=== PATIENT | female | born 1995 | race Caucasian/White ===

== ENCOUNTER 2020-04-18 10:59 | Outpatient (REF) | payer BC, SELFPAY | END 2020-04-18 11:00 | disposition home or self-care (01) | LOC: HO.LAB 10:59 | PROVIDERS: PCP Internal Medicine Medical Oncology; Visit Provider Internal Medicine | DX: Z20.828 Contact with and (suspected) exposure to other viral communicable diseases (principal) | CPT/HCPCS: 87635 ==

== ENCOUNTER 2020-06-10 06:21 | Emergency (ER) | payer BC, SELFPAY ==
[2020-06-10 06:24] VITALS: BP 151/94; PULSE 116; RESP 16; TEMP 36.6; O2SAT 97; BMI 48.0
--- NOTE | 2020-06-10 06:39 | ED.GENADULT ---
HPI - General Adult General Chief complaint: General Medical Stated complaint: abscess Time Seen by Provider: 06/10/20 06:39 Source: patient Mode of arrival: ambulatory Limitations: no limitations History of Present Illness MD complaint: labial abscess Onset (ago): day(s) (4) Location: genitals Severity: moderate Quality: burning and stabbing Pain Consistency: constant Relieving factors: none Exacerbating factors: none Associated symptoms: fever/chills Treatments prior to arrival: none Related Data Previous Rx's Medication Instructions Recorded cephalexin 500 mg PO TID 7 Days #21 cap 06/10/20 doxycycline hyclate 100 mg PO BID 7 Days #14 tab 06/10/20 hydrocodone-acetaminophen 1 tab PO Q6H PRN #12 tab 06/10/20 ibuprofen 600 mg PO Q6H PRN #30 tab 06/10/20 ondansetron 4 mg PO Q8H PRN #20 tab 06/10/20 Allergies Allergy/AdvReac Type Severity Reaction Status Date / Time No Known Allergies Allergy Verified 06/10/20 06:23 Review of Systems Review of Systems: Constitutional : No Fever, pos Chills ENT/Mouth : No sore throat, No Rhinorrhea Eyes: No Eye Pain, No Swelling, No Redness Cardiovascular : No Chest Pain, No SOB Respiratory : No Cough, No Sputum Gastrointestinal : No Nausea, No Vomiting, No Diarrhea, No abdominal Pain Genitourinary : No Dysuria, No Hematuria Musculoskeletal : No joint pain, No Myalgias, No Joint Swelling Skin : pos Skin Lesions, positive skin rash Neuro : No Weakness, No Numbness, No Headache Psych : No Anxiety, No Depression Heme/Lymph: No Bruising, No Bleeding,No Lymphadenopathy Endocrine : No Polyuria, No Polydipsia All other systems reviewed and are negative [facility] Past Medical History Attestation statement: The following information was validated with the patient. Medical History No known health problems Social History Social History (Updated 06/10/20 @ 06:44 by Telma Valadez DO) Smoking Status: Current every day smoker Use of substances other than those prescribed or required for medical reasons: No Advance Directives: No Advance Directives Information Provided: No Physical Exam Vital Signs: Vital Signs: Last Vital Signs Temp 98 F 06/10/20 06:24 Pulse 116 H 06/10/20 06:24 Resp 16 06/10/20 06:24 BP 151/94 H 06/10/20 06:24 Pulse Ox 97 06/10/20 06:24 Body Mass Index 48.0 Appearance: Alert. Oriented X3. No acute distress. Eyes: Pupils equal, round and reactive to light. ENT: Pharynx normal. Neck: Normal inspection. Neck supple. CVS: Normal heart rate and rhythm. Pulses normal. Respiratory: No respiratory distress. Breath sounds normal. Abdomen: Soft and nontender. : R labia 3cm abscess noted no overlying erythema or cellulitis no crepitus Skin: Skin warm and dry. Normal skin color. Normal skin turgor. Extremities: No lower extremity edema. No calf ttp Neuro: Oriented X 3. No motor deficit. No sensory deficit. Procedures Abscess I/D Site: other (LABIA) Side (if applicable): right Sedation/analgesia: none Local Anesthetic: lidocaine 2% Amount of anesthesia used (mL): 5 Technique: incised with blade Amount of fluid expressed (mL): 10 Sent for culture/gram staining?: No Irrigation: Yes Packing used?: none Medical Decision Making MDM Narrative Medical decision making narrative: 24 yo female with a hx of boils on her legs here with R labial abscess x 3 days, will start on oral antibiotics and I/D area - anticipate close follow up for wound care, no concern for necrotizing infection Discharge Plan Discharge Clinical Impression: Abscess of labia Patient Disposition: Home, Self-Care Instructions: Abscess (ED), Abscess Incision and Drainage (DC) Additional Instructions: return to ED for any worsening symptoms or concerns, can come back to ED on Thursday or for wound recheck take antibiotics, okay to take a shower, wound needs to be rechecked in 2 to 3 days Prescriptions: New hydrocodone-acetaminophen 5-325 mg tablet 1 tab PO Q6H PRN (Reason: pain) Qty: 12 RF: 0 ibuprofen 600 mg tablet 600 mg PO Q6H PRN (Reason: pain) Qty: 30 RF: 0 ondansetron 4 mg tablet,disintegrating 4 mg PO Q8H PRN (Reason: nausea and vomiting) Qty: 20 RF: 0 cephalexin 500 mg capsule 500 mg PO TID 7 Days Qty: 21 RF: 0 doxycycline hyclate 100 mg tablet 100 mg PO BID 7 Days Qty: 14 RF: 0 Referrals: Omi Lopez MD [Primary Care Provider] - 2 days Stand Alone Forms: Work/School Release
[2020-06-10] MEDS: cephALEXin 500 MG CAPSULE PO (07:03)
[2020-06-10] MEDS: oxyCODONE HCl Immed Release 5 MG TABLET 10 MG PO (07:03)
[2020-06-10] MEDS: Lidocaine HCl 2 % MPF 5 ML VIAL SUBCUT (07:15)
== END 2020-06-10 08:34 | disposition home or self-care (01) ==
PROVIDERS: Emergency Provider Emergency Medicine; PCP Internal Medicine Medical Oncology
DX: N76.4 Abscess of vulva (principal); F17.200 Nicotine dependence, unspecified, uncomplicated
CPT/HCPCS: 56405; 99283

== ENCOUNTER 2020-06-13 06:51 | Emergency (ER) | payer BC, SELFPAY ==
[2020-06-13 06:54] VITALS: BP 137/83; PULSE 87; RESP 16; TEMP 36; O2SAT 98; BMI 48.0
--- NOTE | 2020-06-13 07:25 | PC.NURSE ---
HERE FOR ABSCESS REEVAL POST 3 DAYS. AWAITING EVAL BY ATTENDING
--- NOTE | 2020-06-13 07:28 | ED.SKABFB ---
HPI - Skin/Abscess/Foreign Bdy General Chief complaint: Skin/Abscess/Foreign Body Stated complaint: Wound check Time Seen by Provider: 06/13/20 07:28 Source: patient Mode of arrival: ambulatory Limitations: no limitations History of Present Illness MD complaint: abscess/boil Onset (ago): day(s) (5) Tetanus up to date: yes Location: genitals Severity: mild Relieving factors: none Exacerbating factors: none Associated symptoms: denies other symptoms Treatments prior to arrival: other (s/p I + D 3 days ago doing well on antibiotics) Related Data Previous Rx's Medication Instructions Recorded cephalexin 500 mg PO TID 7 Days #21 cap 06/10/20 doxycycline hyclate 100 mg PO BID 7 Days #14 tab 06/10/20 hydrocodone-acetaminophen 1 tab PO Q6H PRN #12 tab 06/10/20 ibuprofen 600 mg PO Q6H PRN #30 tab 06/10/20 ondansetron 4 mg PO Q8H PRN #20 tab 06/10/20 Allergies Allergy/AdvReac Type Severity Reaction Status Date / Time No Known Allergies Allergy Verified 06/10/20 06:23 Review of Systems Review of Systems: Constitutional : No Fever, No Chills ENT/Mouth : No sore throat, No Rhinorrhea Eyes: No Eye Pain, No Swelling, No Redness Cardiovascular : No Chest Pain, No SOB Respiratory : No Cough, No Sputum Gastrointestinal : No Nausea, No Vomiting, No Diarrhea, No abdominal Pain Genitourinary : No Dysuria, No Hematuria Musculoskeletal : No joint pain, No Myalgias, No Joint Swelling Skin : pos Skin Lesions, no skin rash Neuro : No Weakness, No Numbness, No Headache Psych : No Anxiety, No Depression [facility] Past Medical History Attestation statement: The following information was validated with the patient. Medical History No known health problems Social History Social History Smoking Status: Current every day smoker Advance Directives: No Advance Directives Information Provided: Yes Physical Exam Vital Signs: Vital Signs: Last Vital Signs Temp 96.8 F 06/13/20 06:54 Pulse 87 06/13/20 06:54 Resp 16 06/13/20 06:54 BP 137/83 06/13/20 06:54 Pulse Ox 98 06/13/20 06:54 Body Mass Index 48.0 Appearance: Alert. Oriented X3. No acute distress. Eyes: Pupils equal, round and reactive to light. ENT: Pharynx normal. Neck: Normal inspection. Neck supple. CVS: Normal heart rate and rhythm. Pulses normal. Respiratory: No respiratory distress. Breath sounds normal. Abdomen: Soft and nontender. : R labia looks good scant ss drainage no recollection no cellulitis Skin: Skin warm and dry. Normal skin color. Normal skin turgor. Extremities: No lower extremity edema. No calf ttp Neuro: Oriented X 3. No motor deficit. No sensory deficit. MDM - Skin/Abscess/Foreign Bdy MDM Narrative Medical decision making narrative: 24 yo female s/p I+D well healing no systemic symptoms stable for DC Discharge Plan Discharge Clinical Impression: Abscess Patient Disposition: Home, Self-Care Instructions: Abscess (ED) Additional Instructions: complete antibiotics area is healing well Prescriptions: No Action hydrocodone-acetaminophen 5-325 mg tablet 1 tab PO Q6H PRN (Reason: pain) Qty: 12 RF: 0 ibuprofen 600 mg tablet 600 mg PO Q6H PRN (Reason: pain) Qty: 30 RF: 0 ondansetron 4 mg tablet,disintegrating 4 mg PO Q8H PRN (Reason: nausea and vomiting) Qty: 20 RF: 0 cephalexin 500 mg capsule 500 mg PO TID 7 Days Qty: 21 RF: 0 doxycycline hyclate 100 mg tablet 100 mg PO BID 7 Days Qty: 14 RF: 0
== END 2020-06-13 07:40 | disposition home or self-care (01) ==
PROVIDERS: Emergency Provider Emergency Medicine; PCP Internal Medicine Medical Oncology
DX: Z48.00 Encounter for change or removal of nonsurgical wound dressing (principal); N76.4 Abscess of vulva
CPT/HCPCS: 99283

== ENCOUNTER 2020-06-13 07:44 | Outpatient (REF) | payer BC, SELFPAY | END 2020-06-13 07:45 | disposition home or self-care (01) | LOC: HO.LAB 07:44 | PROVIDERS: PCP Internal Medicine Medical Oncology; Visit Provider Internal Medicine | DX: Z20.828 Contact with and (suspected) exposure to other viral communicable diseases (principal) | CPT/HCPCS: C9803; U0003 ==

== ENCOUNTER 2020-06-25 07:22 | Outpatient (REF) | payer OTHER, SELFPAY | END 2020-06-25 07:23 | disposition home or self-care (01) | LOC: HO.LAB 07:22 | PROVIDERS: Visit Provider Internal Medicine | DX: Z20.822 Contact with and (suspected) exposure to COVID-19 (principal) | CPT/HCPCS: 36415; C9803; U0003 ==

== ENCOUNTER 2020-12-05 13:29 | Outpatient (REF) | payer OTHER, SELFPAY ==
[2020-12-05 14:19] LABS: MANUAL DIFF FLAG NO
[2020-12-05 14:27] LABS: Basophils Percent Auto 0.2 % (0-2); Eosinophils Absolute Auto 0.1 X10*3/uL (0.0-0.4); Eosinophils Percent Auto 0.9 % (0-4); Hemoglobin 14.2 g/dl (12.0-16.0); Imm Gran Abs Auto 0.06 X10*3/uL (0.00-0.03); Imm Gran Pct Auto 0.5 % (0.0-0.4); Lymphocytes Absolute Auto 3.1 X10*3/uL (1.2-4.9); Lymphocytes Percent Auto 24.3 % (20-40); Mean Corpuscular Volume 93.9 fL (80-98); Monocytes Absolute Auto 0.9 X10*3/uL (0.1-1.2); Monocytes Percent Auto 6.7 % (2-11); Neutrophils Absolute Auto 8.6 X10*3/uL (2.0-8.3); Neutrophils Percent Auto 67.4 % (45-73); Platelet Count 320 X10*3/uL (160-400); Red Blood Count 4.58 X10*6/uL (4.20-5.50); Red Cell Distribution Width 12.2 % (11.0-16.0); White Blood Count 12.7 X10*3/uL (4.8-10.8)
[2020-12-05 14:38] LABS: Estimated Average Glucose 103 mg/dL; Hemoglobin A1c % 5.2 %
[2020-12-05 14:46] LABS: Alanine Aminotransferase 16 U/L (0-31); Albumin Level 4.4 g/dL (3.5-5.0); Alkaline Phosphatase 79 U/L (39-117); Anion Gap 11 (12-20); Aspartate Amino Transferase 15 U/L (5-31); Bilirubin Total 0.4 mg/dL (0.0-1.0); Blood Urea Nitrogen 11 mg/dL (9-16); Calcium 9.2 mg/dL (8.4-10.2); Carbon Dioxide 24 mmol/L (22-29); Chloride 106 mmol/L (96-108); Cholesterol 184 mg/dL; Estimated Glomerular Filt Rate > 60; Glucose Fasting 78 mg/dL (60-99); HDL Cholesterol 38 mg/dL; LDL Cholesterol Calculated 123 mg/dl; Potassium 4.2 mmol/L (3.3-5.1); Sodium 137 mmol/L (135-145); Total Protein 7.2 g/dL (6.5-8.0); Triglycerides 118 mg/dL
== END 2020-12-05 13:30 | disposition home or self-care (01) ==
LOC: HO.LAB 13:29
PROVIDERS: PCP Internal Medicine Medical Oncology; Visit Provider Internal Medicine Medical Oncology
DX: Z00.00 Encounter for general adult medical examination without abnormal findings (principal); R73.03 Prediabetes; R73.9 Hyperglycemia, unspecified
CPT/HCPCS: 36415; 80053; 80061; 83036; 85025

== ENCOUNTER 2020-12-18 11:33 | Emergency (ER) | payer OTHER, SELFPAY ==
[2020-12-18 12:19] VITALS: PULSE 88; RESP 16; TEMP 36.7; O2SAT 97; BMI 45.7
[2020-12-18] MEDS: Ketorolac Tromethamine 30 MG/ML VIAL IM (13:11)
[2020-12-18] MEDS: Lidocaine 4 % Patch ADH..PATCH 1 PATCH TRANSDERMA (13:11)
[2020-12-18] MEDS: oxyCODONE HCl Immed Release 5 MG TABLET PO (13:13)
[2020-12-18] MEDS: Cyclobenzaprine HCl 5 MG TABLET PO (13:31)
--- NOTE | 2020-12-18 14:06 | ED_ITS ---
HPI - Back Pain/Injury General Chief Complaint: Back Pain/Injury Stated Complaint: back pain Time Seen by Provider: 12/18/20 12:47 Source: patient Mode of arrival: ambulatory History of Present Illness HPI Narrative: 25-year-old female with past medical history sciatica presenting to the ED complaining of low back pain radiating down right lower extremity s/p walking down the stairs yesterday. Reports her sciatica is exacerbated. Denies direct injury/trauma or falls. Denies numbness, tingling, weakness, urinary incontinence /retention. MD elicited complaint: back pain Related Data Previous Rx's Medication Instructions Recorded cephalexin 500 mg PO TID 7 Days #21 cap 06/10/20 doxycycline hyclate 100 mg PO BID 7 Days #14 tab 06/10/20 hydrocodone-acetaminophen 1 tab PO Q6H PRN #12 tab 06/10/20 ibuprofen 600 mg PO Q6H PRN #30 tab 06/10/20 ondansetron 4 mg PO Q8H PRN #20 tab 06/10/20 acetaminophen [Tylenol Extra 500 mg PO Q6H PRN #20 tab 12/18/20 Strength] acetaminophen [Tylenol Extra 500 mg PO Q6H PRN #20 tab 12/18/20 Strength] cyclobenzaprine 5 mg PO Q8H PRN 5 Days #14 tab 12/18/20 lidocaine [Lidoderm] 1 patch TOPICAL DAILY PRN #30 ea 12/18/20 MDD remove after 12 hours naproxen 500 mg PO BID PRN 10 Days #20 tab 12/18/20 Allergies Allergy/AdvReac Type Severity Reaction Status Date / Time No Known Allergies Allergy Verified 06/10/20 06:23 Review of Systems Review of Systems: Constitutional: No Fever, No Chills Genitourinary: No Urinary Incontinence/retention Musculoskeletal:+back pain, No Myalgias, No Joint Swelling Skin: No Skin Lesions, No rash Neuro: No Weakness, No Numbness, No Paresthesias Yes all other systems are reviewed and are negative Neurologic: Denies Sensory deficit (Neuro) [facility] Past Medical History Attestation statement: The following information was validated with the patient. Medical History No known health problems Social History Social History Advance Directives: No Advance Directives Information Provided: No Patient : No Physical Exam Vital Signs: Vital Signs: Last Vital Signs Temp 98.1 F 12/18/20 12:19 Pulse 88 12/18/20 12:19 Resp 16 12/18/20 12:19 Pulse Ox 97 12/18/20 12:19 Body Mass Index 45.7 Const: General: cooperative and healthy appearing Orientation/consciousness: patient oriented x3 Limitations: no limitations HENMT: Head: Yes normal to inspection Ears: hearing grossly normal bilaterally General nose exam: Normal external nose present Face and sinus: Yes normal facial exam Eyes: General: appearance normal, both eyes and all related structures EOM: EOMs intact bilaterally Neck: Neck: Yes normal visual inspection and Yes no meningeal signs Resp: Effort & Inspection: normal respiratory effort Cardio: Rate: regular rate Back/Spine/Pelvis: Other: no midline thoracic/lumbar spinous tenderness, step- offs or deformity. +R sided lumbar MSK tenderness palpation and R sided buttock ttp Skin: Rashes: no rashes Wounds: no wounds Neuro: Other: no saddle anesthesia General: patient oriented x3, tone normal, moves all extremities and no meningeal signs Gait exam (Neuro): Normal gait present Motor exam (neuro): 5/5 motor strength present throughout Sensory Exam: No Sensory deficit (Neuro) Extrem: General: Yes normal to inspection MDM - Back Pain/Injury MDM Narrative Medical decision making narrative: 25-year-old female with past medical history sciatica presenting to the ED complaining of low back pain radiating down right lower extremity s/p walking down the stairs yesterday. On exam VSS, NAD, well appearing, no midline spinous tenderness throughout, no red flag symptoms. likely MSK pain / sciatica. Low concern for cauda equina/ cord compression or fracture/dislocation Discharge Plan Discharge Clinical Impression: Sciatica Qualifiers: Laterality: right Qualified Code(s): M54.31 - Sciatica, right side Patient Disposition: Home, Self-Care Instructions: Sciatica (ED), Lower Back Exercises (ED) Additional Instructions: Your pain is likely musculoskeletal Flexeril is a muscle relaxer, take at night as it makes you drowsy, do not d rive, drink alcohol, or operate machinery while taking it Naproxen as an anti-inflammatory / pain medication, take with food Lidoderm patches are numbing patches, apply to painful area In addition take Tylenol at home If symptoms persist or worsen, pain becomes unbearable, you developed urinary retention or incontinence, or weakness return to the ED Prescriptions: New acetaminophen [Tylenol Extra Strength] 500 mg tablet 500 mg PO Q6H PRN (Reason: pain or fever) Qty: 20 RF: 0 lidocaine [Lidoderm] 5 % adhesive patch,medicated 1 patch topical DAILY MDD remove after 12 hours PRN (Reason: pain) Qty: 30 RF: 0 naproxen 500 mg tablet 500 mg PO BID PRN (Reason: pain) 10 Days Qty: 20 RF: 0 cyclobenzaprine 5 mg tablet 5 mg PO Q8H PRN (Reason: pain (scale score 7-10)) 5 Days Qty: 14 RF: 0 acetaminophen [Tylenol Extra Strength] 500 mg tablet 500 mg PO Q6H PRN (Reason: pain or fever) Qty: 20 RF: 0 No Action hydrocodone-acetaminophen 5-325 mg tablet 1 tab PO Q6H PRN (Reason: pain) Qty: 12 RF: 0 ibuprofen 600 mg tablet 600 mg PO Q6H PRN (Reason: pain) Qty: 30 RF: 0 ondansetron 4 mg tablet,disintegrating 4 mg PO Q8H PRN (Reason: nausea and vomiting) Qty: 20 RF: 0 cephalexin 500 mg capsule 500 mg PO TID 7 Days Qty: 21 RF: 0 doxycycline hyclate 100 mg tablet 100 mg PO BID 7 Days Qty: 14 RF: 0 Referrals: Omi Lopez MD [Primary Care Provider] - 2 days Stand Alone Forms: Work/School Release Interventions: ED Discharge Assessment Last Done: 12/18/20 14:24 Discharge Date/Time: 12/18/20 14:28 Print Language: Indonesian
== END 2020-12-18 14:28 | disposition home or self-care (01) ==
PROVIDERS: Emergency Provider Emergency Medicine Emergency Medical Services; PCP Internal Medicine Medical Oncology
DX: M54.41 Lumbago with sciatica, right side (principal)
CPT/HCPCS: 96372; 99284; J1885

== ENCOUNTER 2020-12-28 15:53 | Outpatient (REF) | payer OTHER, SELFPAY ==
--- NOTE | ~2020-12-28 | XR_ITS ---
EXAMINATION: LUMBAR SPINE AND PELVIS X-RAY CLINICAL INFORMATION: Low back pain. Sciatica. COMPARISON: Previous lumbar spine x-ray August 2010 TECHNIQUE: 5 views of the lumbar spine. One view of the pelvis. FINDINGS: Lumbar spine: There is mild curvature of the lumbar spine to the left. Bone alignment is otherwise normal. No fracture or dislocation is seen. There is mild degenerative disc disease at L5-S1. There is partial sacralization of the left L5 transverse process. Facet joints are normal. No pars defect is seen. Pelvis: Bone alignment is normal. No fracture or dislocation is seen. The joint spaces are normal. Soft tissues are normal. XR/XR lumbar spine 4V min IMPRESSION: Lumbar spine: Mild degenerative disc disease at L5-S1. Partial sacralization of the left L5 transverse process. Pelvis: Unremarkable exam.
--- NOTE | ~2020-12-28 | XR_ITS ---
EXAMINATION: LUMBAR SPINE AND PELVIS X-RAY CLINICAL INFORMATION: Low back pain. Sciatica. COMPARISON: Previous lumbar spine x-ray August 2010 TECHNIQUE: 5 views of the lumbar spine. One view of the pelvis. FINDINGS: Lumbar spine: There is mild curvature of the lumbar spine to the left. Bone alignment is otherwise normal. No fracture or dislocation is seen. There is mild degenerative disc disease at L5-S1. There is partial sacralization of the left L5 transverse process. Facet joints are normal. No pars defect is seen. Pelvis: Bone alignment is normal. No fracture or dislocation is seen. The joint spaces are normal. Soft tissues are normal. XR/XR pelvis 1-2V IMPRESSION: Lumbar spine: Mild degenerative disc disease at L5-S1. Partial sacralization of the left L5 transverse process. Pelvis: Unremarkable exam.
== END 2020-12-28 15:54 | disposition home or self-care (01) ==
LOC: HO.XRAY 15:53
PROVIDERS: PCP Internal Medicine Medical Oncology; Visit Provider Internal Medicine Medical Oncology
DX: M54.5 Low back pain (principal); M54.9 Dorsalgia, unspecified; M54.30 Sciatica, unspecified side
CPT/HCPCS: 72110; 72170

== ENCOUNTER 2021-03-21 17:00 | Outpatient (RCR) | payer OTHER, MEDICAID, SELFPAY | END 2021-04-22 10:41 | disposition home or self-care (01) | LOC: HO.PT 17:00 | PROVIDERS: PCP Internal Medicine Medical Oncology; Visit Provider Physician Assistant | DX: M51.16 Intervertebral disc disorders with radiculopathy, lumbar region (principal) | CPT/HCPCS: 97012; 97110; 97161; 97530 ==

== ENCOUNTER 2021-08-14 12:06 | Outpatient (REF) | payer OTHER, SELFPAY ==
[2021-08-14 14:00] LABS: Hematocrit 42.8 % (37.0-47.0); Hemoglobin 14.2 g/dl (12.0-16.0); Mean Corpuscular HGB Conc 33.2 g/dl (31.0-35.0); Mean Corpuscular Hemoglobin 31.3 pg (27.0-33.0); Mean Corpuscular Volume 94.3 fL (80.0-98.0); Mean Platelet Volume 9.1 fL (9.4-12.3); Platelet Count 325 X10*3/uL (160-400); Red Blood Count 4.54 X10*6/uL (4.20-5.50); Red Cell Distribution Width 12.6 % (11.0-16.0); White Blood Count 10.9 X10*3/uL (4.8-10.8)
[2021-08-14 14:37] LABS: Erythrocyte Sedimentation Rate 12 MM/HR (0-20)
[2021-08-14 14:40] LABS: Free T4 (Free Thyroxine) 0.87 ng/dL (0.71-1.85); HCG Quantitative < 2 mIU/mL; Thyroid Stimulating Hormone 1.62 uIU/mL (0.32-4.0)
[2021-08-15 07:41] LABS: Prolactin 6.6 ng/mL
== END 2021-08-14 12:07 | disposition home or self-care (01) ==
LOC: HO.10HDL 12:06
PROVIDERS: Visit Provider Obstetrics & Gynecology
DX: O92.6 Galactorrhea (principal)
CPT/HCPCS: 36415; 84146; 84439; 84443; 84702; 85027; 85652

== ENCOUNTER 2022-01-31 09:14 | Outpatient (REF) | payer OTHER, SELFPAY ==
--- NOTE | ~2022-01-31 | XR_ITS ---
EXAMINATION: XR FOOT, LEFT CLINICAL INFORMATION: Left foot pain. Bruising and swelling lateral foot for one week. COMPARISON: None TECHNIQUE: AP, lateral, and oblique views of the left foot. FINDINGS: No acute or healing fracture, dislocation, or destructive process. Bony mineralization normal. No calcaneal spurring. Subtalar joint unremarkable. Retrocalcaneal recess preserved. No joint narrowing or erosive changes. XR/XR foot LT min 3V IMPRESSION: No fracture, dislocation, or arthropathy.
== END 2022-01-31 09:15 | disposition home or self-care (01) ==
LOC: HO.XRAY 09:14
PROVIDERS: PCP Internal Medicine Medical Oncology; Visit Provider Internal Medicine Medical Oncology
DX: M79.672 Pain in left foot (principal)
CPT/HCPCS: 73630

== ENCOUNTER 2022-03-28 08:45 | Outpatient (REF) | payer OTHER, SELFPAY ==
--- NOTE | ~2022-03-28 | XR_ITS ---
EXAMINATION: XR CHEST CLINICAL INFORMATION: Obesity COMPARISON: Previous chest x-ray September 2014 TECHNIQUE: 2 views of the chest were obtained. FINDINGS: No significant abnormality is noted involving the heart, lungs, mediastinum, bony thorax or soft tissues. XR/XR chest 2V IMPRESSION: Unremarkable examination.
[2022-03-28 09:26] LABS: Basophils Percent Auto 0.4 % (0-2); Eosinophils Absolute Auto 0.1 X10*3/uL (0.0-0.4); Eosinophils Percent Auto 1.3 % (0-4); Hematocrit 42.3 % (37.0-47.0); Hemoglobin 14.2 g/dl (12.0-16.0); Imm Gran Abs Auto 0.04 X10*3/uL (0.00-0.03); Imm Gran Pct Auto 0.4 % (0.0-0.4); Lymphocytes Absolute Auto 2.1 X10*3/uL (1.2-4.9); Lymphocytes Percent Auto 19.9 % (20-40); MANUAL DIFF FLAG SCAN; Mean Corpuscular HGB Conc 33.6 g/dl (31.0-35.0); Mean Corpuscular Volume 92.4 fL (80.0-98.0); Monocytes Absolute Auto 0.7 X10*3/uL (0.1-1.2); Monocytes Percent Auto 6.6 % (2-11); Neutrophils Absolute Auto 7.4 x10*3/uL (2.0-8.3); Neutrophils Percent Auto 71.4 % (45-73); PLT CLUMP 1; Red Blood Count 4.58 X10*6/uL (4.20-5.50); Red Cell Distribution Width 12.2 % (11.0-16.0); SCAN SMEAR FLAG 1
[2022-03-28 09:47] LABS: Alanine Aminotransferase 14 U/L (0-31); Alkaline Phosphatase 73 U/L (39-117); Anion Gap 15 (12-20); Aspartate Amino Transferase 15 U/L (5-31); Bilirubin Total 0.3 mg/dL (0.0-1.0); Blood Urea Nitrogen 11 mg/dL (9-16); C Reactive Protein 0.52 mg/dL (< or = 0.50); Calcium 8.9 mg/dL (8.4-10.2); Carbon Dioxide 21 mmol/L (22-29); Chloride 107 mmol/L (96-108); Cholesterol 209 mg/dL; Estimated Glomerular Filt Rate > 60; Glucose Random 94 mg/dL (60-115); HDL Cholesterol 38 mg/dL; Iron 79 mcg/dL (30-160); LDL Cholesterol Calculated 150 mg/dl; Percent Iron Saturation 24 % (15-50); Potassium 4.6 mmol/L (3.3-5.1); Sodium 138 mmol/L (135-145); Total Iron Binding Capacity 324 mcg/dL (228-428); Total Protein 6.7 g/dL (6.5-8.0); Triglycerides 109 mg/dL; Unsaturated Iron Binding 245 ug/dL
[2022-03-28 10:11] LABS: Ferritin 137 ng/mL (10-122); Insulin 16 uU/mL (2-29); TSH reflex Free T4 1.78 uIU/mL (0.32-4.0); Vitamin D 25-OH Total 24.5 ng/mL (>30)
[2022-03-28 10:25] LABS: Estimated Average Glucose 100 mg/dL; Hemoglobin A1c % 5.1 %
[2022-03-28 10:26] LABS: Platelet Count 245 X10*3/uL (160-400); White Blood Count 10.3 X10*3/uL (4.8-10.8)
[2022-03-28 10:27] LABS: SLIDE REVIEW VERIFIED
[2022-03-28 10:30] LABS: Vitamin B12 269 pg/mL (200-900)
--- NOTE | 2022-03-28 10:45 | ECG_ITS ---
Test Reason : obesity Blood Pressure : / mmHG Vent. Rate : 067 BPM Atrial Rate : 067 BPM P-R Int : 162 ms QRS Dur : 092 ms QT Int : 400 ms P-R-T Axes : 043 060 021 degrees QTc Int : 422 ms Normal sinus rhythm with sinus arrhythmia Normal ECG No previous ECGs available Referred By: Minoo Arellano Electronically Signed By:HARI PETERSON
[2022-03-28 15:09] LABS: H Pylori Breath Test Negative (Negative)
[2022-03-30 13:41] LABS: Calcium (PTHI) 8.8 mg/dL (8.6-10.2); PTHI 38 pg/mL (16-77)
[2022-04-02 06:12] LABS: Zinc 83 mcg/dL (60-130)
[2022-04-02 16:12] LABS: Vitamin B1 8 nmol/L (8-30)
[2022-04-02 17:33] LABS: Vitamin A 38 mcg/dL (38-98)
== END 2022-03-28 08:46 | disposition home or self-care (01) ==
LOC: HO.XRAY 08:45
PROVIDERS: PCP Internal Medicine Medical Oncology; Visit Provider Physician Assistant
DX: E66.01 Morbid (severe) obesity due to excess calories (principal); K21.9 Gastro-esophageal reflux disease without esophagitis; G47.33 Obstructive sleep apnea (adult) (pediatric)
CPT/HCPCS: 36415; 71046; 80053; 80061; 82306; 82607; 82728; 82746; 83013; 83036; 83525; 83540; 83970; 84425; 84443; 84590; 84630; 85025; 86140; 93005; 99211; 99212

== ENCOUNTER → 2022-04-01 13:21 | Outpatient (BNVA) | payer OTHER, SELFPAY | PROVIDERS: PCP Internal Medicine Medical Oncology; Visit Provider Dietitian, Registered | DX: E66.01 Morbid (severe) obesity due to excess calories (principal) | CPT/HCPCS: 97802 ==

== ENCOUNTER → 2022-04-02 11:00 | Outpatient (BNVA) | payer OTHER, SELFPAY | PROVIDERS: PCP Internal Medicine Medical Oncology; Visit Provider Counselor Mental Health | DX: F43.20 Adjustment disorder, unspecified (principal); E66.01 Morbid (severe) obesity due to excess calories; Z63.4 Disappearance and death of family member | CPT/HCPCS: 90791 ==

== ENCOUNTER 2022-08-25 11:23 | Outpatient (REF) | payer OTHER, SELFPAY ==
--- NOTE | ~2022-08-25 | XR_ITS ---
EXAMINATION: XR ANKLE, LEFT CLINICAL INFORMATION: Pain. COMPARISON: Radiographs dated 01/31/2022. TECHNIQUE: AP, lateral, and mortise views of the left ankle. FINDINGS: Bony alignment and mineralization are normal. The ankle mortise is intact. No fracture, dislocation or left ankle joint effusion is seen. Boehler's angle is normal. There is no calcaneal spur. No unusual degenerative change is seen. There is mild generalized soft tissue swelling. XR/XR ankle LT min 3V IMPRESSION: There is mild generalized soft tissue swelling. Otherwise, unremarkable examination.
== END 2022-08-25 11:24 | disposition home or self-care (01) ==
LOC: HO.LAB 11:23
PROVIDERS: PCP Internal Medicine Medical Oncology; Visit Provider Internal Medicine Medical Oncology
DX: M25.572 Pain in left ankle and joints of left foot (principal)
CPT/HCPCS: 73610

== ENCOUNTER 2023-03-10 17:39 | Outpatient (REF) | payer OTHER, SELFPAY | END 2023-03-10 17:40 | disposition home or self-care (01) | LOC: HO.LNP 17:39 | PROVIDERS: Visit Provider Internal Medicine Medical Oncology | DX: L02.91 Cutaneous abscess, unspecified (principal) | CPT/HCPCS: 87070; 87077; 87186; 87205 ==

== ENCOUNTER 2023-06-05 09:55 | Outpatient (REF) | payer OTHER, SELFPAY ==
--- NOTE | ~2023-06-05 | XR_ITS ---
EXAMINATION: XR HAND, LEFT CLINICAL INFORMATION: Left hand pain COMPARISON: None available. TECHNIQUE: PA, lateral, and oblique views of the left hand. FINDINGS: BONES: Bony structures are intact. A sclerotic bone island measuring 0.3 cm in diameter is seen at the left fifth metacarpal head. There is no focal bone destruction or periosteal reaction seen. JOINTS: Alignment of joints is normal. SOFT TISSUE: Soft tissue is normal. No radiopaque foreign body or abnormal air collection is seen. XR/XR hand LT min 3V IMPRESSION: 1. Left fifth metacarpal head sclerotic bone island is present. 2. No fracture or dislocation or signs of osteomyelitis are found.
--- NOTE | ~2023-06-05 | XR_ITS ---
EXAMINATION: XR HAND, RIGHT CLINICAL INFORMATION: Right hand pain COMPARISON: None available. TECHNIQUE: PA, lateral, and oblique views of the right hand. FINDINGS: BONES: Bony structures are intact. There is no focal bone destruction or periosteal reaction seen. JOINTS: Alignment of joints is normal. SOFT TISSUE: Soft tissue is normal. No radiopaque foreign body or abnormal air collection is seen. XR/XR hand RT min 3V IMPRESSION: 1. Normal x-rays of right hand. No fracture or dislocation or signs of osteomyelitis are found.
== END 2023-06-05 09:56 | disposition home or self-care (01) ==
LOC: HO.XRAY 09:55
PROVIDERS: PCP Internal Medicine Medical Oncology; Visit Provider Internal Medicine Medical Oncology
DX: M79.641 Pain in right hand (principal); M79.642 Pain in left hand
CPT/HCPCS: 73130

== ENCOUNTER 2023-07-24 09:37 | Emergency (ER) | payer OTHER, SELFPAY ==
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
[2023-07-24 09:43] VITALS: BP 152/86; PULSE 90; RESP 16; TEMP 36.7
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
[2023-07-24] MEDS: Acetaminophen 325 MG TABLET 975 MG PO (11:10)
[2023-07-24] MEDS: Ibuprofen 800 MG TABLET PO (11:11)
== END 2023-07-24 12:45 | disposition home or self-care (01) ==
PROVIDERS: Emergency Provider Emergency Medicine Emergency Medical Services; PCP Internal Medicine Medical Oncology
DX: M54.16 Radiculopathy, lumbar region (principal)
CPT/HCPCS: 72100; 99283

== ENCOUNTER 2023-07-28 07:46 | Emergency (ER) | payer OTHER, SELFPAY ==
--- NOTE | ~2023-07-28 | XR_ITS ---
EXAMINATION: XR CHEST CLINICAL INFORMATION: Cough/SOB COMPARISON: None available. TECHNIQUE: 2 views of the chest were obtained. FINDINGS: No significant abnormality is noted involving the heart, lungs, mediastinum, bony thorax or soft tissues. XR/XR chest 2V IMPRESSION: Unremarkable chest examination.
[2023-07-28 07:49] VITALS: BP 128/89; PULSE 106; RESP 24; TEMP 37.1; O2SAT 96; BMI 49.3
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
[2023-07-28 09:05] LABS: Influenza A PCR POSITIVE (Negative); Influenza B PCR NEGATIVE (Negative); Resp Syncy Virus RNA Qual PCR NEGATIVE (Negative); SARS COV2 PCR INHOUSE NEGATIVE (Negative)
== END 2023-07-28 09:41 | disposition home or self-care (01) ==
PROVIDERS: Emergency Provider Emergency Medicine; PCP Internal Medicine Medical Oncology
DX: J10.1 Influenza due to other identified influenza virus with other respiratory manifestations (principal); R05.9 Cough, unspecified; R09.89 Other specified symptoms and signs involving the circulatory and respiratory systems; R06.02 Shortness of breath; R51.9 Headache, unspecified
CPT/HCPCS: 0241U; 71046; 99282; 99283

== ENCOUNTER → 2023-11-02 08:58 | Outpatient (BNVA) | payer OTHER, SELFPAY | PROVIDERS: PCP Internal Medicine Medical Oncology; Visit Provider Physician Assistant Surgical ==

== ENCOUNTER 2023-12-25 08:04 | Outpatient (AMB) | payer OTHER, SELFPAY ==
--- NOTE | 2023-12-25 09:02 | A.OFFVIS_ITS ---
VS Expanded 12/25/23 09:13 Height 5 ft 4 in Weight 282 lb 2 oz BMI 48.4 Body Fat % 48.4 Body Fat Mass 136.4 Fat Free Mass 145.8 Visceral Fat Rating 14 Body Water % 37.1 Body Water Mass 104.8 Basal Metabolic Rate/Score 2,115 Intake Visit Reasons: TV Re-Est SWL BMI 47 *SEE COMMENTS* Allergies No Known Allergies Allergy (Verified 12/25/23 09:02) Medication List - Last Reconciled 12/25/23 by Jermain Cardoso MD No Known Home Meds HPI HPI TV Re-Est SWL BMI 47 *SEE COMMENTS*: Details: Start time: 8.55am, End time: 9.35am ?I spent 35 minutes speaking with the patient on the phone plus an additional 5 minutes reviewing and updating records for a total of 40 minutes HPI Comments Details: Previous weight loss efforts: self diets, [facility] program (stopped due to ankle surgery) Wakes up: 7.30am, Sleeps: 10pm Breakfast: 8.30am (oatmeal with berries, avocado toast) Lunch: 12.30pm (salad and vegan options) Dinner: 7pm (pasta, rice, vegetable, chicken) Snacks: 11am (fruit, carrots), 8.30pm (ice cream, nuts) Exercise: gym membership Fluids: Coffee: none, hot tea: 3/wk (oatmilk), soda: none, juice: none, ETOH: rarely PFSH Medical History (Updated 12/25/23 @ 09:03 by Jermain Cardoso MD) GERD (gastroesophageal reflux disease) Fracture, ankle No known health problems Surgical History (Updated 11/02/23 @ 09:17 by Allie Samaniego CMA) History of ankle surgery Family History Mother No problems noted. Father Heart problem Vertigo Diabetes Hypertension High cholesterol Obesity Brother Lupus Obesity Hypertension Social History Alcohol intake: current Alcohol intake frequency: holidays/special occasions only Patient Tobacco Use Status: Current everyday Tobacco user Cigarettes Per Day: 8 Substance Use Type: Marijuana Physical Exam Vital Signs: BMI result Body Mass Index 48.4 Telehealth Telehealth Telehealth Platform: Telephone Location of provider rendering services: practice address Location of patient: address on file Patient Identification confirmed using: Name, : Yes Telehealth method: voice only Patient verbally consented to treatment: Yes Patient verbally consented to billing insurance company: Yes Patient informed of any privacy concerns related to visit: Yes Minutes spent on Phone/Video with Pt.: 40 Assessment & Plan Assessment & Plan (1) Morbid obesity: Code(s): E66.01 - Morbid (severe) obesity due to excess calories Category: Medical Plan: 1.? Plan for lap sleeve gastrectomy. If diaphragmatic or ventral hernias are present at time of surgery, these will be repaired laparoscopically as well. Risks and complications were discussed in detail including possible conversion to an open procedure, anastomotic leak, bleeding requiring transfusion, small bowel obstruction, , DVT and pulmonary embolism, cardiac, or pulmonary complications, as chcf complications such as anastomotic ulcer, insufficient weight loss and vitamin deficiencies. I emphasized the importance of close follow-up, adherence to instructions and good communication. 2. You will receive a link of our software vandana to generate an individualized nutritional and exercise plan specific for you. Please send me a screenshot of the plans you will generate Meal to include lean meat (beef, fish, pork, turkey, chicken), or slovak yogurt, or egg whites, or beans with a salad with olive oil and fruits (berries, pears, apples, kiwi). Avoid salt, breads, potatoes, rice, pasta, desserts. ?3. If you choose shakes, each shake would be drunk slowly, like coffee in a period of 2 hours. ?4. If you choose bars, cut each bar in 4 pieces and eat each piece in 30min ?to make each bar last 2 hours. ?5. I emphasized the importance of measuring accurately the food portion and measure it when serving the food in plate ?6. The meal portions include a specific number of forks of meat and salad. You always eat the meat portion but you can replace up to half of salad/vegetables portion with rice, potatoes or pasta, or a fruit ?if you like. The less you do it the better weight loss will be. ?7. One full-size fork is what it can be scooped on the fork without falling aside and not what can be bit with the fork. Use regular forks like those you find in a typical restaurant. ?8.? Please send me weight measurements as soon as possible and then once a week. Always include your diet and exercise plan. 9. The best choice would be to purchase a stationary bike, elliptical or treadmill at home that can track calories. Let me know if you do so I can give you an exercise plan. ?10.?It is important of avoiding and for at least 18 months postoperatively and has been discussed at the infosession. ?11. Goal is to lose at least 1.5-2lbs per week ?12. Goal to lose 10% of your weight before surgery, which is about 28lbs. Ultimate weight goal: 254lbs before surgery 13. Please follow the diet plan exactly without any change. If you don't like something about the plan or you feel hungry you need to communicate with me so I can help you revise the plan. You should not change the plan yourself. 14. To be scheduled for EGD due to history of GERD. The possibility of biopsies was discussed. Patient needs to avoid use of NSAIDs and aspirin for 1 week prior to EGD. Risks of perforation and bleeding was discussed with the patient. This will be an outpatient procedure with IV sedation. Orders: Orders Insulin Today E66.01 - Morbid (severe) obesity due to excess calories, G47.33 - Obstructive sleep apnea (adult) (pediatric), K21.9 - Gastro-esophageal reflux disease without esophagitis H Pylori Breath Test Today E66.01 - Morbid (severe) obesity due to excess calories, G47.33 - Obstructive sleep apnea (adult) (pediatric), K21.9 - Gastro- esophageal reflux disease without esophagitis Complete Blood Count Auto Diff Today E66.01 - Morbid (severe) obesity due to excess calories, G47.33 - Obstructive sleep apnea (adult) (pediatric), K21.9 - Gastro-esophageal reflux disease without esophagitis Lipid Panel Today E66.01 - Morbid (severe) obesity due to excess calories, G47.33 - Obstructive sleep apnea (adult) (pediatric), K21.9 - Gastro-esophageal reflux disease without esophagitis Vitamin B12 and Folate Today E66.01 - Morbid (severe) obesity due to excess calories, G47.33 - Obstructive sleep apnea (adult) (pediatric), K21.9 - Gastro-esophageal reflux disease without esophagitis Zinc Today E66.01 - Morbid (severe) obesity due to excess calories, G47.33 - Obstructive sleep apnea (adult) (pediatric), K21.9 - Gastro-esophageal reflux disease without esophagitis C Reactive Protein Today E66.01 - Morbid (severe) obesity due to excess calories, G47.33 - Obstructive sleep apnea (adult) (pediatric), K21.9 - Gastro- esophageal reflux disease without esophagitis Vitamin B1 Today E66.01 - Morbid (severe) obesity due to excess calories, G47.33 - Obstructive sleep apnea (adult) (pediatric), K21.9 - Gastro-esophageal reflux disease without esophagitis Vitamin D 25-OH Total Today E66.01 - Morbid (severe) obesity due to excess calories, G47.33 - Obstructive sleep apnea (adult) (pediatric), K21.9 - Gastro- esophageal reflux disease without esophagitis Hemoglobin A1c Today E66.01 - Morbid (severe) obesity due to excess calories, G47.33 - Obstructive sleep apnea (adult) (pediatric), K21.9 - Gastro-esophageal reflux disease without esophagitis IRON PROFILE Today E66.01 - Morbid (severe) obesity due to excess calories, G47.33 - Obstructive sleep apnea (adult) (pediatric), K21.9 - Gastro-esophageal reflux disease without esophagitis Comprehensive Met. Panel Today E66.01 - Morbid (severe) obesity due to excess calories, G47.33 - Obstructive sleep apnea (adult) (pediatric), K21.9 - Gastro- esophageal reflux disease without esophagitis Vitamin A Today E66.01 - Morbid (severe) obesity due to excess calories, G47.33 - Obstructive sleep apnea (adult) (pediatric), K21.9 - Gastro-esophageal reflux disease without esophagitis TSH reflex Free T4 Today E66.01 - Morbid (severe) obesity due to excess calories, G47.33 - Obstructive sleep apnea (adult) (pediatric), K21.9 - Gastro- esophageal reflux disease without esophagitis Ferritin Today E66.01 - Morbid (severe) obesity due to excess calories, G47.33 - Obstructive sleep apnea (adult) (pediatric), K21.9 - Gastro-esophageal reflux disease without esophagitis US abdomen comp w elastography Today E66.01 - Morbid (severe) obesity due to excess calories, G47.33 - Obstructive sleep apnea (adult) (pediatric), K21.9 - Gastro-esophageal reflux disease without esophagitis XR chest 2V Today E66.01 - Morbid (severe) obesity due to excess calories, G47.33 - Obstructive sleep apnea (adult) (pediatric), K21.9 - Gastro-esophageal reflux disease without esophagitis ECG 12 lead EKG Today E66.01 - Morbid (severe) obesity due to excess calories, G47.33 - Obstructive sleep apnea (adult) (pediatric), K21.9 - Gastro-esophageal reflux disease without esophagitis FL upper GI w air Today E66.01 - Morbid (severe) obesity due to excess calories, G47.33 - Obstructive sleep apnea (adult) (pediatric), K21.9 - Gastro- esophageal reflux disease without esophagitis Referrals Behavioral Health Referral E66.01 - Morbid (severe) obesity due to excess calories, G47.33 - Obstructive sleep apnea (adult) (pediatric), K21.9 - Gastro- esophageal reflux disease without esophagitis Nutrition/Dietitian Referral E66.01 - Morbid (severe) obesity due to excess calories, G47.33 - Obstructive sleep apnea (adult) (pediatric), K21.9 - Gastro- esophageal reflux disease without esophagitis
[2023-12-25 09:13] VITALS: BMI 48.4
== END 2023-12-25 09:36 | disposition home or self-care (01) ==
LOC: HO.HBS 08:04
PROVIDERS: PCP Internal Medicine Medical Oncology; Visit Provider Surgery
DX: E66.01 Morbid (severe) obesity due to excess calories (principal)
CPT/HCPCS: 99203

== ENCOUNTER → 2023-12-25 08:04 | Outpatient (BNVA) | payer OTHER, SELFPAY | PROVIDERS: PCP Internal Medicine Medical Oncology; Visit Provider Surgery ==

== ENCOUNTER 2024-01-06 08:24 | Outpatient (REF) | payer OTHER, SELFPAY ==
--- NOTE | ~2024-01-06 | XR_ITS ---
EXAMINATION: XR chest 2V CLINICAL INFORMATION: Reason for Exam E66.01 - Morbid (severe) obesity due to excess calories COMPARISON: July 2023 TECHNIQUE: XR chest 2V, 2 Views Lungs and [place]: Both lungs are clear. Pleura: Normal. Costophrenic angles are sharp. No pneumothorax. Heart: The heart is normal in size. Mediastinum: The mediastinum is within normal limits.. Bones: Skeletal structures included are normal for patient's age. XR/XR chest 2V IMPRESSION: No radiographic evidence of acute cardiopulmonary disease.
--- NOTE | ~2024-01-06 | US_ITS ---
EXAMINATION: US COMPLETE ABDOMEN WITH LIVER ELASTOGRAPHY CLINICAL INFORMATION: Morbid obesity. COMPARISON: None available. TECHNIQUE: Real-time imaging of the abdominal viscera. Noninvasive ultrasound liver fibrosis assessment is performed using Jes[employer]s Elast[employer] point quantification shear wave elastography (2D-SWE) with a C5-2 MHz transducer. Multiple elastography samples are obtained. FINDINGS: PANCREAS: Normal. The visualized pancreatic head and body are normal in appearance. The remainder of the pancreas is obscured from visualization by the overlying bowel gas. ABDOMINAL AORTA: The proximal, middle, and distal aortic segments are normal in caliber. INFERIOR VENA CAVA: Visualized portions are normal. LIVER: The liver demonstrates normal size, contour and generally increased echogenicity. No focal lesion or intrahepatic biliary duct dilatation. The right lobe measures 15.0 cm in length. The left lobe measures 10.2 cm in length. Portal flow is towards the liver (hepatopetal). Shear wave liver elastography median stiffness is 1.52 m/s (reference: normal median stiffness is 1.3 m/s or less). IQR/median stiffness to assess sampling precision is 0.19 (reference: good quality data set is IQR/median stiffness of 0.15 or less). GALLBLADDER: Normal. The gallbladder is physiologically distended without evidence of stones, sludge, polyps, wall thickening or pericholecystic fluid. COMMON BILE DUCT: Normal in caliber measuring 0.3 cm in diameter. RIGHT KIDNEY: Normal. No hydronephrosis. No renal calculi or focal parenchymal lesions. The kidney measures 9.9 cm in maximum dimension. LEFT KIDNEY: Normal. No hydronephrosis. No renal calculi or focal parenchymal lesions. The kidney measures 11.2 cm in maximum dimension. SPLEEN: Normal. The spleen measures 9.9 cm in maximum dimension. FREE FLUID: None. US/US abdomen comp w elastography IMPRESSION: 1. There is generalized increase in hepatic echotexture, consistent with fatty infiltration or hepatocellular disease. Please correlate clinically. No focal hepatic mass or intrahepatic biliary dilatation is seen. 2. Liver elastography: Although measurements appear to rule out compensated advanced chronic liver disease, there is statistical variability of the sampling which decreases accuracy. REFERENCE: Society of Radiologists in Ultrasound Liver Stiffness Thresholds (2019): LIVER STIFFNESS THRESHOLDS: *Liver Stiffness equal or less than 1.3 m/s: High probability of being normal. *Liver Stiffness less than 1.7 m/s: In the absence of other known clinical signs, rules out compensated advanced chronic liver disease. *Liver Stiffness 1.7-2.1 m/s: Suggestive of compensated advanced chronic liver disease but need further test for confirmation. *Liver Stiffness over 2.1 m/s: Rules in compensated advanced chronic liver disease. *Liver Stiffness over 2.4 m/s: Suggestive of clinically significant portal hypertension. QUALITY OF DATA SET: *IQR/Median value equal or less than 0.15 implies a quality data set. *IQR/Median value over 0.15 implies a poor quality data set. SIGNIFICANT CHANGE FROM PRIOR EXAM: Significant change if liver stiffness measurement is 10% or greater from prior exam. OTHER CONSIDERATIONS: The stage of liver fibrosis may be overestimated in the setting of acute hepatitis, liver inflammation, elevated liver function tests, hepatic vascular congestion, obstructive cholestasis, non-fasting state, and infiltrative diseases such as amyloidosis and lymphoma. In some patients with NAFLD, the liver stiffness thresholds for compensated advanced chronic liver disease may be lower. In causes other than viral hepatitis and NAFLD, liver stiffness thresholds are not well established.
[2024-01-06 09:26] LABS: MANUAL DIFF FLAG NO
--- NOTE | 2024-01-06 09:27 | ECG_ITS ---
Test Reason : e66.01 Blood Pressure : / mmHG Vent. Rate : 070 BPM Atrial Rate : 070 BPM P-R Int : 160 ms QRS Dur : 092 ms QT Int : 406 ms P-R-T Axes : 047 065 020 degrees QTc Int : 438 ms Normal sinus rhythm with sinus arrhythmia Normal ECG When compared with ECG of 28-MAR-2022 10:43, No significant change was found Referred By: Jermain Cardoso Electronically Signed By:MARIA DOLORES GONZALES MD
[2024-01-06 09:50] LABS: Basophils Percent Auto 0.2 % (0-2); Eosinophils Absolute Auto 0.1 X10*3/uL (0.0-0.4); Eosinophils Percent Auto 1.1 % (0-4); Hematocrit 42.6 % (37.0-47.0); Hemoglobin 14.3 g/dl (12.0-16.0); Imm Gran Abs Auto 0.03 X10*3/uL (0.00-0.03); Imm Gran Pct Auto 0.3 % (0.0-0.4); Lymphocytes Absolute Auto 1.8 X10*3/uL (1.2-4.9); Lymphocytes Percent Auto 17.5 % (20-40); Mean Corpuscular HGB Conc 33.6 g/dl (31.0-35.0); Mean Corpuscular Hemoglobin 32.3 pg (27.0-33.0); Mean Corpuscular Volume 96.2 fL (80.0-98.0); Mean Platelet Volume 9.1 fL (9.4-12.3); Monocytes Absolute Auto 0.6 X10*3/uL (0.1-1.2); Neutrophils Absolute Auto 7.7 x10*3/uL (2.0-8.3); Neutrophils Percent Auto 74.9 % (45-73); Platelet Count 293 X10*3/uL (160-400); Red Blood Count 4.43 X10*6/uL (4.20-5.50); Red Cell Distribution Width 13.1 % (11.0-16.0); White Blood Count 10.2 X10*3/uL (4.8-10.8)
[2024-01-06 11:01] LABS: Ferritin 86 ng/mL (10-122); TSH reflex Free T4 1.57 uIU/mL (0.32-4.0); Vitamin D 25-OH Total 26.2 ng/mL (>30)
[2024-01-06 11:12] LABS: Alanine Aminotransferase 17 U/L (0-31); Albumin Level 3.9 g/dL (3.5-5.0); Alkaline Phosphatase 68 U/L (39-117); Anion Gap 13 (12-20); Aspartate Amino Transferase 22 U/L (5-31); Bilirubin Total 0.5 mg/dL (0.0-1.0); Blood Urea Nitrogen 10 mg/dL (9-16); C Reactive Protein 0.35 mg/dL (< or = 0.50); Calcium 8.9 mg/dL (8.4-10.2); Carbon Dioxide 21 mmol/L (22-29); Chloride 109 mmol/L (96-108); Cholesterol 174 mg/dL (<200); Estimated Glomerular Filt Rate > 60; Glucose Random 96 mg/dL (60-115); HDL Cholesterol 37 mg/dL (>40); Iron 100 mcg/dL (30-160); LDL Cholesterol Calculated 109 mg/dL (<100); Percent Iron Saturation 36 % (15-50); Potassium 3.7 mmol/L (3.3-5.1); Sodium 139 mmol/L (135-145); Total Iron Binding Capacity 281 mcg/dL (228-428); Total Protein 6.7 g/dL (6.5-8.0); Triglycerides 142 mg/dL (<150); Unsaturated Iron Binding 181 ug/dL
[2024-01-06 12:29] LABS: Estimated Average Glucose 94 mg/dL; Hemoglobin A1c % 4.9 % (<6.0)
[2024-01-06 14:30] LABS: Folate 5.3 ng/mL (> or = 4.0); Vitamin B12 254 pg/mL (200-900)
[2024-01-06 15:13] LABS: Insulin 13 uU/mL (2-29)
[2024-01-09 16:58] LABS: Zinc 52 mcg/dL (60-130)
[2024-01-11 05:38] LABS: Vitamin B1 10 nmol/L (8-30)
[2024-01-11 09:57] LABS: Vitamin A 49 mcg/dL (38-98)
== END 2024-01-06 08:25 | disposition home or self-care (01) ==
LOC: HO.US 08:24
PROVIDERS: Absent Provider Internal Medicine Medical Oncology; PCP Internal Medicine Medical Oncology; Visit Provider Surgery
DX: E66.01 Morbid (severe) obesity due to excess calories (principal); R53.83 Other fatigue; G47.33 Obstructive sleep apnea (adult) (pediatric); K21.9 Gastro-esophageal reflux disease without esophagitis
CPT/HCPCS: 36415; 71046; 76700; 76981; 80053; 80061; 82306; 82607; 82728; 82746; 83036; 83525; 83540; 84425; 84443; 84590; 84630; 85025; 86140; 93005

== ENCOUNTER → 2024-01-06 09:27 | Outpatient (BNV) | payer OTHER, SELFPAY | PROVIDERS: Absent Provider Internal Medicine Medical Oncology; PCP Internal Medicine Medical Oncology; Visit Provider Internal Medicine Cardiovascular Disease | DX: E66.01 Morbid (severe) obesity due to excess calories (principal) | CPT/HCPCS: 93010 ==

== ENCOUNTER 2024-02-03 11:13 | Outpatient (AMB) | payer MEDICAID, SELFPAY ==
--- NOTE | 2024-02-03 11:12 | A.OFFWM_ITS ---
Intake Intake Visit Reasons: (TV) BH Intake Allergies No Known Allergies Allergy (Verified 12/25/23 09:02) Do you need a note to return to daycare/school/sports/work: No PFSH Medical History (Updated 12/25/23 @ 09:03 by Jermain Cardoso MD) GERD (gastroesophageal reflux disease) Fracture, ankle No known health problems Surgical History (Updated 11/02/23 @ 09:17 by Allie Samaniego CMA) History of ankle surgery Family History Mother No problems noted. Father Heart problem Vertigo Diabetes Hypertension High cholesterol Obesity Brother Lupus Obesity Hypertension Social History Alcohol intake: current Alcohol intake frequency: holidays/special occasions only Patient Tobacco Use Status: Current everyday Tobacco user Cigarettes Per Day: 8 Substance Use Type: Marijuana Behavioral Health Assessment Weight Management Therapy Therapy Notes Details Pt is a 28 years old female, who presents for behavioral health assessment as part of surgical weight-loss program. PT was in our program in 2021 but couldn't continue due to medical issues and need for another surgery. This time, patient reports having the right support, finances and feel in a good place in life to pursue bariatric surgery. PT denied any history of mental health treatment and or past hospitalization/crisis for behavioral health. Denies any safety concerns around SI and/or self-other harm, also there is no history of substance use reported. There is also no evidence for stress/emotional-eating, and scores from BES suggest minimal risk for binge eating behavior. PHQ- scores also showed no active symptoms/concerns with depression. Mental status exam is withing normal limits, suggesting person's functioning is not impaired. At this time patient is cleared from the behavioral health standpoint and no further appointments with this provider are required. Presenting Concerns Referral Source PT sees Dr. Vines Reason for referral Completion of behavioral health assessment as part of process for weight-loss surgery. Precipitating Event PT has done the program before and is aware of the benefits from bariatric surgery. She is thinking about starting a family, be a new/healthy person. She doesn't want to feel limited and dealing with sciatic pain and heartburn the obesity is making things worse. Living Situation Current Living Situation Rent At risk of losing current housing? No Satisfied with current living situation? No Comments PT lives alone with her 2 cats. Food/Weight/Diet Expectations of change The initial goal is to lose 10% of her weight before surgery, which is about 28lbs. Ultimate weight goal: 254lbs before surgery. She would like to be at 175 lbs. History/Relationship with food Growing up she had always to eat everything on her plate to have dessert. She did not have a schedule for meals, and for most of her life, she was eating out. Pt reports her issues are related to portioning, she has not been a breakfast eater her whole life but when did the program in 2021 learned to use shakes. In the last year, she has been making changes on her own, decided to cook more at home and pay attention to the quality of what she eats. Denies ever using food as a reward or when stressed. History/Relationship with weight At age 15 she was 180lbs, but reported that she was overweight as a child as well. In the last 10 years her lowest was 197Lbs and your highest 305Lbs in August/2023. History/Relationship with dieting Patient reported that she was in another weight loss program in 2019 and had lost 20lbs but then was injured and also lost her insurance. Then she did this program in 2021 but was unable to move forward due to knee surgery and not having the best social circumstances and/or support. Currently she is working with a personal care home administrator 3 times per week, she tries to reach 15-25k steps at day and despite she is not using the software to design a meal/exercise plan, she is doing the plan from her time in 2021. Binge Eating Do you frequently eat large amounts of food in short periods of time, not feeling physically hungry? No Do you feel out of control when you eat a large amount of food in a short period of time? No Do you eat large amounts of food rapidly and typically alone? No Night Eating Do you wake up at least once during the night to eat? No If you wake up in the night, do you find that it is necessary to eat something in order to fall back asleep? No Do you have little or no appetite in the morning and feel very hungry in the evening, often overeating between dinner and when you go to bed? Yes Social History Family history and relationship Pt is single and has no kids. The patient was born and raised in [place] by both her parents. She stated that her childhood was great. She has one half-brother who is 15 years older. 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 Developmental history and status None reported. Social support Bestfriends, parents, close family. HAs 2 cousins who did the program and surgery and are successful with their weight loss journey. Community support People at work. Baptism/Spirituality Grew up as Muslim and Baptist but she doesn't practice. Cultural/Ethnic information (iris/[place]). Legal Involvement and History Current or historical involvement with the legal system? none other than lawsuit with college she went to that shutdown. Education Highest grade completed Associate degree Preferred learning style Auditory, Verbal, Written, Learn by doing and Visual Currently enrolled in educational program? No Interested in further educational program? Yes (Interest in pursue a bachelors or get into nursing. 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 No Meaningful activities working out, being outdoor, hiking, kayaking, fishing, read books, family time. Financial Situation Describe current financial situation Occasional struggle Financial assistance? None Service Service? No Mental Health and Addiction Treatment Current/Past substance abuse? No Comments Social alcohol use on special events probably 1-2 times at month, 2-3 beers or drinks. Quit smocking 3 months, was smoking 5 at day. Current/Past addictive behavior concerns? No Psychiatric history PT has been in therapy before but not currently. Not aware of any diagnosis given. Denies ever been in crisis and/or inpatient for MH, also denied any self/other- harm concern. Medical and Physical Health Summary Additional Medical History not covered in history Sciatic pain issues/ flares up once in a while. Sexual History concerns None reported. Physical exam in the last year? Yes Pain Screening Current pain? No Pain in the last few months? No Medications Is the patient compliant with medications? Not applicable Does the patient have Dawson Guardian in place? Not applicable Does the patient use complimentary health approaches? Yes (Have used accupunture in the past. ) Trauma/Abuse History History of trauma? No Questionnaires PHQ-9 Over the last 2 weeks, how often have you been bothered by any of the following problems? 1. Little interest or pleasure in doing things: not at all 2. Feeling down, depressed, or hopeless: not at all 3. Trouble falling or staying asleep, or sleeping too much: several days 4. Feeling tired or having little energy: not at all 5. Poor appetite or overeating: not at all 6. Feeling bad about yourself - or that you are a failure or have let yourself or your family down: not at all 7. Trouble concentrating on things, such as reading the newspaper or watching television: not at all 8. Moving or speaking so slowly that other people could have noticed. Or the opposite - being so fidgety or restless that you have been moving around a lot more than usual: not at all 9. Thoughts that you would be better off or of hurting yourself in some way: not at all Total score: 1 Depression Screening Interpretation: Negative Depression Screening Done: Yes 54910 - PHQ-9 Billing: Yes Source: Developed by Drs. Omi Weston, Anna Rubio, Bran Cortés and colleagues, with an educational lisa from [employer]. Binge Eating Scale Group 1 A. I don't feel self-conscious about my wt. or body size when I'm with others. B. I feel concerned about how I look to others, but it normally does not make me fell disappointed with myself C. I do get self-conscious about my appearance and wt. which makes me feel disappointed in myself. D. I feel very self-conscious about my wt. and frequently I feel intense shame and disgust for myself. I try to avoid social contacts because of my self- consciousness. Response Group 1: B Group 2 A. I don't have any difficulty eating slowly in the proper manner. B. Although I seem to gobble down foods, I don't end up feeling stuffed because of eating to much. C. At times, I tend to eat quickly and then, I feel uncomfortably full afterwards. D. I have the habit of bolting down my food, without really chewing it. When this happens I usually feel uncomfortably stuffed because I've eaten to much. Response Group 2: A Group 3 A. I feel capable to control my eating urges when I want to. B. I feel like I have failed to control my eating more than the average person. C. I feel utterly helpless when it comes to feeling in control of my eating urges. D. Because I feel so helpless about controlling my eating I have become very desperate about trying to get control. Response Group 3: B Group 4 A. I don't have the habit of eating when I'm bored. B. I sometimes eat when I'm bored, but often I'm able to get busy and get my mind off food. C. I have a regular habit of eating when I'm bored, but occasionally, I can use some other activity to get my mind off eating. D. I have a strong habit of eating when I'm bored. Nothing seems to help me breath the habit. Response Group 4: A Group 5 A. I'm usually physically hungry when I eat something. B. Occasionally, I eat something on impulse even though I really am not hungry. C. I have the regular habit of eating foods, that I might not really enjoy, to satisfy a hungry feeling even though physically, I don't need the food. D. Although I'm not physically hungry, I get a hungry feeling in my mouth that only seems to be satisfied when I eat a food, like sandwich, that fills my mouth. Sometimes, when I eat the food to satisfy my mouth hunger, I then spit the food out so I won't gain weight. Response Group 5: B Group 6 A. I don't feel any guilt or self-hate after I overeat. B. After I overeat, occasionally I feel guilt or self-hate. C. Almost all the time I experience strong guilt or self-hate after I overeat. Response Group 6: B Group 7 A. I don't lose total control of my eating when dieting even after periods when I overeat. B. Sometimes when I eat a forbidden food on a diet, I feel like I blew it and eat even more. C. Frequently, I have the habit of saying to myself, I've blown it now, why not go all the way, when I overeat on a diet. When that happens I eat more. D. I have a regular habit of starting a strict diets for myself but I break the diets by going on an eating binge. My life seems to be either a feast or famine. Response Group 7: A Group 8 A. I rarely eat so much food that I feel uncomfortably stuffed afterwards. B. Usually about once a month, I each such a quantity of food, I end up feeling very stuffed. C. I have regular periods during the month when I eat large amounts of food, either at mealtime or at snacks. D. I eat so much food that I regularly feel quite uncomfortable after eating and sometimes a bit nauseous. Response Group 8: B Group 9 A. My level of calorie intake does not go up very high or go down very low on a regular basis. B. Sometimes after I overeat, I will try to reduce my caloric intake to almost nothing to compensate for the excess calories I've eaten. C. I have a regular habit of overeating during the night. It seems that my routine is not to be hungry in the morning but overeat in the evening. D. In my adult years, I have had week-long periods where I practically starve myself. This follows periods when I overeat. It seems I live a life of either feast or famine. Response Group 9: A Group 10 A. I usually am able to stop eating when I want to. I know when enough is enough. B. Every so often, I experience a compulsion to eat which I can't seem to control. C. Frequently, I experience strong urges to eat which I seem unable to control, but at other times I can control my eating urges. D. I feel incapable of controlling urges to eat. I have a fear of not being able to stop eating voluntarily. Response Group 10: A Group 11 A. I don't have any problem stopping eating when I feel full. B. I usually can stop eating when I feel full but occasionally overeat leaving me feeling uncomfortably stuffed. C. I have a problem stopping eating once I start and usually I feel uncomfortably stuffed after I eat a meal. D. Because I have a problem not being able to stop eating when I want, I sometimes have to induce vomiting to relieve my stuffed feeling. Response Group 11: A Group 12 A. I seem to eat just as much when I'm with others, Family social gatherings as when I'm by myself. B. Sometimes, when I'm with other persons, I don't eat as much as I want to eat because I'm self-conscious about my eating. C. Frequently, I eat only a small amount of food when others are present, because I'm very embarrassed about my eating. D. I feel so ashamed about overeating that I pick times to overeat when I know no one will see me. I feel like a closet eater. Response Group 12: A Group 13 A. I eat three meals a day with only an occasional between meal snack. B. I eat 3 meals a day, but I also normally snack between meals. C. When I am snacking heavily, I get in the habit of skipping regular meals. D. There are regular periods when I seem to be continually eating, with no planned meals. Response Group 13: A Group 14 A. I don't think much about trying to control unwanted eating urges. B. At least some of the time, I feel my thoughts are pre-occupied with trying to control my eating urges. C. I feel that frequently I spend much time thinking about how much I ate or about trying not to eat anymore. D. It seems to me that most of my waking hours are pre-occupied by thoughts about eating or not eating. I feel like I'm constantly struggling not to eat. Response Group 14: B Group 15 A. I don't think about food a great deal. B. I have strong craving for food but they last only for brief periods of time. C. I have days when I can't seem to think about anything else but food. D. Most of my days seem to be pre-occupied with thoughts about food. I feel like I live to eat. Response Group 15: A Group 16 A. I usually know whether or not I'm physically hungry. I take the right portion of food to satisfy me. B. Occasionally, I feel uncertain about knowing whether or not I'm physically hungry. A these times it's hard to know how much food I should take to satisfy me. C. Even though I might know how many calories I should eat, I don't have any idea what is a normal amount of food for me. Response Group 16: A Binge Eating Score: 6 (Scores from 03/2022 were 13. ) Score less than 17 Minimal Risk Score between 18-26 Moderate Risk Score between 27-46 High Risk Assessment & Plan Assessment & Plan (1) Adjustment disorder, unspecified: Code(s): F43.20 - Adjustment disorder, unspecified Plan After completing the assessment and comparing scores from Binge eating scale and PHQ9, at this time, this commercial loan underwriter has no concerns about the patient's mental status and/or functioning. The Client is cleared from Bh standpoint and there is no need for follow up. Clinician has advised client about available resources if ever in need to access additional support and to set up a follow up post-op if in need. Telehealth Telehealth Telehealth Platform: [facility] Location of provider rendering services: other Location of patient: other (Work. [employer]) Patient Identification confirmed using: Name, : Yes Telehealth method: video Patient verbally consented to treatment: Yes Patient verbally consented to billing insurance company: Yes Patient informed of any privacy concerns related to visit: No Minutes spent on Phone/Video with Pt.: 60 Coding Level of Care Code New Pt Tele Psy Diag [place] ([id number]) Patient Type New Diagnoses Adjustment disorder, unspecified F43.20 Time Spent (min) 60
== END 2024-02-03 11:58 | disposition home or self-care (01) ==
LOC: HO.HBST 11:13
PROVIDERS: PCP Internal Medicine Medical Oncology; Visit Provider Counselor Mental Health
DX: F43.20 Adjustment disorder, unspecified (principal)
CPT/HCPCS: 90791

== ENCOUNTER → 2024-02-03 11:13 | Outpatient (BNVA) | payer OTHER, SELFPAY | PROVIDERS: PCP Internal Medicine Medical Oncology; Visit Provider Counselor Mental Health ==

== ENCOUNTER 2024-02-17 15:35 | Outpatient (REF) | payer OTHER, SELFPAY | END 2024-02-17 15:36 | disposition home or self-care (01) | LOC: HO.LNP 15:35 | PROVIDERS: Visit Provider Internal Medicine Medical Oncology | DX: L02.91 Cutaneous abscess, unspecified (principal) | CPT/HCPCS: 87070; 87077; 87186; 87205 ==

== ENCOUNTER 2024-06-01 14:03 | Outpatient (REF) | payer OTHER, SELFPAY ==
--- NOTE | ~2024-06-01 | XR_ITS ---
EXAMINATION: XR CHEST CLINICAL INFORMATION: CHRONIC COUGH COMPARISON: Chest x-ray on 01/06/2024 TECHNIQUE: 2 views of the chest were obtained. FINDINGS: No significant abnormality is noted involving the heart, lungs, mediastinum, bony thorax or soft tissues. XR/XR chest 2V IMPRESSION: Unremarkable examination. Electronically signed by: Karly Reno MD 06/01/2024 08:17 PM [facility]
--- OUTSIDE RECORDS SUMMARY | 2024-06-02 02:41 | XMS_ITS ---
Author Organization Omi Lopez III, MD Address [address] [place] [address] Care Team Providers Care Narrow Gauge Operator Name Role Phone Omi Lopez Primary Care Provider Allergies Allergen (clinical drug ingredient) Drug/Non Drug Allergy documented on EMR Reaction Allergy Type Onset Date Status Latex Latex Unknown Allergy Active Dog dander Dog Dander Unknown Allergy Active REASON FOR VISIT Annual Exam Medications Medication SIG (Take, Route, Frequency, Duration) Notes Start Date End Date Status Clobetasol Propionate 0.05 % 1 applicati on Externally Twice a day 03/09/2023 Active valACYclovir HCl 500 MG 1 tablet Orally twice Active Ozempic (0.25 or 0.5 MG/DOSE) 2 MG/3ML as directed Subcutaneous 0.25mg x 4 weeks then 0.5mg SC weekly 01/06/2024 Active Ozempic (0.25 or 0.5 MG/DOSE) 2 MG/3ML as directed Subcutaneous weekly 09/24/2022 Active Hydrocortisone 2.5 % 1 application Exter judd Twice a day to affected area 06/27/2022 Active Cyclobenzaprine HCl 10 MG TAKE ONE TABLE T BY MOUTH THREE TIMES A DAY FOR 10 DAYS DIRECTED Oral Active Triamcinolone Acetonide 0.1 % 1 application Externally Twice a day 03/10/2023 Active Topiramate 25 MG 1 tablet Orally Once a day 10/24/2022 Active Social History Tobacco Use: Social History Observation Description Date Details (start date - stop date) Current Smoker NA - NA Tobacco Use/Smoking Question Answer Notes Patient is a current smoker How often do you smoke cigarettes? every day How many cigarettes a day do you smoke? 5 or les s How soon after you wake up d o you smoke your first cigarette? after 60 minutes Are you interested in quitting? Thinking about q uitting Additional Findings: Tobacco User Light cigarett e smoker ((1-9 cigs/day) Encounters Encounter Location Date Provider Diagnosis Omi Lopez III, MD [address] [place] [address] [place] [address] 05/05/2024 Omi Jessica Furuncle L02.92 Assessments Encounter Date Diagnosis (ICD Code) Assessment Notes Treatment Notes Treatment Clinical Notes 05/05/2024 Furuncle (ICD-10 - L02.92) This was in the skin of the left elbow. The surrounding erythema was 6 cm. Pus was draining. It was cultured. Antibiotic was begun. Plan Of Treatment Medication Medication Name Sig Start Date Stop Date Notes Clobetasol Propionate 0.05 % 1 applicati on Externally Twice a day 03/09/2023 valACYclovir HCl 500 MG 1 tablet Orally twice Ozempic (0.25 or 0.5 MG/DOSE ) 2 MG/3ML as directed Subcutaneous 0.25mg x 4 weeks then 0.5mg SC weekly 01/06/2024 Ozempic (0.25 or 0.5 MG/DOSE ) 2 MG/3ML as directed Subcutaneous weekly 09/24/2022 Hydrocortisone 2.5 % 1 application Exter judd Twice a day to affected area 06/27/2022 Cyclobenzaprine HCl 10 MG TAKE ONE TABLE T BY MOUTH THREE TIMES A DAY FOR 10 DAYS DIRECTED Oral Triamcinolone Acetonide 0.1 % 1 applicat ion Externally Twice a day 03/10/2023 Topiramate 25 MG 1 tablet Orally Once a day 10/24/2022 Next Appt Details Provider Name:Omi Lopez, 07/22/2024 03:00:00 PM, [address] [place] [address] [address], [facility], [address], Progress Notes * MICHAEL FLEMINGDOB: [birth year] (28 yo F)Acc No.[id number]:05/05/2024 Progress Notes Patient:?MICHAEL FLEMING Provider:?Omi Lopez MD :1995???Age:28 Y???Sex:Female D ate:05/05/2024 Address:[address], [id number] Subjective: * Chief Complaints: * ???1. Annual Exam. * HPI: ???COVID-19 Screening:?Questions?Have you had any new onset fever, chills, cough, congestion, sore throat, shortness of breath, muscle aches??No ?Have you been exposed to the virus within the last 10 days??No ?Have you travelled internationally in the last 10 days??No ?Have you been exposed to COVID-19 in the past??No * ROS:?General/Constitutional:?pain?only normal aches and pains.?Chills?denies.?Fatigue?admits.?Fever?denies.?ENT:?Decreased hearing?denies.?Respiratory:?Cough?denies.?Cardiovascular:?Chest pain with exertion?denies.?Dyspnea on exertion?denies.?Shortness of breath?denies.?Gastrointestinal:?Constipation?denies.?Decreased appetite?denies.?Diarrhea?denies.?Heartburn?denies.?Nausea?denies.?Rectal bleeding?denies.?Vomiting?denies.?Hematology:?bruising?denies.?petechiae?denies.?Swollen glands?none have been noted.?Genitourinary:?Frequent urination?denies.?Musculoskeletal:?Muscle aches?denies.?Painful joints?denies.?Sciatica?denies.?Weakness?denies.?Skin:?Itching?denies.?Rash?denies.?Skin lesion(s)?denies.?Neurologic:?Difficulty speaking?denies.?Dizziness?denies.?Headache?denies.?Low back pain?denies.?Psychiatric:?Depressed mood?denies.? * Medical History:?Genital her pes, fracture left fibula February 2018, Morbid obesity, Tobacco dependence, Dermatitis, fingers. * Surgical History:?implanted three-year contraceptive device , closed fracture left fibula 2017, left ankle surgery. 02/08. * Hospitalization/Major Diagno stic Procedure:?Denies Past Hospitalization. * Family History:?Father: jamal blue?Mother: alive.?1 brother(s) - healthy. .? She is not aware of any inherited family cancer syndromes. She is not aware of any family history of mental illness or substance use disorder, or addictions. * Social History:?Tobacco Use:?Tobacco Use/Smoking?Patient is a?current smoker ?How often do you smoke cigarettes??every day ?How many cigarettes a day do you smoke??5 or less ?How soon after you wake up do you smoke your first cigarette??after 60 minutes ?Are you interested in quitting??Thinking about quitting ?Additional Findings: Tobacco User?Light cigarette smoker ((1-9 cigs/day) ???She smokes up packages of cigarettes every day. 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 She is [id number]. 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 She has no children and has not been . Her highest weight was 243. Her lowest as an adult was 165. * Medications:?Taking Triamcin olone Acetonide 0.1 % Cream 1 application Externally Twice a day , Taking Topiramate 25 MG Tablet 1 tablet Orally Once a day , Taking Cyclobenzaprine HCl 10 MG Tablet TAKE ONE TABLET BY MOUTH THREE TIMES A DAY FOR 10 DAYS DIRECTED Oral , Taking Hydrocortisone 2.5 % Cream 1 application Externally Twice a day to affected area , Taking Ozempic (0.25 or 0.5 MG/DOSE) 2 MG/3ML Solution Pen-injector as directed Subcutaneous weekly , Taking Clobetasol Propionate 0.05 % Cream 1 application Externally Twice a day , Taking valACYclovir HCl 500 MG Tablet 1 tablet Orally twice , Taking Ozempic (0.25 or 0.5 MG/DOSE) 2 MG/3ML Solution Pen-injector as directed Subcutaneous 0.25mg x 4 weeks then 0.5mg SC weekly , Medication List reviewed and reconciled with the patient * Allergies:?Latex, Dog Dander . Objective: * Vitals:? * Examination: ???General Examination: ?GENERAL APPEARANCE:?pleasant, well nourished, well developed, in no acute distress, calm and relaxed.?HEAD:?atraumatic, normocephalic.?EYES:?eomi, perrla, anicteric, conjugate.?EARS:?normal.?NOSE:?septum intact.?ORAL CAVITY:?normal, unremarkable.?NECK/THYROID:?no jugular venous distention, no carotid bruit, thyroid normal.?LYMPH NODES:?no enlarged lymph nodes,spleen normal.?SKIN:?no suspicious lesions, anicteric.?HEART:?no clicks, gallops, murmurs, or rubs, regular rhythm, S1, S2 normal, no s3, or vascular bruits.?LUNGS:?clear to auscultation .?BREASTS:??no masses palpable bilaterally.?ABDOMEN:?bowel sounds normal, no ascites, no organomegaly, no mass.?RECTAL EXAM:?not examined.?MUSCULOSKELETAL:?extremities unremarkable, no clubbing, cyanosis or edema.?PERIPHERAL PULSES:?normal.?NEUROLOGIC:?alert and oriented, cranial nerves 2-12 grossly intact, deep tendon reflexes 2+ symmetrical, motor strength normal upper and lower extremities, sensory exam intact.?PSYCH:?alert, oriented.? Assessment: * Assessment: 1.?Kavya - L02.92???Notes :This was in the skin of the left elbow. The surrounding erythema was 6 cm. Pus was draining. It was cultured. Antibiotic was begun.??? Plan: * Treatment: * Images: * The named appointment provid er may or may not be the originator of this progress note, and it is not deemed complete until electronically signed by the appointment provider. Sign off status: Pending * Provider:?Omi Lopez MD Date:?04/22 Generated for Regan salazar/Todd/eTransmitting on:?06/02/2024 02:41 AM EST History and Physical Notes * HPI (History of Present Illness) Category Sub-Category Detail Notes COVID-19 Screening Questions Have you had any new onset fever, chills, cough, congestion, sore throat, shortness of breath, muscle aches?: No Have you been exposed to the virus withi n the last 10 days?: No Have you travelled internationally in e last 10 days?: No Have you been exposed to COVID-19 in the past?: No Examination Category Sub-Category Detail Notes General Examination GENERAL APPEARANCE: pleasant , well nourished, well developed, in no acute distress, calm and relaxed HEAD: atraumatic, normocep halic EYES: eomi, perrla, anicte derrick, conjugate EARS: normal NOSE: septum intact NECK/THYROID: no jugular venous di stention, no carotid bruit, thyroid normal HEART: no clicks, gallops, murmurs, or rubs, regular rhythm, S1, S2 normal, no s3, or vascular bruits LUNGS: clear to auscultatio n ABDOMEN: bowel sounds normal, no ascites, no organomegaly, no mass NEUROLOGIC: alert and oriented, cranial nerves 2-12 grossly intact, deep tendon reflexes 2+ symmetrical, motor strength normal upper and lower extremities, sensory exam intact SKIN: no suspicious lesion s, anicteric PERIPHERAL PULSES: normal BREASTS: no masses palpable b ilaterally MUSCULOSKELETAL: extremities unremark able, no clubbing, cyanosis or edema LYMPH NODES: no enlarged lymph no stella,spleen normal RECTAL EXAM: not examined PSYCH: alert, oriented ORAL CAVITY: normal, unremarkable
--- OUTSIDE RECORDS SUMMARY | 2024-06-02 02:41 | XMS_ITS ---
Author Organization Omi Lopez III, MD Address [address] [place] [address] Care Team Providers Care Enrollment Consultant Name Role Phone Omi Lopez Primary Care Provider Allergies Allergen (clinical drug ingredient) Drug/Non Drug Allergy documented on EMR Reaction Allergy Type Onset Date Status Latex Latex Unknown Allergy Active Dog dander Dog Dander Unknown Allergy Active REASON FOR VISIT Telehealth Medications Medication SIG (Take, Route, Frequency, Duration) Notes Start Date End Date Status Ciclopirox Olamine 0.77 % 1 application Externally Twice a day for 14 days 06/01/2024 11/16/2024 Active Topiramate 25 MG 1 tablet Orally Once a day 10/24/2022 Active Triamcinolone Acetonide 0.1 % 1 application Externally Twice a day 03/10/2023 Active Ciclopirox Olamine 0.77 % 1 application Externally Twice a day for 14 days 06/01/2024 Active Ozempic (0.25 or 0.5 MG/DOSE) 2 MG/3ML as directed Subcutaneous 0.25mg x 4 weeks then 0.5mg SC weekly 01/06/2024 Active Hydrocortisone 2.5 % 1 application Externally Twice a day to affected area 06/27/2022 Active Cyclobenzaprine HCl 10 MG TAKE ONE TABLE T BY MOUTH THREE TIMES A DAY FOR 10 DAYS DIRECTED Oral Active Clobetasol Propionate 0.05 % 1 application Externally Twice a day 03/09/2023 Active Ozempic (0.25 or 0.5 MG/DOSE) 2 MG/3ML as directed Subcutaneous weekly 09/24/2022 Active valACYclovir HCl 500 MG 1 tablet Orally twice Active Social History Tobacco Use: Social History [...] Date Provider Diagnosis Omi Lopez III, MD [address] [place] [address] [place] [address] 06/01/2024 Omi Lopez Furuncle L02.92 and Chronic cough R05.3 Assessments Encounter Date Diagnosis (ICD Code) Assessment Notes Treatment Notes Treatment Clinical Notes 06/01/2024 Furuncle (ICD-10 - L02.92) This was in the skin of the left elbow. The surrounding erythema was 6 cm. Pus was draining. It was cultured. Antibiotic was begun. 06/01/2024 Chronic cough (ICD-10 - R05.3) Plan Of Treatment Medication Medication Name Sig Start Date Stop Date Notes Ciclopirox Olamine 0.77 % 1 application Externally Twice a day for 14 days 06/01/2024 11/16/2024 Topiramate 25 MG 1 tablet Orally Once a day 10/24/2022 Triamcinolone Acetonide 0.1 % 1 applicat ion Externally Twice a day 03/10/2023 Ciclopirox Olamine 0.77 % 1 application Externally Twice a day for 14 days 06/01/2024 Ozempic (0.25 or 0.5 MG/DOSE ) 2 MG/3ML as directed Subcutaneous 0.25mg x 4 weeks then 0.5mg SC weekly 01/06/2024 Hydrocortisone 2.5 % 1 application Exter judd Twice a day to affected area 06/27/2022 Cyclobenzaprine HCl 10 MG TAKE ONE TABLE T BY MOUTH THREE TIMES A DAY FOR 10 DAYS DIRECTED Oral Clobetasol Propionate 0.05 % 1 applicati on Externally Twice a day 03/09/2023 Ozempic (0.25 or 0.5 MG/DOSE ) 2 MG/3ML as directed Subcutaneous weekly 09/24/2022 valACYclovir HCl 500 MG 1 tablet Orally twice Pending Test Test Name Order Date XR CHEST 2 VIEW PA & LAT 06/01/2024 Next Appt Details Provider Name:Omi Lopez, 07/22/2024 03:00:00 PM, [address], [place], [address], Progress Notes * MICHAEL FLEMINGDOB: [birth year] (28 yo F)Acc No.[id number]:06/01/2024 Patient:?MICHAEL FLEMING Provider:?Omi Lopze MD :1995???Age:28 Y???Sex:Female D ate:06/01/2024 Address:[address] [place] [address] [address], [id number] Subjective: * Chief Complaints: * ???1. Telehealth. * HPI: ???:?Telehealth?Location of provider rendering services:?{...} [address] [facility] [address] ?Location of patient:?address listed in demographics for today's visit ?Patient identification confirmed using:?Name, ?Telehealth method:?Telephone only. Patient not visible to care provider. ?Consent:?Patient verbally consented to treatment, Patient verbally consented to billing insurance company, Patient informed of any privacy concerns related to method of visit ?Total time spent with patient (mins)?15 * ROS:?General/Constitutional:?pain?only normal aches and pains.?Chills?denies.?Fatigue?admits.?Fever?denies.?ENT:?Decreased hearing?denies.?Respiratory:?Cough?denies.?Cardiovascular:?Chest [...] Procedure:?Denies Past Hospitalization. * Family History:?Father: jamal solitario.?Mother: alive.?1 brother(s) - healthy. .? She is [...] of cigarettes every day. 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 She is [id number]. 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 She has [...] Allergies:?Latex, Dog Dander . Objective: * Vitals:? Assessment: * Assessment: 1.?Furuncle - L02.92???Notes :This was in the skin of the left elbow. The surrounding erythema was 6 cm. Pus was draining. It was cultured. Antibiotic was begun.???2.?Chronic cough - R05.3??? Plan: * Treatment: 2.?Chronic cough?Imaging: XR CHEST 2 VIEW PA & LAT * Images: * The named appointment provid er may or may not be the originator of this progress note, and it is not deemed complete until electronically signed by the appointment provider. Sign off status: Pending * Provider:?Omi Lopez MD Date:?05/22 Generated for Regan salazar/Todd/Yovani on:?06/02/2024 02:41 AM EST History and Physical Notes * HPI (History of Present Illness) Category Sub-Category Detail Notes Telehealth Location of [facility] rendering services:: {...} [address] [place], [place] [id number] Location of patient:: address listed in demographics for today's visit Patient identification confirmed using:: Name, Telehealth method:: Telephone only. Jory ent not visible to care provider. Consent:: Patient verbally c onsented to treatment, Patient verbally consented to billing insurance company, Patient informed of any privacy concerns related to method of visit Total time spent with patient (mins): 15
--- OUTSIDE RECORDS SUMMARY | 2024-06-02 02:41 | XMS_ITS ---
Author Organization Omi Lopez III, MD Address [address] [place] [address] Care Team Providers Care Nursing Manager Name Role Phone Omi Lopez Primary Care Provider REASON FOR VISIT UTI Rx Request Medications Medication SIG (Take, Route, Frequency, Duration) Notes Start Date End Date Status Sulfamethoxazole-Trimetho prim 800-160 MG 1 tablet Orally twice a day for 14 days 05/02/2024 05/16/2024 Active Encounters Encounter Location Date Provider Diagnosis Omi Lopez III, MD [address] [place] [address] [place] [address] 05/02/2024 Omi Lopez Plan Of Treatment Medication Medication Name Sig Start Date Stop Date Notes Sulfamethoxazole-Trimethopri m 800-160 MG 1 tablet Orally twice a day for 14 days 05/02/2024 05/16/2024 Next Appt Details Provider Name:Omi Lopez, 07/22/2024 03:00:00 PM, [address] [place] [address] [address], [place], [address], Progress Notes * MICHAEL FLEMINGDOB: [birth year] (28 yo F)Acc No.[id number]:05/02/2024 Patient:?MICHAEL FLEMING :1995???Age:28 Y???Sex:Female Address:[address], [place], [address] * Refills? Start Sulfamethoxazole-Trimethoprim Tablet, 800-160 MG, Orally, 28 Tablet, 1 tablet, twice a day, 14 days, Refills=0 * true * Date:? Generated for Regan salazar/Todd/Yovani on:?06/02/2024 02:41 AM EST
--- OUTSIDE RECORDS SUMMARY | 2024-06-02 02:42 | XMS_ITS | Patient Health Record ---
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 Manager: [facility] XR chest 2V Reviewed date:02/18/2024 12:29:27 PM Interpretation: Performing Lab: Notes/Report: [address] [address] XRay Report Signed Patient: Michael Fleming MR#: [id number] : 1995 Acct:[id number] Age/Sex: 28 / F ADM Date: 01/06/24 Loc: . Attending Dr: Jermain Cardoso MD Ordering Physician: Jermain Cardoso MD Date of Service: 01/06/24 Procedure(s): XR chest 2V Accession Number(s): [id number] cc: Omi Lopez MD; Jermain Cardoso MD EXAMINATION: XR chest 2V CLINICAL INFORMATION: Reason for Exam E66.01 - Morbid (severe) obesity due to excess calories COMPARISON: July 2023 TECHNIQUE: XR chest 2V, 2 Views Lungs and [place]: Both lungs are clear. Pleura: Normal. Costophrenic angles are sharp. No pneumothorax. Heart: The heart is normal in size. Mediastinum: The mediastinum is within normal limits.. Bones: Skeletal structures included are normal for patient's age. XR/XR chest 2V IMPRESSION: No radiographic evidence of acute cardiopulmonary disease. Dictated By: Too Jacob MD Signed By: <Electronically signed by Too Jacob MD in OV> 01/28/24 1537 DD/ 0947 TD/TT: Shift Manager: [address] [address] XRay Report Signed Patient: Michael Fleming MR#: [id number] : 1995 Acct:[id number] Age/Sex: 28 / F ADM Date: 01/06/24 Loc: HO.US Attending Dr: Christine Cardoso MD Ordering Physician: Jermain Cardoso MD Date of Service: 01/06/24 Procedure(s): XR mazin st 2V Accession Number(s): [id number] cc: Omi Lopez MD; Jermain Cardoso MD EXAMINATION: XR ches t 2V CLINICAL INFORMATION: Reason for Exam E66. 01 - Morbid (severe) obesity due to excess calories COMPARISON: July 2023 TECHNIQUE: XR chest 2V, 2 Views Lungs and [place]: Both lungs are clear. Pleura: Normal. Costophrenic angles are sharp. No pneumothorax. Heart: The heart is normal in size. Mediastinum: The mediastinum is within normal limits.. Bones: Skeletal structures included are normal for patient's age. XR/XR chest 2V IMPRESSION: No radiographic evidence of acute cardiopulmonary disease. Dictated By: Too Jacob MD Signed By: <Electronically signed by Too Jacob MD in OV> 01/28/24 1537 DD/ 0947 TD/TT: Shift Manager: FLOR Gram stain Reviewed date:02/19/2024 01:29:08 PM Interpretation: Performing Lab:[facility], [address] [place] [id number] Notes/Report: Gram stain Gram stain results: Gram stain 3+ polys Gram stain 1+ epithelial cells Gram stain 1+ Gram-positive cocci XR chest 2V (Not yet reviewe d by provider) Interpretation: Performing Lab: Notes/Report: [address] [place] [address] XRay Report Signed Patient: Michael Fleming MR#: [id number] : 1995 Acct:[id number] Age/Sex: 28 / F ADM Date: 06/01/24 Loc: HO.XRAY Attending Dr: Omi Lopez MD Ordering Physician: Omi Lopez MD Date of Service: 06/01/24 Procedure(s): XR chest 2V Accession Number(s): [id number] cc: Omi Lopez MD EXAMINATION: XR CHEST CLINICAL INFORMATION: CHRONIC COUGH COMPARISON: Chest x-ray on 01/06/2024 TECHNIQUE: 2 views of the chest were obtained. FINDINGS: No significant abnormality is noted involving the heart, lungs, mediastinum, bony thorax or soft tissues. XR/XR chest 2V IMPRESSION: Unremarkable examination. Electronically signed by: Karly Reno MD 06/01/2024 08:17 PM EST RP Dictated By: Karly Reno MD Signed By: <Electronically signed by Karly Reno MD in OV> 06/01/242016 DD/ 1408 TD/TT: 06/01/24 142 Shift Manager: ELKE [address] [address] XRay Report Signed Patient: Michael Fleming MR#: [id number] : 1995 Acct:[id number] Age/Sex: 28 / F ADM Date: 06/01/24 Loc: HO.ANTONIOAY Attending Dr: Omi Lopez MD Ordering Physician: Omi Lopez MD Date of Service: 06/01/24 Procedure(s): XR mazin st 2V Accession Number(s): [id number] cc: Omi Lopez MD EXAMINATION: XR CHEST CLINICAL INFORMATION: CHRONIC COUGH COMPARISON: Chest x-ray on 01/06/2024 TECHNIQUE: 2 views of the chest were obtained. FINDINGS: No significant abnormality is noted involving the heart, lungs, mediastinum, bony thorax or soft tissues. XR/XR chest 2V IMPRESSION: Unremarkable examination. Electronically kimberly d by: Karly Reno MD 06/01/2024 08:17 PM EST RP Dictated By: Karly Reno MD Signed By: <Electronically signed by Karly Reno MD in OV> 06/01/242016 DD/ 1408 TD/TT: 06/01/24 142 Shift Manager: ELKE Reason For Referral No Information Medications Medication SIG (Take, Route, Frequency, Duration) Notes Start Date End Date Status Ciclopirox Olamine 0.77 % 1 application Externally Twice a day for 14 days 06/01/2024 11/16/2024 Active Topiramate 25 MG 1 tablet Orally Once a day 10/24/2022 Active Triamcinolone Acetonide 0.1 % 1 application Externally Twice a day 03/10/2023 Active Hydrocortisone 2.5 % 1 application Externally Twice a day to affected area 06/27/2022 Active Cyclobenzaprine HCl 10 MG TAKE ONE TABLE T BY MOUTH THREE TIMES A DAY FOR 10 DAYS DIRECTED Oral Active Clobetasol Propionate 0.05 % 1 application Externally Twice a day 03/09/2023 Active Ozempic (0.25 or 0.5 MG/DOSE) 2 MG/3ML as directed Subcutaneous weekly 09/24/2022 Active Ciclopirox Olamine 0.77 % 1 application Externally Twice a day for 14 days 06/01/2024 Active Ozempic (0.25 or 0.5 MG/DOSE) 2 MG/3ML as directed Subcutaneous 0.25mg x 4 weeks then 0.5mg SC weekly 01/06/2024 Active valACYclovir HCl 500 MG 1 tablet [...] User Light cigarett e smoker ((1-9 cigs/day) Alcohol Screen Question Answer Notes Did you have a drink containing alcohol in the p ast year? No Points 0 Interpretation Negative Problems Problem Type SNOMED Code ICD Code Onset Dates Problem Status W/U Status Risk Notes Problem 90531896519232 Morbid (severe) obesity due to excess calories (E66.01) Active confirmed She has lost 10 more pounds so far in the weight loss program and with medication. Bariatric surgery as planned about 6 months from now. I found no contraindication to surgery today. Problem 43195159 Sciatica, unspecified side (M54.30) Active confirmed She has pain d own the right leg into her knee. It has begun to improve significantly and conservative therapy was continued for another week. Problem 80293080 Dermatitis (L30.9) Active confirmed She does severe blistering dermatitis over her hands, which resembles a contact dermatitis but she has had this for several months. She was given triamcinolone. If it persists. She will be referred to dermatology. Problem 00195167 Tobacco dependence (F17.200) Active confirmed She continues t o smoke cigarettes. I have made her aware of the smoking cessation programs at [facility] as well as smoke [place]. I strongly recommended cessation. I have prescribed Chantix for her. Problem 361048163 Body mass index (BMI) of 40.0-44.9 in adult (Z68.41) Active confirmed We have discuss ed nutrition at length and I have offered to refer her to programs for weight loss. She is going to consider this. I have recommended Weight Watchers. I recommended that she pursue's smoking cessation. First, however. Problem Hemorrhoids (78627255) Hemorrhoids (K64.9) Active confirmed Problem 19715342 Amenorrhea (N91.2) Active confirmed The endocrine workup appears to be normal. Problem 17380201 Mastalgia (N64.4) Active confirmed The pain has diminished and is resolving. She will be observed. Problem 867298612 Acute midline low back pain with right-sided sciatica (M54.41) Active confirmed The back pain h as begun to improve steadily. She will continue to use acetaminophen and ibuprofen, heat and rest. Problem 04983059 Other closed fracture of proximal end of left fibula, sequela (S82.832S) Active confirmed The fracture wilburn s resolved. She ambulates without difficulty. No treatment will be necessary at this time. Problem 90983876 Genital herpes simplex, unspecified site (A60.00) Active confirmed The valacyclov ir has been refilled. No flareups of recently occurred. Vital Signs Heart Rate 69 /min 02/17/2024 Temperature 97.6 degrees Fahrenheit 02/17/2024 Blood pressure diastolic 80 mm Hg 02/17/2024 Height 64.5 in 02/17/2024 Blood pressure systolic 139 mm Hg 02/17/2024 Weight 256 lbs 02/17/2024 BMI 43.26 kg/m2 02/17/2024 Encounters Encounter Location Date Provider Diagnosis Omi Lopez III, MD [address] [place] [address] [place] [id number] 06/01/2024 Omi Lopez Furuncle L02.92 and Chronic cough R05.3 Omi Lopez III, MD [address] [place] [address] [place] [address] 06/05/2023 Omi Lopez Pain in left hand M79.642 ; Morbid (severe) obesity due to excess calories E66.01 ; Tobacco dependence F17.200 ; Cervical radiculopathy M54.12 ; Other closed fracture of proximal end of left fibula, sequela S82.832S and Amenorrhea N91.2 Omi Lopez III, MD [address] [place] [address] [place] [address] 01/05/2024 Omi Lopez Morbid (severe) obes ity due to excess calories E66.01 and Tobacco dependence F17.200 Omi Lopez III, MD [address] [place] [address] [place] [address] 02/17/2024 Omi Lopez Furuncle L02.92 ; Morbid (severe) obesity due to excess calories E66.01 and Tobacco dependence F17.200 Omi Lopez III, MD [address] [facility] [place] [address] 06/04/2023 Omi Lopez III, MD [address] [place] [address] [place] [id number] 07/27/2023 Omi Lopez Morbid (severe) obes ity due to excess calories E66.01 and Cough, unspecified R05.9 Omi Lopez III, MD [address] [place] [address] [place] [id number] 07/29/2023 Omi Lopez III, MD [address] [place] [address] [place] [id number] 07/29/2023 Omi Lopez III, MD [address] [place] [address] [place] [id number] 08/31/2023 Omi Lopez III, MD [address] [place] [address] [place] [id number] 08/31/2023 Omi Lopez III, MD [address] [place] [address] [place] [id number] 09/29/2023 Omi Lopez III, MD [address] [place] [address] [place] [address] 09/29/2023 Omi Lopez III, MD [address] [place] [address] [place] [id number] 10/28/2023 Omi Lopez III, MD [address] [place] [address] [place] [id number] 01/11/2024 Omi Lopez III, MD [address] [place] [address] [place] [id number] 02/19/2024 Omi Lopez III, MD [address] [place] [address] [place] [address] 05/02/2024 Omi Lopez III, MD [address] [place] [address] [place] [address] 02/19/2024 Omi Lopez Assessments Encounter Date Diagnosis (ICD Code) Assessment Notes Treatment Notes Treatment Clinical Notes 06/01/2024 Furuncle (ICD-10 - L02.92) This was in the skin of the left elbow. The surrounding erythema was 6 cm. Pus was draining. It was cultured. Antibiotic was begun. 06/05/2023 Morbid (severe) obesity due to excess calories (ICD-10 - E66.01) She has lost 7 pounds through diet and exercise. She is determined to continue losing weight. She was referred back to the weight loss clinic. Her insurance will not cover semaglutide. She will be given a trial of topiramate. 06/05/2023 Pain in left hand (ICD-10 - M79.642) X-rays of both hands have been requested. She will use ibuprofen and avoid exertional use of the left hand until an etiology has been determined. 01/05/2024 Morbid (severe) obesity due to excess calories (ICD-10 - E66.01) She has lost 33 pounds so far in the weight loss program and with medication. Bariatric surgery as planned about 6 months from now. I found no contraindication to surgery today. 01/05/2024 Tobacco dependence (ICD-10 - F17.200) She continues to smoke cigarettes. I have made her aware of the smoking cessation programs at [facility] as well as smoke [place]. I strongly recommended cessation. I have prescribed Chantix for her. 02/17/2024 Morbid (severe) obesity due to excess calories (ICD-10 - E66.01) She has lost 10 more pounds so far in the weight loss program and with medication. Bariatric surgery as planned about 6 months from now. I found no contraindication to surgery today. 02/17/2024 Furuncle (ICD-10 - L02.92) This was in the skin of the left elbow. The surrounding erythema was 6 cm. Pus was draining. It was cultured. Antibiotic was begun. 06/01/2024 Chronic cough (ICD-10 - R05.3) 06/05/2023 Tobacco dependence (ICD-10 - F17.200) She continues to smoke cigarettes. I have made her aware of the smoking cessation programs at [facility] as well as smoke [place]. I strongly recommended cessation. I have prescribed Chantix for her. 02/17/2024 Tobacco dependence (ICD-10 - F17.200) She continues to smoke cigarettes. I have made her aware of the smoking cessation programs at [facility] as well as smoke [place]. I strongly recommended cessation. I have prescribed Chantix for her. 07/27/2023 Morbid (severe) obesity due to excess calories (ICD-10 - E66.01) 06/05/2023 Cervical radiculopathy (ICD-10 - M54.12) Her neck is now free of pain. 07/27/2023 Cough, unspecified (ICD-10 - R05.9) 06/05/2023 Other closed fracture of proximal end of left fibula, sequela (ICD-10 - S82.832S) The fracture has resolved. She ambulates without difficulty. No treatment will be necessary at this time. 06/05/2023 Amenorrhea (ICD-10 - N91.2) The endocrine workup appears to be normal. Plan Of Treatment Pending Test Test Name Order Date PROFILE, FASTING (COMPREHENSIVE METABOLI C) 12/03/2020 PROFILE, FASTING (COMPREHENSIVE METABOLI C) 01/05/2024 PROFILE, FASTING (COMPREHENSIVE METABOLI C) 08/12/2017 PROFILE, RANDOM (COMPREHENSIVE METABOLIC ) 07/27/2023 HEMOGLOBIN A1C (GLYCOHEMOGLOBIN) 021 LIPID PANEL 12/03/2020 LIPID PANEL 08/12/2017 IRON + IBC (FE) 01/05/2024 CBC w DIFF 12/03/2020 CBC w DIFF 08/12/2017 XR ANKLE LT 08/25/2022 XR CHEST 2 VIEW PA & LAT 07/27/2023 XR CHEST 2 VIEW PA & LAT 06/01/2024 XR FOOT LT 01/28/2022 US BREAST RIGHT 05/22/2022 CBC WITH AUTO DIFF 07/27/2023 CBC WITH AUTO DIFF 01/05/2024 XR chest 2V 06/01/2024 Next Appt Details Provider Name:Omi Lopez, 07/22/2024 03:00:00 PM, [address] [place] [address] , [facility] [place], [place], [address], Insurance Providers Payer Name Payer Address Payer Phone Subscriber Number Group Number Insured Name Patient Relationship to Insured Coverage Start Date Coverage End Date [employer] [address] [address] [place] [address] [id number] MICHAEL STEIN Self - patient is the insured MEDICAID [address] [place], [place] [id number] MICHAEL STEIN Self - patient is the insured Medical (General) History Medical History History ICD Code genital herpes fracture left fibula February 2018 Morbid obesity tobacco dependence dermatitis, fingers Surgical History Surgery Date(Month/Year) left ankle surgery. 02/08 closed fracture left fibula 2017 implanted three-year contraceptive devic e
== END 2024-06-01 14:04 | disposition home or self-care (01) ==
LOC: HO.XRAY 14:03
PROVIDERS: PCP Internal Medicine Medical Oncology; Visit Provider Internal Medicine Medical Oncology
DX: R05.3 Chronic cough (principal)
CPT/HCPCS: 71046

== ENCOUNTER 2024-10-18 11:14 | Outpatient (REF) | payer OTHER, SELFPAY ==
--- NOTE | ~2024-10-18 | MM_ITS ---
EXAMINATION: MM DIAGNOSTIC DIGITAL BREAST TOMOSYNTHESIS, BILATERAL Right limited ultrasound. CLINICAL INFORMATION: Right breast palpable lump for 3 months. COMPARISON: Mammography: Comparison is made with relevant prior exams. TECHNIQUE: Digital breast mammography with tomosynthesis is performed in both the craniocaudal and mediolateral oblique views along with computer-aided detection (CAD). FINDINGS: There are scattered areas of fibroglandular density (ACR BI-RADS breast composition Category b). BB marker in the upper inner right breast breast anterior depth without underlying abnormality denoting the site of palpable lump and pain. There are no significant masses, abnormal calcifications, or other abnormalities. Targeted color Doppler ultrasound in the area the patient's palpable lump and pain upper inner breast from 1-5 o'clock demonstrates normal fibronodular breast tissue. There is no sonographic abnormal findings. Results are provided to the patient at time of visit by the technologist. MM/MM tomosynthesis diagnostic BI IMPRESSION: No mammographic or sonographic abnormality to account for the patient's right palpable lump and pain. Recommend clinical evaluation and follow-up. ASSESSMENT: BI-RADS BI-RADS 1 - Negative RECOMMENDATION: 1 year F/U This patient's information was entered into a reminder system with a target due date for their next mammogram. Electronically signed by: Lulu Goode DO 10/18/2024 02:21 PM EDT
--- OUTSIDE RECORDS SUMMARY | 2024-10-18 13:13 | XMS_ITS | Encounter Summary ---
Author Organization [facility] Address [address] [place] [address] Phone Care Team Providers Care Transport Engineer Name Role Phone Mandi Campoverde MD Primary Care Provider [phone] Encounter Details Date Type Department Care Team (Late st Contact Info) Description 10/29/2009 Documentation [facility] [place] [address] [place] [address] Family Medicine, Physician [address] [place], [place] [phone] Social History Tobacco Use Types Packs/Day Years Used Date Smoking Tobacco: Never Assessed Comments Unknown Sex and Gender Information Value Date Recorded Sex Assigned at Not on file Legal Sex Female 4:46 PM EDT Gender Identity Not on file Sexual Orientation Not on file documented as of this encounter Plan of Treatment Not on file documented as of this encounter Visit Diagnoses Not on filedocumented in this encounter Care Teams Transport Engineer Relationship Specialty Start Date End Date Mandi Campoverde MD [address] [facility] [place] [address] PCP - General 01/30/17 09/23/22 documented as of this encounter
--- OUTSIDE RECORDS SUMMARY | 2024-10-18 13:13 | XMS_ITS | Encounter Summary ---
Author Organization [facility] Address [address] [place] [address] Phone Care Team Providers Care Portfolio Administrator Name Role Phone Mandi Campoverde MD Primary Care Provider Encounter Details Date Type Department Care Team (Late st Contact Info) Description 02/05/2017 Conversion Encounter [facility] [place] [address] [place] [address] Social History Tobacco Use Types Packs/Day Years Used Date Smoking Tobacco: Unknown Comments:Unknown if ever smo ked Comments Unknown Sex and Gender Information Value Date Recorded Sex Assigned at Not on file Legal Sex Female 4:46 PM EDT Gender Identity Not on file Sexual Orientation Not on file documented as of this encounter Plan of Treatment Not on file documented as of this encounter Visit Diagnoses Not on filedocumented in this encounter Care Teams Portfolio Administrator Relationship Specialty Start Date End Date Mandi Campoverde MD [address] [place] [address] PCP - General 01/30/17 09/23/22 documented as of this encounter
--- OUTSIDE RECORDS SUMMARY | 2024-10-18 13:13 | XMS_ITS | Encounter Summary ---
Author Organization [facility] Address [address] [place] [address] Phone Care Team Providers Care Field Engineer Name Role Phone Mandi Campoverde MD Primary Care Provider [phone] Encounter Details Date Type Department Care Team (Late st Contact Info) Description 11/14/2011 Documentation [facility] [place] Family Medicine [address] [place] [address] Family Medicine, Physician [address] [place], [place] [phone] Social History Tobacco Use Types Packs/Day Years [...] on filedocumented in this encounter Care Teams Field Engineer Relationship Specialty Start Date End Date Mandi Campoverde MD [address] [facility] [place] [address] PCP - General 01/30/17 09/23/22 documented as of this encounter
--- OUTSIDE RECORDS SUMMARY | 2024-10-18 13:13 | XMS_ITS | Encounter Summary ---
Author Organization [facility] Address [address] [place] [address] Phone Care Team Providers Care Monkey Breeder Name Role Phone Mandi Campoverde MD Primary Care Provider Encounter Details Date Type Department Care Team (Late st Contact Info) Description 10/29/2009 Documentation [facility] [place] Family Medicine [address] [place] [address] Family Medicine, Physician [address] [place], [place] [phone] Social History Tobacco Use Types Packs/Day Years [...] on filedocumented in this encounter Care Teams Monkey Breeder Relationship Specialty Start Date End Date Mandi Campoverde MD [address] [facility] [place] [address] PCP - General 01/30/17 09/23/22 documented as of this encounter
--- OUTSIDE RECORDS SUMMARY | 2024-10-18 13:13 | XMS_ITS | Clinical Summary ---
Author Organization [facility] Address [address] [place] [address] Phone Care Team Providers Care Etl Architect Name Role Phone Unavailable Primary Care Provider Unavailabl e Immunizations Immunization Administration Dates Next Due DTP 01/01/1996, 5,1994,08/19 DTaP 5 07/04/1999 H1N1 05/29/2009 HPV, Quadrivalent 08/01/2011,03/13/2011,10/27/19 10 Hep A, Adult 06/25/2015 Hep B, ped/adol 1994,1994,1994 Hib (PRP-T) 09/21/1995, 5,1994,08/19 Influenza, intranasal, trivalent 03/13/2011 MMR 08/02/1998,06/23/1995 Meningococcal Conj (Menactra) MCV4P 11/23/2006 OPV 07/04/1999, 5,1994,08/19 Td (adult) (Tenivac), 5 Lf t etanus toxoid, PF, adsorbed 12/13/2013 Tdap 11/23/2006 Varicella 11/26/2007,01/01/1996 Family History Relation Name Status Comments Father Father: Obesity , Heart disease Maternal Grandfather Materna l grandfather: , COPD Maternal Grandmother Materna l grandmother: COPD, Mother Alive Mother: Migrain es Other Family history of Obesity Paternal Grandfather Paterna l grandfather: Heart disease Paternal Grandmother Paterna l grandmother: , COPD Social History Tobacco Use Types Packs/Day Years Used Date Smoking Tobacco: Unknown Comments:Unknown if ever smo ked Comments Unknown Sex and Gender Information Value Date Recorded Sex Assigned at Not on file Legal Sex Female 4:46 PM EDT Gender Identity Not on file Sexual Orientation Not on file Last Filed Vital Signs Vital Sign Reading Time Taken Comments Blood Pressure 129/69 06/25/2015 12:00 AM EST Pulse 87 06/25/2015 12:00 AM EST Temperature 36.8 ??C (98.2 ??F) 06/25/2015 12:[address] Respiratory Rate - - Oxygen Saturation - - Inhaled Oxygen Concentration - - Weight 106 kg (234 lb) 06/25/2015 12:00 AM EST Height 165.1 cm (5' 5 ) 06/25/2015 12:00 AM EST Body Mass Index 38.94 06/25/2015 12:00 AM EST Plan of Treatment Health Maintenance Due Date Last Done Comments DTaP,Tdap,and Td Vaccines (8 - Td or Tdap) 12/14/2023 12/13/2013, 11/23/2006, 07/04/1999, Additional history exists Influenza Vaccines (#1) 2024 03/13/2011 COVID-19 Vaccine ( season) 2024 Hepatitis B Vaccines Completed 1994, 1994, 1994 HIB Vaccines Completed 09/21/1995, 12/20, 1994, Additional history exists MMR Vaccines Completed 08/02/1998, 06/23/1995 IPV Vaccines Completed 07/04/1999, 12/20, 1994, Additional history exists Meningococcal Vaccine Aged Out 11/23/2006 No sakshi jocelyn eligible based on patient's age to complete this topic Varicella Vaccines Completed 11/26/2007, 01/01/1996 HPV Vaccines Completed 08/01/2011, 02/21, 10/26/2009 Hepatitis A Vaccines Aged Out 06/25/2015 No long er eligible based on patient's age to complete this topic Men B Vaccine Aged Out No longer elig ible based on patient's age to complete this topic Pneumococcal Vaccine Aged Out No long er eligible based on patient's age to complete this topic Procedures * Due to [place] state law, this organization might not be sharing sensitive test results. Procedure Name Priority Date/Time Associated Diagnosis Comments CHLAMYDIA AND GONORRHEA, AMPLIFIED Routine 10/25/2012 7:18 AM EDT from Last 3 Months or Most Recently Relevant to Health Maintenance Results * Due to [place] state law, this organization might not be sharing sensitive test results. * Chlamydia and Gonorrhoea, Amplified (10/25/2012 7:18 AM EDT) URINE CHLAMYDIA AMP PROBE NEGATIVE [facility] Comment: NO CHLAMYDIA TRACHOMATIS RNA DETECTED IN THIS PATIENT'S SAMPLE. ? (REFERENCE RANGE/NORMAL VALUE: NOT DETECTED) URINE GC AMP PROBE NEGATIVE [facility] Comment: NO NEISSERIA GONORRHOEAE RNA DETECTED IN THIS PATIENT'S SAMPLE. ? (REFERENCE RANGE/NORMAL VALUE: NOT DETECTED) ? NOTE: THIS TEST USES EMERGENCY MEDICAL TECHNICIAN/DRIVER-MEDIATED AMPLIFICATION METHOD TO DETECT rRNA FROM C.TRACHOMATIS AND N.GONORRHOEAE. A NEGATIVE RESULT DOES NOT PRECLUDE INFECTION. THE APTIMA COMBO 2 ASSAY IS NOT INTENDED FOR THE EVALUATION OF SUSPECTED SEXUAL ABUSE OR FOR OTHER MEDICO LEGAL INDICATIONS. THERAPEUTIC FAILURE OR SUCCESS CANNOT BE DETERMINED WITH THE APTIMA COMBO 2 ASSAY SINCE NUCLEIC ACID MAY PERSIST FOLLOWING APPROPRIATE ANTIMICROBIAL THERAPY. IN THE CASE OF A NEGATIVE URINE RESULT, TESTING OF AN ENDOCERVICAL (FEMALE) OR URETHRAL (MALE) SPECIMEN IS RECOMMENDED IF THERE IS HIGH CLINICAL SUSPICION OF INFECTION. 10/25/2012 7:18 AM EDT Narrative [facility] - 10/25/2012 7:18 AM EDT URINE CHLAMYDIA GC AMP PROBE us Mandi Campoverde MD LAB MICROBIOLOGY - GENERAL O RDERABLES Final Result [facility] [address] [place] [address], [place] from Last 3 Months or Most Recently Relevant to Health Maintenance
--- OUTSIDE RECORDS SUMMARY | 2024-10-18 13:13 | XMS_ITS | Encounter Summary ---
Author Organization [facility] Address [address] [place] [address] Phone Care Team Providers Care Fence Setter Name Role Phone Mandi Campoverde MD Primary Care Provider Encounter Details Date Type Department Care Team (Late st Contact Info) Description 10/29/2009 Documentation [facility] Family Medicine [address] [place] [address] Family Medicine, Physician [address] [place], [place] [phone] Social History Tobacco Use Types Packs/Day Years [...] on filedocumented in this encounter Care Teams Fence Setter Relationship Specialty Start Date End Date Mandi Campoverde MD [address] [facility] [place] [address] PCP - General 01/30/17 09/23/22 documented as of this encounter
--- OUTSIDE RECORDS SUMMARY | 2024-10-18 13:13 | XMS_ITS | Encounter Summary ---
Author Organization [facility] Address [address] [place] [address] Phone Care Team Providers Care Sales Support Coordinator Name Role Phone Mandi Campoverde MD Primary Care Provider [phone] Encounter Details Date Type Department Care Team (Late st Contact Info) Description 09/21/2013 Documentation [facility] [place] [address] [place] [address] Family Medicine, Physician [address] [place], [place] [phone] Social History Tobacco Use Types Packs/Day Years [...] on filedocumented in this encounter Care Teams Sales Support Coordinator Relationship Specialty Start Date End Date Mandi Campoverde MD 150 [facility] [place] [address] PCP - General 01/30/17 09/23/22 documented as of this encounter
--- OUTSIDE RECORDS SUMMARY | 2024-10-18 13:13 | XMS_ITS | Clinical Summary ---
Author Organization [facility] ity Address [address] [place] [address] Care Team Providers Care Ehs Engineer Name Role Phone Unavailable Primary Care Provider Unavailabl e Social History Tobacco Use Types Packs/Day Years Used Date Smoking Tobacco: Never Smokeless Tobacco: Never Comments Unknown Sex and Gender Information Value Date Recorded Sex Assigned at Not on file Legal Sex Female 6:36 PM EST Gender Identity Not on file Sexual Orientation Not on file Obstetrics History Plan of Treatment Health Maintenance Due Date Last Done Comments DTaP,Tdap,and Td Vaccines (1 - Tdap) 2013 Hepatitis B Vaccines (1 of 3 - 19+ 3-dose series) 2013 Cervical Cancer Screening: P ap Smear 2015 Depression Screening 05/24/2022 HIV Screening 05/24/2022 Hepatitis C Screening 05/24/2022 Social Influencers of Health Screening 05/24/2022 COVID-19 Vaccine ( - 2023-2 5 season) 2024 Influenza Vaccine (Season Ended) 2025 HIB Vaccines Aged Out No longer eligi ble based on patient's age to complete this topic HPV Vaccines Aged Out No longer eligi ble based on patient's age to complete this topic Hepatitis A Vaccines Aged Out No long er eligible based on patient's age to complete this topic IPV Vaccines Aged Out No longer eligi ble based on patient's age to complete this topic MMR Vaccines Aged Out No longer eligi ble based on patient's age to complete this topic Meningococcal ACWY Vaccine Aged Out N o longer eligible based on patient's age to complete this topic Meningococcal B Vaccine Aged Out No l onger eligible based on patient's age to complete this topic Pneumococcal Vaccine: Pediat rics (0 to 5 Years) and At-Risk Patients (6 to 64 Years) Aged Out No longer eligible b ased on patient's age to complete this topic RSV Immunization Patients Un michelle 20 months Aged Out No longer eligible b ased on patient's age to complete this topic Varicella Vaccines Aged Out No longer eligible based on patient's age to complete this topic
--- OUTSIDE RECORDS SUMMARY | 2024-10-18 13:13 | XMS_ITS | Encounter Summary ---
Author Organization [facility] Address [address] [place] [address] Phone Care Team Providers Care Bounty Hunter Name Role Phone Mandi Campoverde MD Primary Care Provider [phone] Encounter Details Date Type Department Care Team (Late st Contact Info) Description 10/05/2014 Documentation [facility] Family Medicine [address] [place] [address] Family Medicine, Physician [address] [place], [place] [phone] Social History Tobacco Use Types Packs/Day Years [...] on filedocumented in this encounter Care Teams Bounty Hunter Relationship Specialty Start Date End Date Mandi Campoverde MD 150 [facility] [place] [address] PCP - General 01/30/17 09/23/22 documented as of this encounter
== END 2024-10-18 11:15 | disposition home or self-care (01) ==
LOC: HO.MAMMO 11:14
PROVIDERS: PCP Internal Medicine Medical Oncology; Visit Provider Internal Medicine Medical Oncology
DX: N64.4 Mastodynia (principal)
CPT/HCPCS: 76642; 77062; 77066

== ENCOUNTER → 2024-10-18 11:30 | Outpatient (BNV) | payer OTHER, SELFPAY | PROVIDERS: PCP Internal Medicine Medical Oncology; Visit Provider Internal Medicine | DX: N63.12 Unspecified lump in the right breast, upper inner quadrant (principal) | CPT/HCPCS: 76642; 77062; 77066 ==

== ENCOUNTER 2025-03-08 06:02 | Emergency (ER) | payer OTHER, SELFPAY ==
--- NOTE | ~2025-03-08 | XR_ITS ---
CLINICAL HISTORY: sciatica 3 views lumbar spine Comparison: CR/IL/SR - XR LUMBAR SPINE 2-3 VIEWS - 07/24/23 11:18 EST Findings: For the purpose of this dictation, the 12th ribs are diminutive with 5 lumbar vertebral bodies. There is mild loss of anterior vertebral body height at T10, similar to prior exam. Remaining vertebral body heights are well-maintained. Mild disc space narrowing is seen at L5/S1. No acute fracture or subluxation is identified. Alignment is within normal limits. IMPRESSION: 1. No acute osseous abnormality is identified. 2. Mild disc space narrowing at L5/S1. This document has been electronically signed by: Naheed Wang on 03/08/2025 07:29:18
[2025-03-08 06:04] VITALS: BP 132/65; PULSE 77; RESP 16; TEMP 36; O2SAT 100; BMI 25.1
[2025-03-08 06:19] VITALS: BP 132/65; PULSE 77; RESP 16; TEMP 36; O2SAT 100
--- OUTSIDE RECORDS SUMMARY | 2025-03-08 06:42 | XMS_ITS | Encounter Summary ---
Author Organization [facility] Address [address] [place] [address] Phone Care Team Providers Care Labor Law Professor Name Role Phone Mandi Campoverde MD Primary Care Provider Encounter Details Date Type Department Care Team (Late st Contact Info) Description 10/29/2009 Documentation [facility] [place] [address] [place] [address] Family Medicine, Physician [address] [place], [place] [phone] Social History Tobacco Use Types Packs/Day Years [...] on filedocumented in this encounter Care Teams Labor Law Professor Relationship Specialty Start Date End Date Mandi Campoverde MD 150 [facility] [place] [address] PCP - General 01/30/17 09/23/22 documented as of this encounter
--- OUTSIDE RECORDS SUMMARY | 2025-03-08 06:42 | XMS_ITS | Encounter Summary ---
Author Organization [facility] Address [address] [place] [address] Phone Care Team Providers Care Certified Medical Coder Name Role Phone Mandi Campoverde MD Primary Care Provider [phone] Encounter Details Date Type Department Care Team (Late st Contact Info) Description 10/29/2009 Documentation [facility] [place] [address] [place] [address] Family Medicine, Physician [address] [place], [place] [phone] Social History Tobacco Use Types Packs/Day Years [...] on filedocumented in this encounter Care Teams Certified Medical Coder Relationship Specialty Start Date End Date Mandi Campoverde MD 150 [facility] [place] [address] PCP - General 01/30/17 09/23/22 documented as of this encounter
--- OUTSIDE RECORDS SUMMARY | 2025-03-08 06:42 | XMS_ITS | Encounter Summary ---
Author Organization [facility] Address [address] [place] [address] Phone Care Team Providers Care Laser Printing Operator Name Role Phone Mandi Campoverde MD Primary Care Provider Encounter Details Date Type Department Care Team (Late st Contact Info) Description 02/05/2017 Conversion Encounter [facility] [place] [address] [place] [address] Social History Tobacco Use Types Packs/Day Years [...] on filedocumented in this encounter Care Teams Laser Printing Operator Relationship Specialty Start Date End Date Mandi Campoverde MD [address] [place] [address] PCP - General 01/30/17 09/23/22 documented as of this encounter
--- OUTSIDE RECORDS SUMMARY | 2025-03-08 06:42 | XMS_ITS | Encounter Summary ---
Author Organization [facility] Address [address] [place] [address] Phone Care Team Providers Care Helmet Coverer Name Role Phone Mandi Campoverde MD Primary Care Provider Encounter Details Date Type Department Care Team (Late st Contact Info) Description 11/14/2011 Documentation [facility] [place] Family Medicine [address] [place] [address] Family Medicine, Physician [address] [place], [place] [phone] Social History Tobacco Use Types Packs/Day Years [...] on filedocumented in this encounter Care Teams Helmet Coverer Relationship Specialty Start Date End Date Mandi Campoverde MD 150 [facility] [place] [address] PCP - General 01/30/17 09/23/22 documented as of this encounter
--- OUTSIDE RECORDS SUMMARY | 2025-03-08 06:42 | XMS_ITS | Clinical Summary ---
Author Organization [facility] Address [address] [place] [address] Phone Care Team Providers Care Associate Professor Of Art History Name Role Phone Unavailable Primary Care Provider [...] 87 06/25/2015 12:00 AM EST Temperature 36.8 C (98.2 F) 06/25/2015 12:00 AM EST Respiratory Rate - - Oxygen Saturation - [...] 07/04/1999, Additional history exists Influenza Vaccines (#1) 2025 03/13/2011 COVID-19 Vaccine ( season) 2025 Hepatitis B Vaccines Completed 1994, 1994, 1994 [...] complete this topic Procedures * Due to [place] state law, this organization might not be sharing sensitive test results. Procedure Name Priority Date/Time Associated Diagnosis Comments CHLAMYDIA AND GONORRHEA, AMPLIFIED Routine 10/25/2012 7:18 AM EDT from Last 3 Months or Most Recently Relevant to Health Maintenance Results * Due to [place] state law, this organization might not be sharing sensitive test results. * Chlamydia and Gonorrhoea, Amplified (10/25/2012 7:18 AM EDT) URINE CHLAMYDIA AMP PROBE NEGATIVE [facility] Comment: NO CHLAMYDIA TRACHOMATIS RNA DETECTED IN THIS PATIENT'S SAMPLE. (REFERENCE RANGE/NORMAL VALUE: NOT DETECTED) URINE GC AMP PROBE NEGATIVE [facility] Comment: NO NEISSERIA GONORRHOEAE RNA DETECTED IN THIS PATIENT'S SAMPLE. (REFERENCE RANGE/NORMAL VALUE: NOT DETECTED) NOTE: THIS TEST USES IS MANAGER-MEDIATED AMPLIFICATION METHOD TO DETECT rRNA FROM C.TRACHOMATIS [...] OF INFECTION. 10/25/2012 7:18 AM EDT Narrative [facility] - 10/25/2012 7:18 AM EDT URINE CHLAMYDIA GC AMP PROBE us Mandi Campoverde MD LAB MICROBIOLOGY - GENERAL O RDERABLES Final Result [facility] [address] [place] [address], [place] from Last 3 Months or Most Recently Relevant to Health Maintenance
--- OUTSIDE RECORDS SUMMARY | 2025-03-08 06:42 | XMS_ITS | Clinical Summary ---
Author Organization [facility] ity Address [address] [place] [address] Care Team Providers Care Sewer Repairer Name Role Phone Unavailable Primary Care Provider [...] Cervical Cancer Screening: P ap Smear 2015 HIV Screening 05/24/2022 Hepatitis C Screening 05/24/2022 Social Influencers of Health Screening 05/24/2022 Depression Screening 06/22/2024 COVID-19 Vaccine ( - 2023-2 5 season) 2025 Influenza Vaccine (#1) 2025 HIB Vaccines Aged Out No longer [...] 5 Years) and At-Risk Patients (6 to 49 Years) Aged Out No longer eligible b ased on patient's age to complete this topic RSV Immunization Patients Un michelle 20 months Aged Out No longer eligible b ased on patient's age to complete this topic Varicella Vaccines Aged Out No longer eligible based on patient's age to complete this topic
--- OUTSIDE RECORDS SUMMARY | 2025-03-08 06:42 | XMS_ITS | Encounter Summary ---
Author Organization [facility] Address [address] [place] [address] Phone Care Team Providers Care Electronics Engineering Manager Name Role Phone Mandi Campoverde MD Primary Care Provider [phone] Encounter Details Date Type Department Care Team (Late st Contact Info) Description 10/05/2014 Documentation [facility] [place] Family Medicine [address] [place] [address] Family Medicine, Physician [address] [place], [place] [phone] Social History Tobacco Use Types Packs/Day Years [...] on filedocumented in this encounter Care Teams Electronics Engineering Manager Relationship Specialty Start Date End Date Mandi Campoverde MD 150 [facility] [place] [address] PCP - General 01/30/17 09/23/22 documented as of this encounter
--- OUTSIDE RECORDS SUMMARY | 2025-03-08 06:42 | XMS_ITS | Encounter Summary ---
Author Organization [facility] Address [address] [place] [address] Phone Care Team Providers Care Housing Installer Name Role Phone Mandi Campoverde MD Primary Care Provider Encounter Details Date Type Department Care Team (Late st Contact Info) Description 09/21/2013 Documentation [facility] [place] Family Medicine [address] [place] [address] Family Medicine, Physician [address] [place], [place] [phone] Social History Tobacco Use Types Packs/Day Years [...] on filedocumented in this encounter Care Teams Housing Installer Relationship Specialty Start Date End Date Mandi Campoverde MD [address] [facility] [place] [address] PCP - General 01/30/17 09/23/22 documented as of this encounter
--- OUTSIDE RECORDS SUMMARY | 2025-03-08 06:44 | XMS_ITS | Encounter Summary ---
Author Organization [facility] Address [address] [place] [address] Phone Care Team Providers Care Clothing Manager Name Role Phone Mandi Campoverde MD Primary Care Provider [phone] Encounter Details Date Type Department Care Team (Late st Contact Info) Description 10/29/2009 Documentation [facility] [place] Family Medicine [address] [place] [address] Family Medicine, Physician [address] [place], [place] [phone] Social History Tobacco Use Types Packs/Day Years [...] on filedocumented in this encounter Care Teams Clothing Manager Relationship Specialty Start Date End Date Mandi Campoverde MD 150 [facility] [place] [address] PCP - General 01/30/17 09/23/22 documented as of this encounter
--- NOTE | 2025-03-08 06:48 | ED_ITS ---
HPI - Back Pain/Injury General Chief Complaint: Back Pain/Injury Stated Complaint: sciatic pain Time Seen by Provider: 03/08/25 06:47 Source: patient Mode of arrival: wheelchair Limitations: no limitations History of Present Illness ED Provider: HPI Narrative: 29-year-old woman presenting with low back pain, left-sided radiating down her left leg behind her knee, this is a recurrent issue states this is her 5th time in 5 years, usually gets worse around her menses, no IV drug use no recent back surgeries or injections, no fevers chills, no urinary retention or loss of bowel or bladder function, no numbness in the groin reported. Related Data Previous Rx's ?Medication ?Instructions ?Recorded cholecalciferol (vitamin D3) 125 125 mcg PO DAILY #90 caps 07/25/24 mcg (5,000 unit) capsule mecobalamin (vitamin B12) 1,000 1,000 mcg sublingual D AILY #90 tabs 07/25/24 mcg disintegrating tablet,sublingual zinc gluconate 10 mg lozenges 10 mg PO DAILY #100 ea 0 07/25/24 diazepam 2 mg tablet (Valium) 2 mg PO TID PRN spasms 2 days #6 03/08/25 tabs lidocaine 4 % topical patch 1 patch topical DAILY PRN pain 7 03/08/25 (Aspercreme (lidocaine)) days #10 ea methylprednisolone 4 mg tablets in 4 mg PO DAILY #21 e a 03/08/25 a dose pack (Medrol (Eliot)) Allergies Allergy/AdvReac Type Severity Reaction Status Date / Time No Known Allergies Allergy Verified 03/08/25 06:08 Review of Systems Constitutional: Constitutional: Reports as per HPI [facility] Past Medical History Medical History (Updated 03/08/25 @ 07:10 by Jose Dias DO) GERD (gastroesophageal reflux disease) Fracture, ankle No known health problems Surgical History (Updated 11/02/23 @ 09:17 by Allie Samaniego CMA) History of ankle surgery Family History Family History Mother No problems noted. Father Heart problem Vertigo Diabetes Hypertension High cholesterol Obesity Brother Lupus Obesity Hypertension Social History Social History Alcohol intake: current Alcohol intake frequency: holidays/special occasions only Patient Tobacco Use Status: Current everyday Tobacco user Cigarettes Per Day: 8 Smoked in Last 30 Days: Yes Use of substances other than those prescribed or required for medical reasons: Yes Substance Use Type: Marijuana Advance Directives: No Advance Directives Information Provided: Yes Physical Exam Vital Signs: Vital Signs: Last Vital Signs Temp 96.8 F 03/08/25 06:19 Pulse 77 03/08/25 06:19 Resp 16 03/08/25 06:19 BP 132/65 03/08/25 06:19 Pulse Ox 100 03/08/25 06:19 O2 Del Method Room Air 03/08/25 06:19 BMI result Body Mass Index 25.1 Const: Other: * Gen: ?Overall well-appearing patient * Resp: ?No wheezing rales rhonchi no stridor moving air well * Abd: ?Bowel sounds are present, no tenderness no rebound no rigidity * MSK: FROM, strength 5/5 all extremities, no sensory deficits L2-S1, tender over the lower lumbar/sacral area with some pain along SI without rashes, compartments are soft distal pulses intact * Skin: Warm, dry, intact, * Neuro: ?Alert and oriented x3, moving upper and lower extremities symmetrically, no obvious facial asymmetry noted Medical Decision Making Medical Decision Making MDM Narrative: 7:07 AM 03/08/2025 (Dr. Jose Dias): Patient evaluated with lower back pain, no red flags as per HPI to suspect a surgical emergencies as noted below, x-ray without fractures or destructive lesions, loss of lordosis consistent with spasm, anticipating discharge home with outpatient follow up did not feel further imaging such as CT is indicated Differential Diagnosis Differential Diagnoses: The differential diagnosis associated with the presentation includes (Diskitis, osteomyelitis, spinal epidural abscess, cauda equina, musculoskeletal pain) Admission/Observation Consideration of admission/observation: Escalation of care including admission/observation considered Independent Interpretation I performed an independent interpretation of an: Plain X-Ray (Loss of lumbar lordosis, no destructive lesions, good joint spaces) Tests considered The following testing was considered but not selected: CBC, CMP, CT lumbar sacral spine Prescription Management I considered prescription management with: Pain Medication Discharge Plan Discharge Clinical Impression: Low back pain radiating to left leg Patient Disposition: Home, Self-Care Additional Instructions: Lidocaine patches, you can also look into capsaicin ointment patches they very good for spasms Use ibuprofen 400 mg every 6 hours around the clock with Tylenol 975 mg for additional pain control, Valium use as an antispasmodic, do not mix with marijuana alcohol or operate any motor vehicles while under the influence of this medication that can make you drowsy Follow up with the PCP for re-evaluation you may need additional studies such as outpatient MRI, physical therapy, your x-ray today revealed normal bones with findings consistent with a spasm Steroids will help with the inflammation take as prescribed Prescriptions: New lidocaine [Aspercreme (lidocaine)] 4 % adhesive patch,medicated 1 patch topical DAILY PRN (Reason: pain) 7 Days Qty: 10 0RF diazepam [Valium] 2 mg tablet 2 mg PO TID PRN (Reason: spasms) 2 Days Qty: 6 0RF methylprednisolone [Medrol (Eliot)] 4 mg tablets,dose pack 4 mg PO DAILY Qty: 21 0RF Rx Instructions: Day 1: 24 mg on day 1 administered as 8 mg before breakfast, 4 mg after lunch, 4 mg after supper, and 8 mg at bedtime or 24 mg as a single dose or divided into 2 or 3 doses upon initiation. Day 2: 20 mg on day 2 administered as 4 mg before breakfast, 4 mg after lunch, 4 mg after supper, and 8 mg at bedtime. Day 3: 16 mg on day 3 administered as 4 mg before breakfast, 4 mg after lunch, 4 mg after supper, and 4 mg at bedtime. Day 4: 12 mg on day 4 administered as 4 mg before breakfast, 4 mg after lunch, and 4 mg at bedtime. Day 5: 8 mg on day 5 administered as 4 mg before breakfast and 4 mg at bedtime. Day 6: 4 mg on day 6 administered as 4 mg before breakfast. No Action cholecalciferol (vitamin D3) 125 mcg (5,000 unit) capsule 125 mcg PO DAILY Qty: 90 0RF mecobalamin (vitamin B12) 1,000 mcg tablet,disintegrating 1,000 mcg sublingual DAILY Qty: 90 0RF Rx Instructions: place tablet under tongue and allow to dissolve for at least30 secs before swallowing zinc gluconate 10 mg lozenge 10 mg PO DAILY Qty: 100 0RF Print Language: Kiswahili
[2025-03-08] MEDS: Lidocaine 4 % Patch ADH..PATCH 1 PATCH TRANSDERMA (07:17)
[2025-03-08] MEDS: oxyCODONE HCl Immed Release 5 MG TABLET 10 MG PO (07:17)
[2025-03-08 07:28] VITALS: BP 132/65; PULSE 77; RESP 16; TEMP 36; O2SAT 100
== END 2025-03-08 07:30 | disposition home or self-care (01) ==
PROVIDERS: Emergency Provider Emergency Medicine; PCP Internal Medicine Medical Oncology
DX: M54.42 Lumbago with sciatica, left side (principal); M79.605 Pain in left leg; F17.210 Nicotine dependence, cigarettes, uncomplicated
CPT/HCPCS: 72100; 96372; 99284; J1885

== ENCOUNTER → 2025-03-08 06:25 | Outpatient (BNV) | payer OTHER, SELFPAY | PROVIDERS: Emergency Provider Emergency Medicine; PCP Internal Medicine Medical Oncology; Visit Provider Radiology Vascular & Interventional Radiology | DX: M51.370 Other intervertebral disc degeneration, lumbosacral region with discogenic back pain only (principal) | CPT/HCPCS: 72100 ==

== ENCOUNTER 2025-04-18 12:18 | Outpatient (REF) | payer OTHER, SELFPAY ==
[2025-04-18 12:49] LABS: Carbon Monoxide POC 2.9 %
--- OUTSIDE RECORDS SUMMARY | 2025-04-18 15:35 | XMS_ITS | Encounter Summary ---
Author Organization [facility] Address [address] [place] [address] Phone Care Team Providers Care Catalogue Librarian Name Role Phone Mandi Campoverde MD Primary Care Provider Encounter Details Date Type Department Care Team (Late st Contact Info) Description 02/05/2017 Conversion Encounter [facility] [address] [place] [address] Social History Tobacco Use Types Packs/Day Years [...] on filedocumented in this encounter Care Teams Catalogue Librarian Relationship Specialty Start Date End Date Mandi Campoverde MD [address] [place] [address] PCP - General 01/30/17 09/23/22 documented as of this encounter
--- OUTSIDE RECORDS SUMMARY | 2025-04-18 15:35 | XMS_ITS | Clinical Summary ---
Author Organization [facility] Address [address] [place] [address] Phone Care Team Providers Care Nightclub Manager Name Role Phone Unavailable Primary Care Provider [...] complete this topic Procedures * Due to [place] state law, this organization might not be sharing sensitive test results. Procedure Name Priority Date/Time Associated Diagnosis Comments CHLAMYDIA AND GONORRHEA, AMPLIFIED Routine 10/25/2012 7:18 AM EDT from Last 3 Months or Most Recently Relevant to Health Maintenance Results * Due to [place] state law, this organization might not be [...] VALUE: NOT DETECTED) NOTE: THIS TEST USES CYCLE ANALYST-MEDIATED AMPLIFICATION METHOD TO DETECT rRNA FROM C.TRACHOMATIS [...] RDERABLES Final Result [facility] [address] [place] [id number], [place] from Last 3 Months or Most Recently Relevant to Health Maintenance
--- OUTSIDE RECORDS SUMMARY | 2025-04-18 15:35 | XMS_ITS | Encounter Summary ---
Author Organization [facility] Address [address] [place] [phone] Phone Care Team Providers Care Title 1 Tutor Name Role Phone Mandi Campoverde MD Primary Care Provider Encounter Details Date Type Department Care Team (Late st Contact Info) Description 10/29/2009 Documentation [facility] [place] [address] [place] [address] Family Medicine, Physician [address] [place], [place] [phone] Social History Tobacco Use Types Packs/Day Years [...] on filedocumented in this encounter Care Teams Title 1 Tutor Relationship Specialty Start Date End Date Mandi Campoverde MD [address] [facility] [place] [address] PCP - General 01/30/17 09/23/22 documented as of this encounter
--- OUTSIDE RECORDS SUMMARY | 2025-04-18 15:35 | XMS_ITS | Encounter Summary ---
Author Organization [facility] Address [address] [place] [address] Phone Care Team Providers Care Bottle Washer Machine Name Role Phone Mandi Campoverde MD Primary Care Provider Encounter Details Date Type Department Care Team (Late st Contact Info) Description 11/14/2011 Documentation [facility] [place] Family Medicine [address] [place] [address] Family Medicine, Physician [address] [place], [place] [phone] Social History Tobacco Use Types Packs/Day Years [...] on filedocumented in this encounter Care Teams Bottle Washer Machine Relationship Specialty Start Date End Date Mandi Campoverde MD [address] [facility] [place] [address] PCP - General 01/30/17 09/23/22 documented as of this encounter
--- OUTSIDE RECORDS SUMMARY | 2025-04-18 15:35 | XMS_ITS | Encounter Summary ---
Author Organization [facility] Address [address] [place] [phone] Phone Care Team Providers Care Partition Assembly Machine Operator Name Role Phone Mandi Campoverde MD Primary Care Provider Encounter Details Date Type Department Care Team (Late st Contact Info) Description 09/21/2013 Documentation [facility] [place] [address] [place] [address] Family Medicine, Physician [address] [place], [place] [phone] Social History Tobacco Use Types Packs/Day Years [...] on filedocumented in this encounter Care Teams Partition Assembly Machine Operator Relationship Specialty Start Date End Date Mandi Campoverde MD [address] [facility] [place] [address] PCP - General 01/30/17 09/23/22 documented as of this encounter
--- OUTSIDE RECORDS SUMMARY | 2025-04-18 15:35 | XMS_ITS | Encounter Summary ---
Author Organization [facility] Address [address] [place] [address] Phone Care Team Providers Care Cisco Network Engineer Name Role Phone Mandi Campoverde MD Primary Care Provider [phone] Encounter Details Date Type Department Care Team (Late st Contact Info) Description 10/05/2014 Documentation [facility] [place] Family Medicine [address] [place] [address] Family Medicine, Physician [address] [place], [place] [phone] Social History Tobacco Use Types Packs/Day Years [...] on filedocumented in this encounter Care Teams Cisco Network Engineer Relationship Specialty Start Date End Date Mandi Campoverde MD [address] [facility] [place] [address] PCP - General 01/30/17 09/23/22 documented as of this encounter
--- OUTSIDE RECORDS SUMMARY | 2025-04-18 15:35 | XMS_ITS | Encounter Summary ---
Author Organization [facility] Address [address] [place] [address] Phone Care Team Providers Care Director Stars Name Role Phone Mandi Campoverde MD Primary Care Provider Encounter Details Date Type Department Care Team (Late st Contact Info) Description 10/29/2009 Documentation [facility] [place] Family Medicine [address] [place] [address] Family Medicine, Physician [address] [place], [place] [phone] Social History Tobacco Use Types Packs/Day Years [...] on filedocumented in this encounter Care Teams Director Stars Relationship Specialty Start Date End Date Mandi Campoverde MD [address] [facility] [place] [address] PCP - General 01/30/17 09/23/22 documented as of this encounter
--- OUTSIDE RECORDS SUMMARY | 2025-04-18 15:35 | XMS_ITS | Clinical Summary ---
Author Organization [facility] it Address [address] [place] [address] Care Team Providers Care University Registrar Name Role Phone Unavailable Primary Care Provider [...] Cervical Cancer Screening: P ap Smear 2015 HPV Vaccines (1 - 3-dose SCD M series) 2021 HIV Screening 05/24/2022 Hepatitis C Screening 05/24/2022 Social Influencers of Health Screening 05/24/2022 Depression Screening 06/22/2024 COVID-19 Vaccine (1 - 2023-2 5 season) 2025 Influenza Vaccine (#1) 2025 RSV Immunization Adult Patie nts (1 - 1-dose 75+ series) 2069 HIB Vaccines Aged Out No longer eligi [...]
--- OUTSIDE RECORDS SUMMARY | 2025-04-18 15:35 | XMS_ITS | Encounter Summary ---
Author Organization [facility] Address [address] [place] [address] Phone Care Team Providers Care Crisis Specialist Name Role Phone Mandi Campoverde MD Primary Care Provider Encounter Details Date Type Department Care Team (Late st Contact Info) Description 10/29/2009 Documentation [facility] [place] Family Medicine [address] [place] [address] Family Medicine, Physician [address] [place], [place] [phone] Social History Tobacco Use Types Packs/Day Years [...] on filedocumented in this encounter Care Teams Crisis Specialist Relationship Specialty Start Date End Date Mandi Campoverde MD [address] [facility] [place] [address] PCP - General 01/30/17 09/23/22 documented as of this encounter
[2025-04-24 14:18] LABS: Cotinine, U 358 ng/mL; Nicotine, U 17 ng/mL
== END 2025-04-18 12:19 | disposition home or self-care (01) ==
LOC: HO.LAB 12:18
PROVIDERS: PCP Internal Medicine Medical Oncology; Visit Provider Surgery
DX: Z87.891 Personal history of nicotine dependence (principal)
CPT/HCPCS: 80323; 82375

== ENCOUNTER 2025-04-20 11:56 | Day surgery (SDC) | payer OTHER, SELFPAY ==
--- NOTE | 2025-03-23 14:32 | P.CONAN_ITS ---
Documented by User: Coby Colbert NP 03/30/25 12:25 HPI - Anesthesia Eval Consult details Narrative: 29yo F for Upper Endoscopy, 04/20/25 BMI 48 PMFSH Active Problems Active Problems: All Active Problems Zinc deficiency (Acute) Vitamin B12 deficiency (Acute) Vitamin D deficiency (Acute) Bereavement (Acute) Adjustment disorder, unspecified (Acute) Obstructive sleep apnea (Acute) Morbid obesity (Acute) GERD (gastroesophageal reflux disease) (Acute) Past Medical History Medical History Sleep apnea GERD (gastroesophageal reflux disease) Family History Family History Mother No problems noted. Father Heart problem Vertigo Diabetes Hypertension High cholesterol Obesity Brother Lupus Obesity Hypertension Surgical History Surgical History History of ankle surgery Social History Social History Are you a primary health care assistant to a significant other at home: No Do you presently have visiting nurse or other home services: No Alcohol intake: current Alcohol intake frequency: holidays/special occasions only Patient Tobacco Use Status: Former Tobacco user Cigarettes Per Day: 4 Substance Use Type: Marijuana Have you been hit, kicked, punched, or otherwise hurt by someone within the past year? If so, by whom?: No Are you DNR?: No Advance Directives: No Advance Directives Information Provided: Yes FDLMP: due any minute Meds Allergies Allergy/AdvReac Type Severity Reaction Status Date / Time No Known Allergies Allergy Verified 04/20/25 12:02 Exam Height,Weight and Vital Signs: Height 5 ft 4 in Assessment and Plan Assessment Anesthesia Assessment: Chart Reviewed Documented by User: Jina Phillips MD 04/20/25 13:59 PMFSH Past Medical History Medical History Sleep apnea GERD (gastroesophageal reflux disease) Functional capacity: bed bound Family History Family History Mother No problems noted. Father Heart problem Vertigo Diabetes Hypertension High cholesterol Obesity Brother Lupus Obesity Hypertension Surgical History Surgical History History of ankle surgery History of Problems with Anesthesia: No Social History Social History Are you a primary health care assistant to a significant other at home: No Do you presently have visiting nurse or other home services: No Alcohol intake: current Alcohol intake frequency: holidays/special occasions only Patient Tobacco Use Status: Former Tobacco user Cigarettes Per Day: 4 Substance Use Type: Marijuana Have you been hit, kicked, punched, or otherwise hurt by someone within the past year? If so, by whom?: No Are you DNR?: No Advance Directives: No Advance Directives Information Provided: Yes FDLMP: due any minute Meds Allergies Allergy/AdvReac Type Severity Reaction Status Date / Time No Known Allergies Allergy Verified 04/20/25 12:02 Exam Airway Mallampati Class: II TM Dist: >3cm Neck ROM: Full Loose/Missing/Broken Teeth: No Heart: RRR Lungs: CTA Assessment and Plan Assessment Anesthesia Assessment: Anesthesia Plan Discussed Final Anesthetic Review History of Problems with Anesthesia: No NPO: Yes ASA Class: III Final Preanesthetic Review: Meds/Allgs Chart Reviewed, Consent Obtained/Reviewed and Anes Risks/Benef Reviewed Patient Risk: Intermediate Procedure Risk: Intermediate Anesthetic Plan Anesthetic Plan: MAC: Disposition: Standard PACU
[2025-04-20] MEDS: Lactated Ringers 1,000 ML 100 ML IVCONT (12:16)
[2025-04-20 12:19] LABS: UPreg QC Valid YES
[2025-04-20 12:23] VITALS: BMI 39.6
[2025-04-20 12:24] VITALS: BP 143/84; PULSE 70; RESP 18; TEMP 36.6; O2SAT 99
--- NOTE | 2025-04-20 13:39 | MHC.SHP ---
Pre-Procedural Eval Section A - 24 Hr Update-Section A only Date of Service: 04/20/25 The patient is an INPATIENT: No The patient has been examined within 24 hours of the surgical procedure. The History & Physical has been completed within 30 days and I have reviewed it.: Yes Section B - Complete if H&P > 30 days Chief Complaint: Obesity, unspecified Details of Present Illness: GERD Relevant Family History (Specify if Yes): No Relevant Social History: None Present Medications: None Medical History: No relevant PMH History of Previous Operations: No relevant previous surgery Allergies: Allergies Allergy/AdvReac Type Severity Reaction Status Date / Time No Known Allergies Allergy Verified 04/20/25 12:02 Review of Systems Sugical H&P ROS: Negative: Constitution, Cardiovascular, Respiratory, Neurological, Psychiatric, Hem-Onc, Allergic/Immunologic, Gastrointestinal, Genitourinary, Musculoskeletal, Integumentary, Endocrine and Eyes/Ears/Nose/Throat Exam Surgical H&P Exam: Normal: HEENT, Normal: Heart, Normal: Lungs, Normal: Extremities, Normal: Abdomen, Normal: Skin and Normal: Neurological Plan Diagnosis/Plan: Unchanged (EGD to assess etiology of GERD. Risks of bleeding and perforation were discussed with the patient and she is in agreement with the plan.) I have reviewed the history and physical and performed a pertinent physical examination on my patient. No changes have occurred unless specified. Time Spent With Patient Time: Total time managing care of this patient today ____ minutes.
--- NOTE | 2025-04-20 13:39 | PM.OP ---
Brief Operative Note Date of Service: 04/20/25 Pre-op diagnosis: GERD Post-op diagnosis: same Procedure: PROCEDURE DATE: 04/20/2025 PREOPERATIVE DIAGNOSIS: GERD POSTOPERATIVE DIAGNOSIS: ?Same as above. 1) 3cm fixed diaphragmatic hernia, 2) esophagitis PROCEDURE: [id number] with biopsies Surgeon: ?Glen Cardoso M.D.. Ph.D. Electronic Resources Librarian: None ? Anesthesia: IV sedation Estimated blood loss: ?Minimal FINDINGS AND PROCEDURE: ? OPERATIVE INDICATIONS: ?The patient is a 29 year old female known to me who is interested in bariatric surgery. The patient has GERD. Based on this information I recommended an upper endoscopy to evaluate the patient's symptoms. Risks and complications of the surgery were discussed with the patient in advance particularly the possibility of perforation or bleeding that may require surgical intervention. The patient understood the risks and was in agreement with the plan. ? PROCEDURE: After informed consent was obtained by the patient, the patient was ?transferred to the Operating Room and was placed in the supine position.? After successful induction of IV sedation, a mouth block was inserted and the patient was placed in the left lateral decubitus position. An upper endoscopy was performed next, the oropharynx and esophagus appeared within the normal limits. There was a 3cm fixed hiatal hernia. The z-line was irregular with tongues of gastric mucosa protruding into the esophagus. Two biopsies were obtained from the distal esophagus 2-3 cm proximal to the GE junction and two additional biopsies from the GE junction. The stomach was entered and it appeared to be of normal size. It was very tortuous with significant fundal redundancy. There was no gastritis. There was no stricture or ulcer. A biopsy was obtained from the gastric fundus and the antrum. No significant bleeding was noted from any of the biopsy sites. Retroflexion of the scope confirmed the presence of a normal GE junction. The scope was then advanced into the duodenum which appeared to be normal as well. At that point the duodenum ?and the stomach were decompressed and the scope was withdrawn from the patient's mouth. The patient extubated and was transferred in stable condition to the Recovery Room for further care. I was present and performed all steps of the procedure. There were no residents to assist with this case. Glen Cardoso M.D., Ph.D. Surgeon: Jermain Cardoso MD Anesthesia: MAC Was an Electronic Resources Librarian used for this Procedure?: No Estimated blood loss (mL): 0 IV fluids (mL): 400 Urine output (mL): 0 (No Toribio to record output) Pathology: other (1) antrum x1, 2) fundus x1, 3) GE junction x2, 4) distal esophagus x2) Condition: stable Disposition: PACU
[2025-04-20 14:10] VITALS: BP 114/79; PULSE 94; RESP 12; TEMP 36.1; O2SAT 97
[2025-04-20 14:25] VITALS: BP 125/81; PULSE 83; RESP 16; TEMP 36.3; O2SAT 99
== END 2025-04-20 14:45 | disposition home or self-care (01) ==
PROVIDERS: Nurse Practitioner; PCP Internal Medicine Medical Oncology; Visit Provider Surgery
PROC: 0DJ08ZZ Inspection of Upper Intestinal Tract, Via Natural or Artificial Opening Endoscopic (ICD-10-PCS; CPT 43235; principal; 2025-04-20 14:10)
DX: K21.9 Gastro-esophageal reflux disease without esophagitis (principal); E66.01 Morbid (severe) obesity due to excess calories; Z68.42 Body mass index [BMI] 45.0-49.9, adult; K20.80 Other esophagitis without bleeding; K44.9 Diaphragmatic hernia without obstruction or gangrene; K31.89 Other diseases of stomach and duodenum; F17.210 Nicotine dependence, cigarettes, uncomplicated; G47.33 Obstructive sleep apnea (adult) (pediatric)
CPT/HCPCS: 43239; 81025; 88305; 88313; 88342; J2003; J2704

== ENCOUNTER → 2025-04-20 11:56 | Outpatient (BNV) | payer OTHER, SELFPAY | PROVIDERS: PCP Internal Medicine Medical Oncology; Visit Provider Surgery | DX: K44.9 Diaphragmatic hernia without obstruction or gangrene (principal); K20.80 Other esophagitis without bleeding | CPT/HCPCS: 43239 ==

== ENCOUNTER 2025-05-04 12:10 | Outpatient (AMB) | payer OTHER, SELFPAY ==
--- NOTE | 2025-05-04 12:00 | MHC.WMTHER ---
Intake Intake Visit Reasons: TV BH F/U Allergies No Known Allergies Allergy (Verified 04/20/25 12:02) PFS Medical History Sleep apnea GERD (gastroesophageal reflux disease) Surgical History History of ankle surgery Family History Mother No problems noted. Father Heart problem Vertigo Diabetes Hypertension High cholesterol Obesity Brother Lupus Obesity Hypertension Social History Are you a primary medicare insurance specialist to a significant other at home: No Do you presently have visiting nurse or other home services: No Alcohol intake: current Alcohol intake frequency: holidays/special occasions only Patient Tobacco Use Status: Former Tobacco user Cigarettes Per Day: 4 Substance Use Type: Marijuana Behavioral Health Assessment Weight Management Therapy Therapy Notes Details The patient is a 29-year-old female who was evaluated and cleared for the surgical weight loss program over a year ago but discontinued participation. She is now reestablishing care and presents today for a behavioral health reassessment as part of the program. Presenting Concerns Referral Source WMP-Provider. Reason for referral Completion of behavioral health assessment as part of process for weight-loss surgery. Precipitating Event Obesity, PT is reestablishing care. Living Situation Current Living Situation Relative's/Guardian's Gustavo and Rent At risk of losing current housing? No Satisfied with current living situation? No Comments PT lives with her boyfriend and 1 cat, in the second floor or her parents 3 family home. Food/Weight/Diet Expectations of change PT started the program on 01/12/2025 at 282Lbs and reports her most recent weight was 227Lbs as of 05/03/2025. Patient goals are to be at her heathy weight. PT is implementing the following: Current meal plan: 2 shakes, 2 bars and 1 meal at day. Exercise plan: goes to the gym 3 times at week, also does treadmill to burn 400 nino. scale: yes Communication with provider: Wednesdays. History/Relationship with food As a child, she was required to finish her plate before having dessert and did not follow a regular meal schedule, often eating out. She identifies portion control as her main challenge and has never been a regular breakfast eater, though she began using shakes during a 2021 program. Over the past year, she has started cooking more at home and focusing on food quality. She denies using food as a reward or for stress relief. History/Relationship with weight She was overweight as a child and weighed 180 lbs at age 15. Over the past 10 years, her weight ranged from a low of 197 lbs to a high of 305 lbs in August 2023. In the past year, following a difficult breakup, she lost approximately 78 lbs through significant lifestyle changes, including a new job, improved diet, and consistent exercise. History/Relationship with dieting The patient participated in a weight loss program in 2018, losing 20 lbs before an injury and loss of insurance interrupted her progress. She joined another program in 2021 but was unable to continue due to knee surgery and limited social support. Currently, she works with a personalized living assistant three times a week, aims for 15,000?25,000 steps daily, and follows the meal and exercise plan from her 2021 program, though she is not using the associated software. She resumed the program last year and is now continuing with Dr. Ramirez plan. Binge Eating Do you frequently eat large amounts of food in short periods of time, not feeling physically hungry? No Do you feel out of control when you eat a large amount of food in a short period of time? No Do you eat large amounts of food rapidly and typically alone? No Night Eating Do you wake up at least once during the night to eat? No If you wake up in the night, do you find that it is necessary to eat something in order to fall back asleep? No Do you have little or no appetite in the morning and feel very hungry in the evening, often overeating between dinner and when you go to bed? No Social History Family history and relationship PT is in a relationship and has no kids. The patient was born and raised in [place] by both her parents. She stated that her childhood was great. She has one half-brother who is 15 years older. Her family has been very supportive in the last year as she leave a toxic relationship she was in for about 9 years. 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 Developmental history and status None reported. Social support New partner, best friend, parents. Community support None. Pentecostal/Spirituality Grew up as Pentecostalism and Restorationism but she doesn't practice. Cultural/Ethnic information (iris/Macedonian-Surinamese). Legal Involvement and History Current or historical involvement with the legal system? None. Education Highest grade completed Associate degree Preferred learning style Auditory, Verbal, Written, Learn by doing and Visual Currently enrolled in educational program? No Interested in further educational program? Yes (Interest in pursue a bachelors or get into nursing. 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 No Meaningful activities working out, being outdoor, hiking, kayaking, fishing, read books, family time. Financial Situation Describe current financial situation Comfortable and Occasional struggle Financial assistance? Food [place] Service Service? No Mental Health and Addiction Treatment Current/Past substance abuse? No Comments Alcohol: 1-2 drink on weekends if there is an event - No more than 2 x month. Cigarettes/Tobacco: None, quit last year. Cannabis/Edibles: Edibles for sleep. Current/Past addictive behavior concerns? No Psychiatric history PT has been in therapy before when in for couple months but not currently. Not aware of any diagnosis given. Denies ever been in crisis and/or inpatient for , also denied any safety concerns around SI, SA, self/other-harm concern. Medical and Physical Health Summary Additional Medical History not covered in history Sciatic pain issues/ flares up once in a while. Sexual History concerns None reported. Physical exam in the last year? Yes Pain Screening Current pain? No Pain in the last few months? No Medications Is the patient compliant with medications? Yes Does the patient have Dawson Guardian in place? Not applicable Does the patient use complimentary health approaches? No Trauma/Abuse History History of trauma? No Questionnaires PHQ-9 Over the last 2 weeks, how often have you been bothered by any of the following problems? 1. Little interest or pleasure in doing things: not at all 2. Feeling down, depressed, or hopeless: not at all 3. Trouble falling or staying asleep, or sleeping too much: not at all 4. Feeling tired or having little energy: not at all 5. Poor appetite or overeating: not at all 6. Feeling bad about yourself - or that you are a failure or have let yourself or your family down: not at all 7. Trouble concentrating on things, such as reading the newspaper or watching television: not at all 8. Moving or speaking so slowly that other people could have noticed. Or the opposite - being so fidgety or restless that you have been moving around a lot more than usual: not at all 9. Thoughts that you would be better off or of hurting yourself in some way: not at all Total score: 0 Depression Screening Interpretation: Negative Depression Screening Done: Yes 69060 - PHQ-9 Billing: Yes Source: Developed by Drs. Omi Weston, Anna Rubio, Bran Cortés and colleagues, with an educational lisa from [employer]. Binge Eating Scale Group 1 A. I don't feel self-conscious about my wt. or body size when I'm with others. B. I feel concerned about how I look to others, but it normally does not make me fell disappointed with myself C. I do get self-conscious about my appearance and wt. which makes me feel disappointed in myself. D. I feel very self-conscious about my wt. and frequently I feel intense shame and disgust for myself. I try to avoid social contacts because of my self-consciousness. Response Group 1: B Group 2 A. I don't have any difficulty eating slowly in the proper manner. B. Although I seem to gobble down foods, I don't end up feeling stuffed because of eating to much. C. At times, I tend to eat quickly and then, I feel uncomfortably full afterwards. D. I have the habit of bolting down my food, without really chewing it. When this happens I usually feel uncomfortably stuffed because I've eaten to much. Response Group 2: C Group 3 A. I feel capable to control my eating urges when I want to. B. I feel like I have failed to control my eating more than the average person. C. I feel utterly helpless when it comes to feeling in control of my eating urges. D. Because I feel so helpless about controlling my eating I have become very desperate about trying to get control. Response Group 3: A Group 4 A. I don't have the habit of eating when I'm bored. B. I sometimes eat when I'm bored, but often I'm able to get busy and get my mind off food. C. I have a regular habit of eating when I'm bored, but occasionally, I can use some other activity to get my mind off eating. D. I have a strong habit of eating when I'm bored. Nothing seems to help me breath the habit. Response Group 4: A Group 5 A. I'm usually physically hungry when I eat something. B. Occasionally, I eat something on impulse even though I really am not hungry. C. I have the regular habit of eating foods, that I might not really enjoy, to satisfy a hungry feeling even though physically, I don't need the food. D. Although I'm not physically hungry, I get a hungry feeling in my mouth that only seems to be satisfied when I eat a food, like sandwich, that fills my mouth. Sometimes, when I eat the food to satisfy my mouth hunger, I then spit the food out so I won't gain weight. Response Group 5: A Group 6 A. I don't feel any guilt or self-hate after I overeat. B. After I overeat, occasionally I feel guilt or self-hate. C. Almost all the time I experience strong guilt or self-hate after I overeat. Response Group 6: B Group 7 A. I don't lose total control of my eating when dieting even after periods when I overeat. B. Sometimes when I eat a forbidden food on a diet, I feel like I blew it and eat even more. C. Frequently, I have the habit of saying to myself, I've blown it now, why not go all the way, when I overeat on a diet. When that happens I eat more. D. I have a regular habit of starting a strict diets for myself but I break the diets by going on an eating binge. My life seems to be either a feast or famine. Response Group 7: A Group 8 A. I rarely eat so much food that I feel uncomfortably stuffed afterwards. B. Usually about once a month, I each such a quantity of food, I end up feeling very stuffed. C. I have regular periods during the month when I eat large amounts of food, either at mealtime or at snacks. D. I eat so much food that I regularly feel quite uncomfortable after eating and sometimes a bit nauseous. Response Group 8: B Group 9 A. My level of calorie intake does not go up very high or go down very low on a regular basis. B. Sometimes after I overeat, I will try to reduce my caloric intake to almost nothing to compensate for the excess calories I've eaten. C. I have a regular habit of overeating during the night. It seems that my routine is not to be hungry in the morning but overeat in the evening. D. In my adult years, I have had week-long periods where I practically starve myself. This follows periods when I overeat. It seems I live a life of either feast or famine. Response Group 9: A Group 10 A. I usually am able to stop eating when I want to. I know when enough is enough. B. Every so often, I experience a compulsion to eat which I can't seem to control. C. Frequently, I experience strong urges to eat which I seem unable to control, but at other times I can control my eating urges. D. I feel incapable of controlling urges to eat. I have a fear of not being able to stop eating voluntarily. Response Group 10: A Group 11 A. I don't have any problem stopping eating when I feel full. B. I usually can stop eating when I feel full but occasionally overeat leaving me feeling uncomfortably stuffed. C. I have a problem stopping eating once I start and usually I feel uncomfortably stuffed after I eat a meal. D. Because I have a problem not being able to stop eating when I want, I sometimes have to induce vomiting to relieve my stuffed feeling. Response Group 11: A Group 12 A. I seem to eat just as much when I'm with others, Family social gatherings as when I'm by myself. B. Sometimes, when I'm with other persons, I don't eat as much as I want to eat because I'm self-conscious about my eating. C. Frequently, I eat only a small amount of food when others are present, because I'm very embarrassed about my eating. D. I feel so ashamed about overeating that I pick times to overeat when I know no one will see me. I feel like a closet eater. Response Group 12: A Group 13 A. I eat three meals a day with only an occasional between meal snack. B. I eat 3 meals a day, but I also normally snack between meals. C. When I am snacking heavily, I get in the habit of skipping regular meals. D. There are regular periods when I seem to be continually eating, with no planned meals. Response Group 13: B Group 14 A. I don't think much about trying to control unwanted eating urges. B. At least some of the time, I feel my thoughts are pre-occupied with trying to control my eating urges. C. I feel that frequently I spend much time thinking about how much I ate or about trying not to eat anymore. D. It seems to me that most of my waking hours are pre-occupied by thoughts about eating or not eating. I feel like I'm constantly struggling not to eat. Response Group 14: B Group 15 A. I don't think about food a great deal. B. I have strong craving for food but they last only for brief periods of time. C. I have days when I can't seem to think about anything else but food. D. Most of my days seem to be pre-occupied with thoughts about food. I feel like I live to eat. Response Group 15: A Group 16 A. I usually know whether or not I'm physically hungry. I take the right portion of food to satisfy me. B. Occasionally, I feel uncertain about knowing whether or not I'm physically hungry. A these times it's hard to know how much food I should take to satisfy me. C. Even though I might know how many calories I should eat, I don't have any idea what is a normal amount of food for me. Response Group 16: A Binge Eating Score: 7 Score less than 17 Minimal Risk Score between 18-26 Moderate Risk Score between 27-46 High Risk Assessment & Plan Assessment & Plan (1) Adjustment disorder, unspecified: Code(s): F43.20 - Adjustment disorder, unspecified (2) Pre-bariatric surgery psychological evaluation: Code(s): Z71.89 - Other specified counseling Plan Following a comprehensive behavioral health assessment?including review of the Binge Eating Scale, PHQ-9, mental status evaluation, and patient self-report?there are currently no behavioral health contraindications to proceeding with bariatric surgery. The patient demonstrates appropriate insight, motivation, and psychological readiness for the procedure. No active psychiatric symptoms or maladaptive eating behaviors were identified that would impede surgical outcomes at this time. The patient is cleared from a behavioral health perspective to proceed with bariatric surgery and documentation can be submitted for insurance approval as indicated. PT will return for a follow-up behavioral health visit 1?4 weeks postoperatively to monitor psychological adjustment, reinforce coping strategies, and screen for any emerging concerns such as mood changes, adjustment difficulties, or disordered eating patterns. Additional behavioral health support will be provided as needed based on postoperative assessment. Next vandana: 1-4 weeks PO. Telehealth Telehealth Telehealth Platform: [employer] Location of provider rendering services: practice address Location of patient: address on file Patient Identification confirmed using: Name, : Yes Telehealth method: video Patient verbally consented to treatment: Yes Patient verbally consented to billing insurance company: Yes Patient informed of any privacy concerns related to visit: Yes Minutes spent on Phone/Video with Pt.: 60 [place] [address] Tele Psy Diag Eval Patient Type New Diagnoses Adjustment disorder, unspecified F43.20 Pre-bariatric surgery psychological evaluation Z71.89 Additional Codes PHQ-9 - 21081 - PHQ-9 Billing: Yes ([id number]) Time Spent (min) 60
--- OUTSIDE RECORDS SUMMARY | 2025-05-04 15:23 | XMS_ITS | Clinical Summary ---
Author Organization [facility] it Address [address] [place] [address] Care Team Providers Care Print Shop Chief Clerk Name Role Phone Unavailable Primary Care Provider [...] Depression Screening 06/22/2024 COVID-19 Vaccine (1 - 2024-2 6 season) 2025 Influenza Vaccine (#1) 2025 RSV [...]
--- OUTSIDE RECORDS SUMMARY | 2025-05-04 15:23 | XMS_ITS | Encounter Summary ---
Author Organization [facility] Address [address] [place] [address] Phone Care Team Providers Care Rv Technician Name Role Phone Mandi Campoverde MD Primary Care Provider [phone] Encounter Details Date Type Department Care Team (Late st Contact Info) Description 09/21/2013 Documentation [facility] [place] Family Medicine [address] [place] [address] Family Medicine, Physician [address] [place], [place] [phone] Social History Tobacco Use Types Packs/Day Years [...] on filedocumented in this encounter Care Teams Rv Technician Relationship Specialty Start Date End Date Mandi Campoverde MD [address] [facility] [place] [id number] PCP - General 01/30/17 09/23/22 documented as of this encounter
--- OUTSIDE RECORDS SUMMARY | 2025-05-04 15:23 | XMS_ITS | Encounter Summary ---
Author Organization [facility] Address [address] [place] [address] Phone Care Team Providers Care Vocational Education Teacher Name Role Phone Mandi Campoverde MD Primary Care Provider Encounter Details Date Type Department Care Team (Late st Contact Info) Description 10/29/2009 Documentation [facility] [place] Family Medicine [address] [place] [address] Family Medicine, Physician [address] [place], [place] [phone] Social History Tobacco Use Types Packs/Day Years [...] on filedocumented in this encounter Care Teams Vocational Education Teacher Relationship Specialty Start Date End Date Mandi Campoverde MD [address] [facility] [place] [id number] PCP - General 01/30/17 09/23/22 documented as of this encounter
--- OUTSIDE RECORDS SUMMARY | 2025-05-04 15:23 | XMS_ITS | Encounter Summary ---
Author Organization [facility] Address [address] [place] [address] Phone Care Team Providers Care Tube Sizer Operator Name Role Phone Mandi Campoverde MD Primary Care Provider [phone] Encounter Details Date Type Department Care Team (Late st Contact Info) Description 11/14/2011 Documentation [facility] [address] [place] [address] Family Medicine, Physician [address] [place], [place] [phone] Social History Tobacco Use Types Packs/Day Years [...] on filedocumented in this encounter Care Teams Tube Sizer Operator Relationship Specialty Start Date End Date Mandi Campoverde MD 150 [facility] [place] [id number] PCP - General 01/30/17 09/23/22 documented as of this encounter
--- OUTSIDE RECORDS SUMMARY | 2025-05-04 15:23 | XMS_ITS | Encounter Summary ---
Author Organization [facility] Address [address] [place] [address] Phone Care Team Providers Care Dust Control Engineer Name Role Phone Mandi Campoverde MD Primary Care Provider Encounter Details Date Type Department Care Team (Late st Contact Info) Description 10/29/2009 Documentation [facility] [place] Family Medicine [address] [place] [address] Family Medicine, Physician [address] [place], [place] [phone] Social History Tobacco Use Types Packs/Day Years [...] on filedocumented in this encounter Care Teams Dust Control Engineer Relationship Specialty Start Date End Date Mandi Campoverde MD 150 [facility] [place] [id number] PCP - General 01/30/17 09/23/22 documented as of this encounter
--- OUTSIDE RECORDS SUMMARY | 2025-05-04 15:23 | XMS_ITS | Encounter Summary ---
Author Organization [facility] Address [address] [place] [address] Phone Care Team Providers Care Remediation Bioanalytics Consultant Name Role Phone Mandi Campoverde MD Primary Care Provider Encounter Details Date Type Department Care Team (Late st Contact Info) Description 02/05/2017 Conversion Encounter [facility] [place] [address] [place] [address] Social History Tobacco Use Types Packs/Day Years [...] on filedocumented in this encounter Care Teams Remediation Bioanalytics Consultant Relationship Specialty Start Date End Date Mandi Campoverde MD [address] [place] [address] PCP - General 01/30/17 09/23/22 documented as of this encounter
--- OUTSIDE RECORDS SUMMARY | 2025-05-04 15:23 | XMS_ITS | Encounter Summary ---
Author Organization [facility] Address [address] [place] [address] Phone Care Team Providers Care Cardiology Associate Name Role Phone Mandi Campoverde MD Primary Care Provider Encounter Details Date Type Department Care Team (Late st Contact Info) Description 10/05/2014 Documentation [facility] Family Medicine [address] [place] [address] Family Medicine, Physician [address] [place], [place] [phone] Social History Tobacco Use Types Packs/Day Years [...] on filedocumented in this encounter Care Teams Cardiology Associate Relationship Specialty Start Date End Date Mandi Campoverde MD [address] [facility] [place] [id number] PCP - General 01/30/17 09/23/22 documented as of this encounter
--- OUTSIDE RECORDS SUMMARY | 2025-05-04 15:23 | XMS_ITS | Clinical Summary ---
Author Organization [facility] Address [address] [place] [address] Phone Care Team Providers Care Glass Washer And Carrier Name Role Phone Unavailable Primary Care Provider [...] complete this topic Procedures * Due to [place] state law, this organization might not be sharing sensitive test results. Procedure Name Priority Date/Time Associated Diagnosis Comments CHLAMYDIA AND GONORRHEA, AMPLIFIED Routine 10/25/2012 7:18 AM EDT from Last 3 Months or Most Recently Relevant to Health Maintenance Results * Due to [place] state law, this organization might not be sharing sensitive test results. * Chlamydia and Gonorrhoea, Amplified (10/25/2012 7:18 AM EDT) URINE CHLAMYDIA AMP PROBE NEGATIVE [facility] Comment: NO CHLAMYDIA TRACHOMATIS RNA DETECTED IN THIS PATIENT'S SAMPLE. (REFERENCE RANGE/NORMAL VALUE: NOT DETECTED) URINE GC AMP PROBE NEGATIVE [facility] Comment: NO NEISSERIA GONORRHOEAE RNA DETECTED IN THIS PATIENT'S SAMPLE. (REFERENCE RANGE/NORMAL VALUE: NOT DETECTED) NOTE: THIS TEST USES LOOM OVERHAULER-MEDIATED AMPLIFICATION METHOD TO DETECT rRNA FROM C.TRACHOMATIS [...] OF INFECTION. 10/25/2012 7:18 AM EDT Narrative [facility] - 10/25/2012 7:18 AM EDT URINE CHLAMYDIA GC AMP PROBE us Mandi Campoverde MD LAB MICROBIOLOGY - GENERAL O RDERABLES Final Result [facility] [address] [place] [address], [place] from Last 3 Months or Most Recently Relevant to Health Maintenance
--- OUTSIDE RECORDS SUMMARY | 2025-05-04 15:23 | XMS_ITS | Encounter Summary ---
Author Organization [facility] Address [address] [place] [address] Phone Care Team Providers Care Cardiovascular Lab Director Name Role Phone Mandi Campoverde MD Primary Care Provider Encounter Details Date Type Department Care Team (Late st Contact Info) Description 10/29/2009 Documentation [facility] [place] Family Medicine [address] [place] [address] Family Medicine, Physician [address] [place], [place] [phone] Social History Tobacco Use Types Packs/Day Years [...] on filedocumented in this encounter Care Teams Cardiovascular Lab Director Relationship Specialty Start Date End Date Mandi Campoverde MD 150 [facility] [place] [address] PCP - General 01/30/17 09/23/22 documented as of this encounter
== END 2025-05-04 12:59 | disposition home or self-care (01) ==
LOC: HO.HBST 12:10
PROVIDERS: PCP Internal Medicine Medical Oncology; Visit Provider Counselor Mental Health
DX: F43.20 Adjustment disorder, unspecified (principal); Z71.89 Other specified counseling
CPT/HCPCS: 90791

== ENCOUNTER 2025-05-05 07:17 | Outpatient (REF) | payer OTHER, SELFPAY ==
--- OUTSIDE RECORDS SUMMARY | 2025-05-05 07:19 | XMS_ITS | Encounter Summary ---
Author Organization [facility] Address [address] [place] [address] Phone Care Team Providers Care Travel Rn Or Name Role Phone Mandi Campoverde MD Primary Care Provider Encounter Details Date Type Department Care Team (Late st Contact Info) Description 10/29/2009 Documentation [facility] [place] Family Medicine [address] [place] [address] Family Medicine, Physician [address] [place], [place] [phone] Social History Tobacco Use Types Packs/Day Years [...] on filedocumented in this encounter Care Teams Travel Rn Or Relationship Specialty Start Date End Date Mandi Campoverde MD 150 [facility] [place] [address] PCP - General 01/30/17 09/23/22 documented as of this encounter
--- OUTSIDE RECORDS SUMMARY | 2025-05-05 07:19 | XMS_ITS | Encounter Summary ---
Author Organization [facility] Address [address] [place] [address] Phone Care Team Providers Care Application Support Engineer Name Role Phone Mandi Campoverde MD Primary Care Provider Encounter Details Date Type Department Care Team (Late st Contact Info) Description 11/14/2011 Documentation [facility] [place] [address] [place] [address] Family Medicine, Physician [address] [place], [place] [phone] Social History Tobacco Use Types Packs/Day Years [...] on filedocumented in this encounter Care Teams Application Support Engineer Relationship Specialty Start Date End Date Mandi Campoverde MD 150 [facility] [place] [address] PCP - General 01/30/17 09/23/22 documented as of this encounter
--- OUTSIDE RECORDS SUMMARY | 2025-05-05 07:19 | XMS_ITS | Encounter Summary ---
Author Organization [facility] Address [address] [place] [address] Phone Care Team Providers Care Histologist Technologist Name Role Phone Mandi Campoverde MD Primary Care Provider Encounter Details Date Type Department Care Team (Late st Contact Info) Description 10/29/2009 Documentation [facility] [place] [place] Family Medicine [address] [place] [address] Family Medicine, Physician [address] [place], [place] [phone] Social History Tobacco Use Types Packs/Day Years [...] on filedocumented in this encounter Care Teams Histologist Technologist Relationship Specialty Start Date End Date Mandi Campoverde MD 150 [facility] [place] [address] PCP - General 01/30/17 09/23/22 documented as of this encounter
--- OUTSIDE RECORDS SUMMARY | 2025-05-05 07:19 | XMS_ITS | Encounter Summary ---
Author Organization [facility] Address [address] [place] [address] Phone Care Team Providers Care Cigarette Catcher Name Role Phone Mandi Campoverde MD Primary Care Provider [phone] Encounter Details Date Type Department Care Team (Late st Contact Info) Description 02/05/2017 Conversion Encounter [facility] [address] [place] [address] Social History Tobacco Use Types Packs/Day Years [...] on filedocumented in this encounter Care Teams Cigarette Catcher Relationship Specialty Start Date End Date Mandi Campoverde MD 150 [place] [address] PCP - General 01/30/17 09/23/22 documented as of this encounter
--- OUTSIDE RECORDS SUMMARY | 2025-05-05 07:19 | XMS_ITS | Clinical Summary ---
Author Organization [facility] it Address [address] [place] [address] Care Team Providers Care Strategic Account Manager Name Role Phone Unavailable Primary Care [...]
--- OUTSIDE RECORDS SUMMARY | 2025-05-05 07:19 | XMS_ITS | Encounter Summary ---
Author Organization [facility] Address [address] [place] [address] Phone Care Team Providers Care Warehouse Unloader Name Role Phone Mandi Campoverde MD Primary Care Provider [phone] Encounter Details Date Type Department Care Team (Late st Contact Info) Description 10/29/[address] [facility] [place] Family Medicine [address] [place] [address] Family Medicine, Physician [address] [place], [place] [phone] Social History Tobacco Use Types Packs/Day Years [...] on filedocumented in this encounter Care Teams Warehouse Unloader Relationship Specialty Start Date End Date Mandi Campoverde MD 150 [facility] [place] [address] PCP - General 01/30/17 09/23/22 documented as of this encounter
--- OUTSIDE RECORDS SUMMARY | 2025-05-05 07:19 | XMS_ITS | Clinical Summary ---
Author Organization [facility] Address [address] [place] [address] Phone Care Team Providers Care Hotel Operation Manager Name Role Phone Unavailable Primary Care [...] complete this topic Procedures * Due to [place] state law, this organization might not be sharing sensitive test results. Procedure Name Priority Date/Time Associated Diagnosis Comments CHLAMYDIA AND GONORRHEA, AMPLIFIED Routine 10/25/2012 7:18 AM EDT from Last 3 Months or Most Recently Relevant to Health Maintenance Results * Due to [place] state law, this organization might not be sharing sensitive test results. * Chlamydia and Gonorrhoea, Amplified (10/25/2012 7:18 AM EDT) URINE CHLAMYDIA AMP PROBE NEGATIVE [facility] Comment: NO CHLAMYDIA TRACHOMATIS RNA DETECTED IN THIS PATIENT'S SAMPLE. (REFERENCE RANGE/NORMAL VALUE: NOT DETECTED) URINE GC AMP PROBE NEGATIVE [facility] Comment: NO NEISSERIA GONORRHOEAE RNA DETECTED IN THIS PATIENT'S SAMPLE. (REFERENCE RANGE/NORMAL VALUE: NOT DETECTED) NOTE: THIS TEST USES MANAGER MENTAL HEALTH-MEDIATED AMPLIFICATION METHOD TO DETECT rRNA FROM C.TRACHOMATIS [...] INFECTION. 10/25/2012 7:18 AM EDT Narrative [facility] - 10/25/2012 7:18 AM EDT URINE CHLAMYDIA GC AMP PROBE us Mandi Campoverde MD LAB MICROBIOLOGY - GENERAL O RDERABLES Final Result [facility] [address] [place] [address], [place] from Last 3 Months or Most Recently Relevant to Health Maintenance
--- OUTSIDE RECORDS SUMMARY | 2025-05-05 07:19 | XMS_ITS | Encounter Summary ---
Author Organization [facility] Address [address] [place] [address] Phone Care Team Providers Care Mobile Manager Name Role Phone Mandi Campoverde MD Primary Care Provider [phone] Encounter Details Date Type Department Care Team (Late st Contact Info) Description 09/21/2013 Documentation [facility] [place] Family Medicine [address] [place] [address] Family Medicine, Physician [address] [place], [place] [phone] Social History Tobacco Use Types Packs/Day Years [...] on filedocumented in this encounter Care Teams Mobile Manager Relationship Specialty Start Date End Date Mandi Campoverde MD 150 [facility] [place] [address] PCP - General 01/30/17 09/23/22 documented as of this encounter
--- OUTSIDE RECORDS SUMMARY | 2025-05-05 07:19 | XMS_ITS | Encounter Summary ---
Author Organization [facility] Address [address] [place] [address] Phone Care Team Providers Care Grid Casting Machine Operator Helper Name Role Phone Mandi Campoverde MD Primary Care Provider Encounter Details Date Type Department Care Team (Late st Contact Info) Description 10/05/2014 Documentation [facility] [place] [address] [place] [address] Family Medicine, Physician [address] [place], [place] [phone] Social History Tobacco Use Types Packs/Day Years [...] on filedocumented in this encounter Care Teams Grid Casting Machine Operator Helper Relationship Specialty Start Date End Date Mandi Campoverde MD 150 [facility] [place] [address] PCP - General 01/30/17 09/23/22 documented as of this encounter
[2025-05-05 07:41] LABS: Carbon Monoxide POC 2.4 %
[2025-05-11 07:29] LABS: Cotinine, U <2 ng/mL; Nicotine, U 3 ng/mL
== END 2025-05-05 07:18 | disposition home or self-care (01) ==
LOC: HO.LAB 07:17
PROVIDERS: PCP Internal Medicine Medical Oncology; Visit Provider Surgery
DX: Z01.818 Encounter for other preprocedural examination (principal)
CPT/HCPCS: 80307; 80323; 82375

== ENCOUNTER 2025-06-19 10:05 | Outpatient (AMB) | payer OTHER, SELFPAY ==
--- OUTSIDE RECORDS SUMMARY | 2025-06-19 11:18 | XMS_ITS | Encounter Summary ---
Author Organization [facility] Address [address] [place] [address] Phone Care Team Providers Care Loom Mechanic Name Role Phone Mandi Campoverde MD Primary Care Provider Encounter Details Date Type Department Care Team (Late st Contact Info) Description 11/14/2011 Documentation [facility] [place] Family Medicine [address] [place] [address] Family Medicine, Physician [address] [place], [place] [phone] Social History Tobacco Use Types Packs/Day Years [...] on filedocumented in this encounter Care Teams Loom Mechanic Relationship Specialty Start Date End Date Mandi Campoverde MD 150 [facility] [place] [address] PCP - General 01/30/17 09/23/22 documented as of this encounter
--- OUTSIDE RECORDS SUMMARY | 2025-06-19 11:18 | XMS_ITS | Encounter Summary ---
Author Organization [facility] Address [address] [place] [address] Phone Care Team Providers Care Line Erector Apprentice Name Role Phone Mandi Campoverde MD Primary Care Provider Encounter Details Date Type Department Care Team (Late st Contact Info) Description 10/29/2009 Documentation [facility] [place] Family Medicine [address] [place] [address] Family Medicine, Physician [address] [place], [place] [phone] Social History Tobacco Use Types Packs/Day Years [...] on filedocumented in this encounter Care Teams Line Erector Apprentice Relationship Specialty Start Date End Date Mandi Campoverde MD 150 [facility] [place] [address] PCP - General 01/30/17 09/23/22 documented as of this encounter
--- OUTSIDE RECORDS SUMMARY | 2025-06-19 11:18 | XMS_ITS | Encounter Summary ---
Author Organization [facility] Address [address] [place] [address] Phone Care Team Providers Care Disposal Man Name Role Phone Mandi Campoverde MD Primary Care Provider [phone] Encounter Details Date Type Department Care Team (Late st Contact Info) Description 10/29/2009 Documentation [facility] Family Medicine [address] [place] [address] Family Medicine, Physician [address] [place], [place] [phone] Social History Tobacco Use Types Packs/Day Years [...] on filedocumented in this encounter Care Teams Disposal Man Relationship Specialty Start Date End Date Mandi Campoverde MD 150 [facility] [place] [address] PCP - General 01/30/17 09/23/22 documented as of this encounter
--- OUTSIDE RECORDS SUMMARY | 2025-06-19 11:18 | XMS_ITS | Clinical Summary ---
Author Organization [facility] ity Address [address] [place] [address] Care Team Providers Care Circle Saw Operator Name Role Phone Unavailable Primary Care Provider Unavailabl e Social History Tobacco Use Types Packs/Day Years Used Date Smoking Tobacco: Never Smokeless Tobacco: Never Comments Unknown Sex and Gender Information Value Date Recorded Sex Assigned at Not on file Legal Sex Female 6:36 PM EST Gender Identity Not on file Sexual Orientation Not on file Plan of Treatment Health Maintenance Due Date [...]
--- OUTSIDE RECORDS SUMMARY | 2025-06-19 11:18 | XMS_ITS | Encounter Summary ---
Author Organization [facility] Address [address] [place] [address] Phone Care Team Providers Care Dental Technician Name Role Phone Mandi Campoverde MD Primary Care Provider Encounter Details Date Type Department Care Team (Late st Contact Info) Description 02/05/2017 Conversion Encounter [facility] [place] [address] [place] [address] Social History Tobacco Use Types Packs/Day Years [...] on filedocumented in this encounter Care Teams Dental Technician Relationship Specialty Start Date End Date Mandi Campoverde MD 150 [place] [address] PCP - General 01/30/17 09/23/22 documented as of this encounter
--- OUTSIDE RECORDS SUMMARY | 2025-06-19 11:18 | XMS_ITS | Clinical Summary ---
Author Organization [facility] Address [address] [place] [address] Phone Care Team Providers Care Building Maintenance Superintendent Name Role Phone Unavailable Primary Care Provider [...] VALUE: NOT DETECTED) NOTE: THIS TEST USES SHIM PLUG CUTTER-MEDIATED AMPLIFICATION METHOD TO DETECT rRNA FROM C.TRACHOMATIS [...] RDERABLES Final Result [facility] [address] [place] [address], [place] from Last 3 Months or Most Recently Relevant to Health Maintenance
--- OUTSIDE RECORDS SUMMARY | 2025-06-19 11:18 | XMS_ITS | Encounter Summary ---
Author Organization [facility] Address [address] [address] Phone Care Team Providers Care Glue Clamp Operator Name Role Phone Mandi Campoverde MD Primary Care Provider [phone] Encounter Details Date Type Department Care Team (Late st Contact Info) Description 10/29/2009 Documentation [facility] [place] Family Medicine [address] [place] [address] Family Medicine, Physician [address] [place], [place] [phone] Social History Tobacco Use Types Packs/Day Years [...] on filedocumented in this encounter Care Teams Glue Clamp Operator Relationship Specialty Start Date End Date Mandi Campoverde MD 150 [facility] [place] [address] PCP - General 01/30/17 09/23/22 documented as of this encounter
--- OUTSIDE RECORDS SUMMARY | 2025-06-19 11:18 | XMS_ITS | Encounter Summary ---
Author Organization [facility] Address [address] [place] [address] Phone Care Team Providers Care Mother Baby Rn Name Role Phone Mandi Campoverde MD Primary Care Provider Encounter Details Date Type Department Care Team (Late st Contact Info) Description 09/21/2013 Documentation [facility] [place] Family Medicine [address] [place] [address] Family Medicine, Physician [address] [place], [place] [phone] Social History Tobacco Use Types Packs/Day Years [...] on filedocumented in this encounter Care Teams Mother Baby Rn Relationship Specialty Start Date End Date Mandi Campoverde MD 150 [facility] [place] [address] PCP - General 01/30/17 09/23/22 documented as of this encounter
--- OUTSIDE RECORDS SUMMARY | 2025-06-19 11:18 | XMS_ITS | Encounter Summary ---
Author Organization [facility] Address [address] [place] [address] Phone Care Team Providers Care Sponsorship Manager Name Role Phone Mandi Campoverde MD Primary Care Provider Encounter Details Date Type Department Care Team (Late st Contact Info) Description 10/05/2014 Documentation [facility] [place] [address] [place] [address] Family Medicine, Physician [address] [place], [place] [phone] Social History Tobacco Use Types Packs/Day Years [...] on filedocumented in this encounter Care Teams Sponsorship Manager Relationship Specialty Start Date End Date Mandi Campoverde MD 150 [facility] [place] [address] PCP - General 01/30/17 09/23/22 documented as of this encounter
--- NOTE | 2025-06-19 14:25 | A.OFFVIS_ITS ---
VS Expanded 06/19/25 14:43 Height 5 ft 4 in Weight 225 lb 4 oz BMI 38.7 Body Fat % 47.9 Body Fat Mass 107.9 Fat Free Mass 117.2 Visceral Fat Rating 19 Body Water % 35.7 Body Water Mass 80.4 Basal Metabolic Rate/Score 1,520 Intake Visit Reasons: TV Pre Op LSG 07/04/25 Allergies No Known Allergies Allergy (Verified 06/19/25 14:26) Medication List - Last Reconciled 06/19/25 by Jermain Cardoso MD mecobalamin (vitamin B12) 1,000 mcg sublingual DAILY ondansetron 4 mg PO Q12H pantoprazole 40 mg PO DAILY polyethylene glycol 3350 17 grams PO DAILY sucralfate 10 mL PO BID zinc gluconate 10 mg PO DAILY HPI HPI TV Pre Op LSG 07/04/25: Details: Start time: 2.20pm, End time: 2.50pm ?I spent 25 minutes speaking with the patient on the phone plus an additional 5 minutes reviewing and updating records for a total of 30 minutes HPI Comments Details: Overall weight loss: 56.8lbs, or 20.13% TBWL Is doing Whey protein shakes (1 scoop each in almond milk), 2 Fit Crunch protein bars and one meal (8 forks each) Exercise: Gym x5/wk (doing treadmill x5/ PFSH Medical History (Updated 06/19/25 @ 14:45 by Jermain Cardoso MD) BMI 38.0-38.9,adult Obesity Hx MRSA infection Sciatica Hiatal hernia Adjustment disorder, unspecified Sleep apnea GERD (gastroesophageal reflux disease) Surgical History (Updated 06/07/25 @ 13:25 by Breonna Gutierrez, RN) History of esophagogastroduodenoscopy (EGD) History of ankle surgery Family History Mother No problems noted. Father Heart problem Vertigo Diabetes Hypertension High cholesterol Obesity Brother Lupus Obesity Hypertension Social History Are you a primary adult care provider to a significant other at home: No Do you presently have visiting nurse or other home services: No Alcohol intake: current Alcohol intake frequency: does not drink Patient Tobacco Use Status: Former Tobacco user Tobacco use type: Cigarette Cigarettes Per Day: 4 Years Smoked: 2 Substance Use Type: Marijuana Telehealth Telehealth Telehealth Platform: Telephone Location of provider rendering services: practice address Location of patient: address on file Patient Identification confirmed using: Name, : Yes Telehealth method: voice only Patient verbally consented to treatment: Yes Patient verbally consented to billing insurance company: Yes Patient informed of any privacy concerns related to visit: Yes Minutes spent on Phone/Video with Pt.: 30 Assessment & Plan Assessment & Plan (1) Obesity: Code(s): E66.9 - Obesity, unspecified Category: Medical Qualifiers: Obesity type: due to excess calories Obesity classification: adult class 2 (BMI 35 - 39.9) Serious obesity comorbidity presence: without serious comorbidity Body mass index: BMI 38.0-38.9 Qualified Code(s): E66.812 - Obesity, class 2; E66.09 - Other obesity due to excess calories; Z68.38 - Body mass index [BMI] 38.0-38.9, adult Plan: 1. Plan for lap sleeve gastrectomy including upper GI endoscopy. All tests has been completed and reviewed and the patient is cleared for the surgery. ?If diaphragmatic or ventral hernias are present at time of surgery, these will be repaired laparoscopically as well. Risks and complications were discussed in detail including possible conversion to an open procedure, anastomotic leak, bleeding requiring transfusion, small bowel obstruction, , DVT and pulmonary embolism, cardiac, or pulmonary complications, as retirement complications such as anastomotic ulcer, insufficient weight loss and vitamin deficiencies. I emphasized the importance of close follow-up, adherence to instructions and good communication. So far she has proven to be an excellent communicator and very compliant with all our directions accomplishing a great weight loss. I believe that she is an excellent candidate and she is ready. 2. Preop prescriptions were provided and explained the purpose of each one. Need to be purchased preop. Start Pantoprazole now as you get it from the pharmacy, 1 pill per day. Sucralfate and Zofran are for after surgery as needed. 3. Bowel prep: please do 7 packets ?of Miralax mixing each one with a an 8oz glass of water, crystal light, gatorade zero, or propel ?on 07/02/25 and the same amount on 07/03/25. The Miralax you begin with one packet at a time in 8oz water or crystal light, gatorade zero, or propel ?as early in the day as you can and you do them back to back until you finish them. Continue the protein shakes during ?the bowel prep. 4. Needs to purchase 1oz medicine cups . 5. Needs to purchase Children's liquid Tylenol for postop pain control. 6. Avoid aspirin, motrin, Advil, Aleve, Meloxicam, Excedrin, Ibuprofen, Naproxyn. Tylenol is OK. 7. She needs to purchase the Celebrate multivitamins from the hospital's gift shop, chewable or pills whatever you prefer. 8. Will do basic preop blood work-up any day between Thursday06/26/25 and Thursday06/30/25 fasting for 12 hours and is scheduled to see the Anesthesiologist prior to the day of surgery. 9. Importance of adherence to postop folllow-up and recommendations was underscored and she understands that. 10. Stop food and bars as of tomorrow 06/20/25 and continue with 5 Body [employer] Whey protein shakes (HALF scoop EACH in 8oz almond milk) at 7am-9am, 10am-12pm, 1pm-3pm, 4pm-6pm and at 7pm-9pm 11. No soups, broths or V8 12. The patient's?medical?history has been reviewed and they are considered low risk for post op DVT and therefore DVT prophylaxis is not considered necessary. Travel after surgery was reviewed. The patient has not disclosed any travel plans during the first 30 days after surgery and they have been advised that within the first 30 days after surgery any bus, plane, train or car travel over 2 hours in duration is contraindicated due to the possibility of developing blood clots from immobility. Any travel, needs to include periods of ambulation of 10 minutes in duration every 2 hours.? Patient was instructed to discuss any plans for travel during this period with their bariatric surgeon.? 13. Use your CPAP daily and bring it to the hospital with your mask 14. Stop any control pills and don't use them for one month after surgery 15. Absolutely no smoking or vaping, or marijuana until the surgery and for at least the first 4 weeks. Only nicotine patches are allowed. 16. Send me weight measurements on Thursday06/26/25 and then on Thursday07/04/25, the day of surgery before you go to the hospital. 17. Avoid any steroids by mouth for any reason. Let me know if someone prescribes them to you 18. These instructions supersede anything else you read in the handbook, anything you watched in videos or classes or you were told by any other provider. If there is any conflict, you follow the above instructions and nothing else. Orders: Orders Comprehensive Met. Panel Today E66.9 - Obesity, unspecified, Z68.38 - Body mass index [BMI] 38.0-38.9, adult TSH reflex Free T4 Today E66.9 - Obesity, unspecified, Z68.38 - Body mass index [BMI] 38.0-38.9, adult Prothrombin Time INR Today E66.9 - Obesity, unspecified, Z68.38 - Body mass index [BMI] 38.0-38.9, adult Lipid Panel Today E66.9 - Obesity, unspecified, Z68.38 - Body mass index [BMI] 38.0-38.9, adult Type and Screen Today E66.9 - Obesity, unspecified, Z68.38 - Body mass index [BMI] 38.0-38.9, adult Partial Thromboplastin Time Today E66.9 - Obesity, unspecified, Z68.38 - Body mass index [BMI] 38.0-38.9, adult Vitamin D 25-OH Total Today E66.9 - Obesity, unspecified, Z68.38 - Body mass index [BMI] 38.0-38.9, adult Complete Blood Count Auto Diff Today E66.9 - Obesity, unspecified, Z68.38 - Body mass index [BMI] 38.0-38.9, adult Zinc Today E66.9 - Obesity, unspecified, Z68.38 - Body mass index [BMI] 38.0- 38.9, adult Insulin Today E66.9 - Obesity, unspecified, Z68.38 - Body mass index [BMI] 38.0-38.9, adult IRON PROFILE Today E66.9 - Obesity, unspecified, Z68.38 - Body mass index [BMI] 38.0-38.9, adult Vitamin A Today E66.9 - Obesity, unspecified, Z68.38 - Body mass index [BMI] 38.0-38.9, adult Hemoglobin A1c Today E66.9 - Obesity, unspecified, Z68.38 - Body mass index [BMI] 38.0-38.9, adult Vitamin B1 Today E66.9 - Obesity, unspecified, Z68.38 - Body mass index [BMI] 38.0-38.9, adult Vitamin B12 Today E66.9 - Obesity, unspecified, Z68.38 - Body mass index [BMI] 38.0-38.9, adult C Reactive Protein Today E66.9 - Obesity, unspecified, Z68.38 - Body mass index [BMI] 38.0-38.9, adult Ferritin Today E66.9 - Obesity, unspecified, Z68.38 - Body mass index [BMI] 38.0-38.9, adult Medications: New pantoprazole 40 mg PO DAILY 90 tabs 0RF K21.9 - Gastro-esophageal reflux disease without esophagitis sucralfate 10 mL PO BID 600 mL 2RF K21.9 - Gastro-esophageal reflux disease without esophagitis ondansetron Only take one every 12 hours as needed if you have nausea 4 mg PO Q12H 20 tabs 0RF nausea and vomiting R11.0 - Nausea polyethylene glycol 3350 Mix each measuring cup with 8oz of water, Crystal light, or Gatorade zero, or Propel and do 7 measuring cups on 07/02/25 and another 7 measuring cups on 07/03/25 17 grams PO DAILY 238 grams 0RF Z01.818 - Encounter for other preprocedural examination
[2025-06-19 14:43] VITALS: BMI 38.7
== END 2025-06-19 14:51 | disposition home or self-care (01) ==
LOC: HO.HBS 10:05
PROVIDERS: PCP Internal Medicine Medical Oncology; Visit Provider Surgery
DX: E66.812 Obesity, class 2 (principal); E66.09 Other obesity due to excess calories; Z68.38 Body mass index [BMI] 38.0-38.9, adult
CPT/HCPCS: 99214